=== PATIENT | female | born 1995 | race Caucasian/White ===

== ENCOUNTER → 2023-10-24 | Outpatient (CLI) | payer BC, SELFPAY ==
[2023-10-24 10:23] LABS: Prolactin 17.7 ng/mL
[2023-10-29 09:09] LABS: Anti-Cardiolipin Ab, IgA, Qn < 9 APL U/mL (0-11); Anti-Cardiolipin Ab, IgG, Qn < 9 GPL U/mL (0-14); Anti-Cardiolipin Ab, IgM, Qn < 9 MPL U/mL (0-12); Beta-2-Glycoprotein I IgA <9 (0-25); Beta-2-Glycoprotein I IgG <9 (0-20); Beta-2-Glycoprotein I IgM <9 (0-32); Dilute Prothrombin Time (dPT) 37.4 sec (0.0-47.6); Dilute Russell Viper Venom 35.1 sec (0.0-47.0); Interpretation Comment: (.); PTT-LA 41.2 sec (0.0-43.5); Testosterone Free 1.2 pg/mL (0.0-4.2); Thrombin Time 17.4 sec (0.0-23.0); dPT Confirm Ratio 0.97 Ratio (0.00-1.34)
== END | disposition home or self-care (01) ==
PROVIDERS: Referring Provider Obstetrics & Gynecology; Visit Provider Obstetrics & Gynecology
DX: Q51.9 Congenital malformation of uterus and cervix, unspecified (principal)
CPT/HCPCS: 36415; 82627; 84146; 84402; 86146; 86147; 82626

== ENCOUNTER → 2025-04-28 | Outpatient (CLI) | payer OTHER, SELFPAY ==
[2025-04-28 19:34] LABS: hCG Titer Quant., Serum 270 mIU/mL (<9 non-preg)
== END | disposition home or self-care (01) ==
PROVIDERS: Referring Provider Advanced Practice Midwife; Visit Provider Advanced Practice Midwife
DX: N91.2 Amenorrhea, unspecified (principal)
CPT/HCPCS: 36415; 84702

== ENCOUNTER → 2025-04-30 | Outpatient (CLI) | payer OTHER, SELFPAY ==
[2025-04-30 17:33] LABS: hCG Titer Quant., Serum 704 mIU/mL (<9 non-preg)
== END | disposition home or self-care (01) ==
LOC: LAB 16:35
PROVIDERS: Referring Provider Advanced Practice Midwife; Visit Provider Advanced Practice Midwife
DX: N91.2 Amenorrhea, unspecified (principal)
CPT/HCPCS: 36415; 84702

== ENCOUNTER → 2025-06-10 | Outpatient (CLI) | payer OTHER, SELFPAY ==
--- OUTSIDE RECORDS SUMMARY | 2025-06-10 10:07 | XMS RPT_ITS | CCD ---
Author Organization [facility] Care Team Providers Care Hose Seamer Name Role Phone Satinder Dos Santos Unavailable [phone] Maura Monsivais Unavailable Unavailable Satinder Dos Santos Unavailable Unavailable Unavailable Jerson, Josh Heart Unavailable Unavailable Primary Care Provider UnavailDavid Santa Attending Unavailabl e Kulpmont, Dilia Springer Referring Unavailabl e Jerson, Dilia Springer Primary Care Unavailabl David Navarro Attending Unavailabl e Jerson, Dilia Springer Primary Care Unavailabl e Satinder Dos Santos Primary Care Unavailable Jerson, Dilia Springer Attending Unavailabl e Jerson, Dilia Springer Referring Unavailabl e Jerson, Dilia Springer Primary Care Unavailabl e Kulpmont, Dilia Springer Attending Unavailabl e Kulpmont, Dilia Springer Referring Unavailabl e Jerson, Dilia Springer Primary Care Unavailabl e Jerson, Dilia Springer Attending Unavailabl e Jerson, Dilia Springer Referring Unavailabl e Dos SantosSatinder rangel Primary Care Unavailable Kulpmont, Dilia Springer Attending Unavailabl e Jerson, Dilia Springer Referring Unavailabl e Satinder Dos Santos MD Primary Care Provider Jerson Josh GRAFF Primary Care Provider Jerson Josh GRAFF Unavailable JOSH ARTHUR Attending Unavailable JERSON, JOSH Heart Primary Care Unavailable JERSON, JOSH Heart Primary Care Unavailable Dr. Umm Murphy Attending Provider JERSON, JOSH Primary Care Provider Unavailabl e JERSON, JOSH Referring Provider Unavailable Unavailable Primary Care Provider Unavailabl e SATINDER DOS SANTOS Primary Care Unavailable FALLS, LOPEZ SALEH Referring Unavailabl e JERSON, JOSH SPRINGER Admitting Unavailable FALLS, LOPEZ SALEH Attending Unavailabl e DOS SANTOS, SATINDER JACOBS Primary Care Unavailable JERSON, JOSH SPRINGER Referring Unavailable FALLS, LOPEZ SALEH Attending Unavailabl e DOS SANTOS, SATINDER JACOBS Primary Care Unavailable Umm Murphy MD Unavailable ISAAC, VINOD Referring Unavailable BAMBAKIDIS, VINOD Attending Unavailable BAMBAKIDIS, VINOD Attending Unavailable TOMAZICPILAR Referring Unavail able EATON, MARIA TERESA Dugan Attending Unavailable EATON, MARIA TERESA Dugan Referring Unavailable EATON, MARIA TERESA Dugan Attending Unavailable BAMBAKIDIS, VINOD Referring Unavailable BAMBAKIDIS, VINOD Referring Unavailable BAMBAKIDIS, VINOD Referring Unavailable BAMBAKIDIS, VINOD Referring Unavailable EATON, MARIA TERESA Dugan Referring Unavailable EATON, MARIA TERESA Dugan Referring Unavailable EATON, MARIA TERESA S Referring Unavailable Care Physician, No Primary Primary Care Physicia n Unavailable Tej JACOBO, Val Attending Physician [phone] Val Burnham CNM Referring Provider Care Physician, No Primary Primary Care Unava ilable Care Physician, No Primary Referring Unava ilable Val Burnham Attending Unavailable Care Physician, No Primary Primary Care Unava ilable Val Burnham Attending Unavailable Val Burnham Referring Unavailable Care Physician, No Primary Primary Care Unava ilable Val Burnham Attending Unavailable Val Burnham Referring Unavailable Medications Current Medications Medication Drug Class(es) Dates Sig (Normalized) Sig (Original) Biotin (8 sources) BIOTIN ORAL Take by mouth. Active CYANOCOBALAMIN, VITAMIN B-12, ORAL (8 sources) CYANOCOBALAMIN, VITAMIN B-12, ORAL Take by mouth. Active docosahexaenoic acid/epa (FISH OIL ORAL) (8 sources) docosahexaenoic acid/epa (FISH OIL ORAL) Take by mouth. Active DULoxetine 60 mg delayed release oral capsule (1 source) Serotonin and Norepinephrine Reuptake Inhibitor take 1 capsule by mouth once daily Cymbalta 60 mg oral delayed release capsule ; 1 cap(s) orally once a day Quantity: 0 Refills: 0 Ordered: 07-Oct-2019 Meenu Damian Generic Substitution Allowed ergocalciferol 1.25 mg oral capsule (20 sources) Provitamin D2 Compound Start: 05-27-2024 take 1 capsule by mouth every week ergocalciferol 50,000 unit capsule (VITAMIN D2, DRISDOL) Take 1 capsule by mouth one time a week. 12 capsule 05/27/2024 Active Start: 12-13-2022 End: 12-13-2023 take 1 capsule by mouth every week ergocalciferol (Vitamin D-2) 1.25 MG (88663 UT) capsule Indications: Vitamin D deficiency Take 1 capsule (1,250 mcg) by mouth 1 (one) time per week. 12 capsule 3 12/13/2022 12/13/2023 Active Start: 05-31-2022 take 1 capsule by mo uth every week Vitamin D (Ergocalciferol) 1.25 MG (37428 UT) Oral Capsule TAKE 1 CAPSULE ONE TIME A WEEK Quantity: 5 Refills: 3 Ordered: 31-May-2022 Josh Mcclelland Start : 31-May-2022 Active ibuprofen 200 mg oral tablet (9 sources) Nonsteroidal Anti-inflammatory Drug Start: 02-17-2024 End: 05-26-2024 take 3 tablets by mouth every six hours as needed ibuprofen (MOTRIN) 200 mg tablet Take 3 tablets by mouth every 6 hours as needed for pain. Take with food. 02/17/2024 05/26/2024 Discontinued iv contrast (will be provided with radiology test) (10 sources) Start: 09-15-2024 inject 1 dose intravenously once iv contrast (will be provided with radiology test) MRI Brain Inject, intravenously, once for 1 dose.No IV access, insert saline lock prior to beginning of sedation, infusion, injection of imaging exam.Discontinue saline lock post exam. If Pt. has a central line or IVAD, may access for administration according to line specific nursing protocol.Once exam is complete flush line and de-access according to line specific nursing protocol in the MR contrast administration guidelines link 1 Each 09/15/2024 Active Start: 04-02-2024 End: 04-03-2024 inject 1 dose intravenously once iv contrast (will be provided with radiology test) Indications: Numbness and tingling in left hand , Left hand weakness MRI Brain Inject, intravenously, once for 1 dose.No IV access, insert saline lock prior to beginning of sedation, infusion, injection of imaging exam.Discontinue saline lock post exam. If Pt. has a central line or IVAD, may access for administration according to line specific nursing protocol.Once exam is complete flush line and de-access according to line specific nursing protocol in the MR contrast administration guidelines link 1 Each 04/02/2024 04/03/2024 Start: 04-02-2024 End: 04-03-2024 iv contrast (will be provide d with radiology test) Indications: Numbness and tingling in left hand , Left hand weakness MRI CSP Inject, intravenously, once for 1 dose. No IV access, insert saline lock prior to the beginning of sedation, infusion, injection of imaging exam. Discontinue saline lock post exam. If Pt. has a central line or IVAD, may access for administration according to line specific nursing protocol. Once exam is complete flush line and de-access according to line specific nursing protocol in the MR contrast administration guidelines link. 1 Each 04/02/2024 04/03/2024 ocrelizumab (OCREVUS INTRAVENOUS) (8 sources) ocrelizumab (OCR EVUS INTRAVENOUS) Inject intravenously. Active sertraline 25 mg oral tablet (9 sources) Serotonin Reuptake Inhibitor Start: 5 End: 5 take 1 tablet by mouth once daily sertraline (ZOLOFT) 25 mg tablet Take 1 tablet by mouth once daily. 30 tablet 11 11/10/2024 Active vitamin b12 1 mg/ml injectable solution (12 sources) Vitamin B12 Start: 3 cyanocobalamin (Vitamin B-12) 1,000 mcg/mL injection Indications: Vitamin B12 deficiency INJECT 1 ML ONCE EVERY MONTH 1 mL 3 12/13/2022 Active Start: 07-02-2022 inject 1 mL by intra muscular injection every month Cyanocobalamin 1000 MCG/ML Injection Solution INJECT 1 ML INTRAMUSCULARLY ONCE A MONTH Quantity: 1 Refills: 2 Ordered: 05-Jul-2022 Josh Mcclelland Start : 05-Jul-2022 Active Start: 06-04-2022 inject 1 mL by intra muscular injection every month Cyanocobalamin 1000 MCG/ML Injection Solution INJECT 1 ML INTRAMUSCULARLY ONCE A MONTH Quantity: 0 Refills: 0 Ordered: 04-Jun-2022 Josh Mcclelland Start : 04-Jun-2022 Complete Vitamin Deficien cy System-B12 1000 MCG/ML Injection Kit Quantity: 0 Refills: 0 Ordered: 03-Jul-2022 DO Active Completed/Discontinued Medications Medication Drug Class(es) Dates Sig (Normalized) Sig (Original) acetaminophen 500 mg oral tablet (11 sources) Start: 07-13-2024 End: 07-13-2024 take 1 dose by mouth once, then take 4000 mg by mouth once daily 1,000 mg, ORAL, ONCE, 1 dose, On Sat07/13/24 at 1030, No more than 4000 mg of acetaminophen should be given per day (FROM ALL SOURCES) Start: 06-29-2024 End: 06-29-2024 take 1 dose by mouth once, then take 4000 mg by mouth once daily 1,000 mg, ORAL, ONCE, 1 dose, On Sat06/29/24 at 1000, No more than 4000 mg of acetaminophen should be given per day (FROM ALL SOURCES) Start: 02-17-2024 End: 05-26-2024 take 2 tablets by mouth every eight hours as needed acetaminophen (TYLENOL EXTRA STRENGTH) 500 mg tablet Take 2 tablets by mouth every 8 hours as needed for pain. 30 tablet 02/17/2024 05/26/2024 Discontinued diphenhydrAMINE hydrochloride 25 mg oral capsule (2 sources) Histamine-1 Receptor Antagonist Start: 07-13-2024 End: 07-13-2024 take 1 dose by mouth once 50 mg, ORAL, ONCE, 1 dose, On Sat07/13/24 at 1030 Start: 06-29-2024 End: 06-29-2024 take 1 dose by mouth once 50 mg, ORAL, ONCE, 1 dose, O n Sat06/29/24 at 1000 famotidine 20 mg oral tablet (11 sources) Histamine-2 Receptor Antagonist Start: 05-26-2024 End: 09-15-2024 take 1 tablet by mouth twice daily famotidine (PEPCID) 20 mg tablet Take 1 tablet by mouth two times a day. 30 tablet 05/26/2024 09/15/2024 Discontinued methylPREDNISolone 125 mg injection (2 sources) Corticosteroid Start: 07-13-2024 End: 07-13-2024 100 mg, INTRAVENOUS, ONCE, 1 dose, On Sat07/13/24 at 1030 Start: 06-29-2024 End: 06-29-2024 100 mg, INTRAVENOUS, ONCE, 1 dose, On Sat06/29/24 at 1000 10 ml ocrelizumab 30 mg/ml injection (2 sources) Start: 07-13-2024 End: 07-13-2024 300 mg, INTRAVENOUS, ONCE, 1 dose, On Sat07/13/24 at 1030, Initial infusion. Start infusion at 30 mL/hr, Increase by 30 mL/hr every 30 minutes. Maximum rate = 180 mL/hr APPROXIMATE TOTAL VOLUME: 285 mL For 300 mg doses, administer one 300 mg/250 mL bag. For 600 mg doses, administer two 300 mg/250 mL bags. Administer with 0.2 micron filter. Refrigerate. Start: 06-29-2024 End: 06-29-2024 300 mg, INTRAVENOUS, ONCE, 1 dose, On Sat06/29/24 at 1000, Initial infusion. Start infusion at 30 mL/hr, Increase by 30 mL/hr every 30 minutes. Maximum rate = 180 mL/hr APPROXIMATE TOTAL VOLUME: 285 mL For 300 mg doses, administer one 300 mg/250 mL bag. For 600 mg doses, administer two 300 mg/250 mL bags. Administer with 0.2 micron filter. Refrigerate. predniSONE 20 mg oral tablet (20 sources) Start: 05-26-2024 End: 09-15-2024 predniSONE (DELTASONE) 50 mg Indications: multiple sclerosis Take 13 tablets in the morning and 12 tablets in the mid afternoon daily for 3 days. Take with food. 75 tablet 05/26/2024 09/15/2024 Discontinued Start: 05-26-2024 End: 09-15-2024 predniSONE (DELTASONE) 20 mg tablet Take 3 tablets for 4 days, then take 2 tablets for 4 days, then take 1 tablet for 4 days, then stop. 25 tablet 05/26/2024 09/15/2024 Discontinued Problems Active Problems Problem Classification Problem Date Documented Date Episodic/Chronic Anxiety disorders (20 sources) Mixed anxiety and depressive disorder; Translations: [Anxiety disorder, unspecified] Onset: 01-30-2024 01-30-2024 Chronic Female infertility (4 sources) Secondary female infertility; Translations: [Female infertility, unspecified] 10-07-2023 Chronic Comment on above: labs and pelvis mri, SA ordered. 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 Immunizations and screening for infectious disease (5 sources) Anti-nuclear factor positive; Translations: [Other specified abnormal immunological findings in serum] Onset: 12-13-2023 12-13-2023 Episodic Menstrual disorders (1 source) Amenorrhea, unspecified; Translations: [Amenorrhea, unspecified] Onset: 05-07-2025 Chronic Multiple sclerosis (20 sources) Multiple sclerosis; Translations: [Multiple sclerosis] Onset: 05-26-2024 05-26-2024 Chronic Nutritional deficiencies (18 sources) Vitamin D deficiency; Translations: [Unspecified vitamin D deficiency] Onset: 12-13-2022 06-19-2023 Chronic Nutritional deficiencies (15 sources) Cobalamin deficiency; Translations: [Other B-complex deficiencies] Onset: 12-13-2022 06-19-2023 Episodic Other complications of (1 source) Supervision of high risk , unspecified, unspecified trimester; Translations: [Supervision of high risk , unspecified, unspecified trimester] Onset: 06-02-2025 Episodic Other connective tissue disease (4 sources) Weakness of left hand; Translations: [Other symptoms and signs involving the musculoskeletal system] 04-02-2024 Episodic Other female genital disorders (4 sources) History of recurrent miscarriage - not ; Translations: [Recurrent loss without current ] Episodic Other female genital disorders (3 sources) Recurrent miscarriage; 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 Other female genital disorders (1 source) Recurrent loss; Translations: [Full-term ] 10-07-2023 Episodic Other nervous system disorders (1 source) Polyneuropathy; Translations: [Polyneuropathy, unspecified] 04-02-2024 Chronic Other nervous system disorders (1 source) Demyelinating disease of central nervous system; Translations: [Demyelinating disease of central nervous system, unspecified] 05-01-2024 Chronic Other nervous system disorders (2 sources) Polyneuropathy, unspecified; Translations: [Peripheral polyneuropathy] Onset: 04-02-2024 Chronic Other nervous system disorders (1 source) Demyelinating disease of central nervous system, unspecified; Translations: [[employer] demyelination (HCC)] Onset: 05-07-2024 Chronic Other nervous system disorders (10 sources) Numbness and tingling sensation of skin; Translations: [Disturbance of skin sensation] Episodic Other nervous system disorders (7 sources) Numbness of upper limb; Translations: [Anesthesia of skin] Episodic Other nervous system disorders (2 sources) Numbness; Translations: [Anesthesia of skin] Episodic Other nervous system disorders (1 source) Paresthesia of upper limb; Translations: [Anesthesia of skin] 06-19-2023 Episodic Other nervous system disorders (3 sources) Paresthesia of hand ; Translations: [Anesthesia of skin] 04-01-2024 Episodic Other nervous system disorders (1 source) Involuntary movement; Translations: [Other abnormal involuntary movements] 04-01-2024 Episodic Other non-traumatic joint disorders (1 source) Joint stiffness; Translations: [Stiffness of unspecified joint, not elsewhere classified] 06-19-2023 Episodic Other non-traumatic joint disorders (4 sources) Stiffness of unspecified joint, not elsewhere classified; Translations: [Stiffness of unspecified joint, not elsewhere classified] Onset: 06-19-2023 Episodic Other non-traumatic joint disorders (1 source) Joint pain; Translations: [Pain in unspecified joint] 12-13-2023 Episodic Other non-traumatic joint disorders (2 sources) Pain in unspecified joint; Translations: [Pain in unspecified joint] Onset: 12-13-2023 Episodic Other screening for suspected conditions (not mental disorders or infectious disease) (14 sources) Patient encounter status; Translations: [Screening for malignant neoplasms of cervix] Onset: 07-03-2022 Episodic Other skin disorders (3 sources) Hirsutism; Translations: [Hirsutism] 10-07-2023 Episodic Comment on above: labs ordered Other skin disorders (1 source) Hirsutism; Translations: [Hirsutism] 10-07-2023 Episodic Residual codes; unclassified (4 sources) H/O: miscarriage; Translations: [Personal history of other genital system and obstetric disorders] Episodic Comment on above: 12/18/2020_14weeks_10weeks; Residual codes; unclassified (1 source) Trying to conceive; Translations: [Other specified health status] 06-19-2023 Episodic Residual codes; unclassified (4 sources) Other specified health status; Translations: [Other specified health status] Onset: 06-19-2023 Episodic Residual codes; unclassified (1 source) Pain; Translations: [Pain, unspecified] 04-01-2024 Episodic Spontaneous (8 sources) Miscarriage; Translations: [Spontaneous , without mention of complication, unspecified] 12-18-2020 Episodic Unclassified (2 sources) 18 WEEKS MISCARRIAGE THIS MORNING 12-18-2020 Comment on above: 18 WEEKS [place] SCARRIAGE THIS MORNING Unclassified (1 source) SAB (spontaneous ) 12-18-2020 Past or Other Problems Problem Classification Problem Date Documented Date Episodic/Chronic Other connective tissue disease (1 source) Other symptoms and signs involving the musculoskeletal system; Translations: [Left hand weakness] Onset: 05-14-2024 Episodic Other nervous system disorders (7 sources) Anesthesia of skin; Translations: [Anesthesia of skin] Onset: 06-19-2023 Episodic Other nervous system disorders (5 sources) Paresthesia of skin; Translations: [Paresthesia of skin] Onset: 06-19-2023 Episodic Unclassified (4 sources) Finding of menstrual bleeding; Translations: [Menstruation] Comment on above: Onset age 13 years; Results Test Name Value Interpretation Reference Range Facility Serum human chorionic gonado tropin detection for pregnancyOrdered By: Val Burnham on 04-30-2025 HCG ( test) Ql 704 mIU/mL High <9 [facility] Comment on above: Gestational Age0.2-1 Week: 5-50 mIU/mL1-2 Weeks: 50-500 mIU/mL2-3 Weeks: 100-5000 mIU/mL3-4 Weeks: 500-10,000 mIU/mL4-5 Weeks:1000-50,000 mIU/mL5-6 Weeks: 10,000-100,000 mIU/mL6-8 Weeks: 15,000-200,000 mIU/mL2-3 Months:10,000-100,000 mIU/mL hCG Titer Quant., Serumon HCG QUANT. 704 mIU/mL High <9 [facility] Comment on above: Result Comment: Gest ational Age 0.2-1 Week: 5-50 mIU/mL 1-2 Weeks: 50-500 mIU/mL 2-3 Weeks: 100-5000 mIU/mL 3-4 Weeks: 500-10,000 mIU/mL 4-5 Weeks:1000-50,000 mIU/mL 5-6 Weeks: 10,000-100,000 mIU/mL 6-8 Weeks: 15,000-200,000 mIU/mL 2-3 Months:10,000-100,000 mIU/mL Performed By: #### L 700.8000 #### [facility] [address] [place], [address] Serum human chorionic gonado tropin detection for pregnancyOrdered By: Val Burnham on 04-28-2025 HCG ( test) Ql 270 mIU/mL High <9 [facility] Comment on above: Gestational Age0.2-1 Week: 5-50 mIU/mL1-2 Weeks: 50-500 mIU/mL2-3 Weeks: 100-5000 mIU/mL3-4 Weeks: 500-10,000 mIU/mL4-5 Weeks:1000-50,000 mIU/mL5-6 Weeks: 10,000-100,000 mIU/mL6-8 Weeks: 15,000-200,000 mIU/mL2-3 Months:10,000-100,000 mIU/mL [facility]., [facility] mIU/mL High <9 non-preg [facility] Comment on above: Result Comment: Gest ational Age 0.2-1 Week: 5-50 mIU/mL 1-2 Weeks: 50-500 mIU/mL 2-3 Weeks: 100-5000 mIU/mL 3-4 Weeks: 500-10,000 mIU/mL 4-5 Weeks:1000-50,000 mIU/mL 5-6 Weeks: 10,000-100,000 mIU/mL 6-8 Weeks: 15,000-200,000 mIU/mL 2-3 Months:10,000-100,000 mIU/mL Performed By: #### L 700.8000 #### [facility] [address] [place], [address] [facility] Brain Enhancing Lesions None [facility] Brain Interval Improvement None [facility] Brain New T2 Lesions None Site [facility] Brain Other Significant MRI Findings None. [facility] Brain Parenchymal Volume Loss None [facility] Brain T2 [place] of Disease Mild [facility] MR Brain WO and W contrast I Von 12-21-2024 IMPRESSION: Multiple intracranial white matter lesions compatible with multiple sclerosis. No new T2 lesions and no new enhancing lesions. No significant parenchymal volume loss. Other Significant Intracranial Findings: None Balance Wheel Screw Hole Tapper: NANCY Transcribe Date/Time: Dec 21 2024 8:48A Dictated by : KIANA VALENCIA MD This examination was interpreted and the report reviewed and electronically signed by: KIANA VALENCIA MD on Dec 21 2024 8:53AM [facility] DIVISION OF RADIOLOGY * * *Final Report* * * DATE OF EXAM: Dec 21 2024 8:30AM [facility] 0[facility] - MRI BRAIN WO/W IVCON / PROCEDURE REASON: Multiple sclerosis (HCC) * * * * Physician Interpretation * * * * EXAMINATION: MRI BRAIN WO/W IVCON HISTORY: Multiple sclerosis. Routine follow-up TECHNIQUE: Brain MRI with demyelinating disease protocol with and without IV gadolinium. MQ: [id number] Contrast: 7.5 mL Elucirem IV COMPARISON: Brain MRI 08/06/2024. RESULT: MR BRAIN: Parenchymal Findings: There are multiple foci of hyperintensity on FLAIR and T2 within the white matter, compatible with the clinical diagnosis of multiple sclerosis. New T2 Lesions: None Site(s) of New/Larger T2 Lesion(s): Not applicable Interval Improvement: None. New Enhancing Lesions: None T2 [place] of Disease: Mild. Parenchymal Volume Loss: None. Other Significant Findings: None. *Note:? The definition of new T2 Lesions includes both new and enlarging plaques on T2-weighted FLAIR images (new lesions greater than or equal to 5mm3 or an increase in diameter of an existing lesion by greater than or equal to 2mm). DIVISION OF RADIOLOGY Provider, Denny Gutierrez [facility] - 12/21/2024 * * *Final Report* * * DATE OF EXAM: Dec 21 2024 8:30AM [facility] 0295 - MRI BRAIN WO/W IVCON / PROCEDURE REASON: Multiple sclerosis (HCC) * * * * Physician Interpretation * * * * EXAMINATION: MRI BRAIN WO/W IVCON HISTORY: Multiple sclerosis. Routine follow-up TECHNIQUE: Brain MRI with demyelinating disease protocol with and without IV gadolinium. MQ: [id number] Contrast: 7.5 mL Elucirem IV COMPARISON: Brain MRI 08/06/2024. RESULT: MR BRAIN: Parenchymal Findings: There are multiple foci of hyperintensity on FLAIR and T2 within the white matter, compatible with the clinical diagnosis of multiple sclerosis. New T2 Lesions: None Site(s) of New/Larger T2 Lesion(s): Not applicable Interval Improvement: None. New Enhancing Lesions: None T2 [place] of Disease: Mild. Parenchymal Volume Loss: None. Other Significant Findings: None. *Note:? The definition of new T2 Lesions includes both new and enlarging plaques on T2-weighted FLAIR images (new lesions greater than or equal to 5mm3 or an increase in diameter of an existing lesion by greater than or equal to 2mm). IMPRESSION IMPRESSION: Multiple intracranial white matter lesions compatible with multiple sclerosis. No new T2 lesions and no new enhancing lesions. No significant parenchymal volume loss. Other Significant Intracranial Findings: None Balance Wheel Screw Hole Tapper: NANCY Transcribe Date/Time: Dec 21 2024 8:48A Dictated by : KIANA VALENCIA MD This examination was interpreted and the report reviewed and electronically signed by: KIANA VALENCIA MD on Dec 21 2024 8:53AM [facility] MR Brain WO and W contrast I VOrdered By: [facility] Provider on 12-21-2024 [facility] MRI BRAIN WO/W IVCONon 12-21 MRI BRAIN WO/W IVCON * * *Final Report* * * DATE OF EXAM: Dec 21 2024 8:30AM [facility] 0295 - MRI BRAIN WO/W IVCON / PROCEDURE REASON: Multiple sclerosis (HCC) * * * * Physician Interpretation * * * * EXAMINATION: MRI BRAIN WO/W IVCON HISTORY: Multiple sclerosis. Routine follow-up TECHNIQUE: Brain MRI with demyelinating disease protocol with and without IV gadolinium. MQ: [id number] Contrast: 7.5 mL Elucirem IV COMPARISON: Brain MRI 08/06/2024. RESULT: MR BRAIN: Parenchymal Findings: There are multiple foci of hyperintensity on FLAIR and T2 within the white matter, compatible with the clinical diagnosis of multiple sclerosis. New T2 Lesions: None Site(s) of New/Larger T2 Lesion(s): Not applicable Interval Improvement: None. New Enhancing Lesions: None T2 [place] of Disease: Mild. Parenchymal Volume Loss: None. Other Significant Findings: None. *Note:? The definition of new T2 Lesions includes both new and enlarging plaques on T2-weighted FLAIR images (new lesions greater than or equal to 5mm3 or an increase in diameter of an existing lesion by greater than or equal to 2mm). IMPRESSION: Multiple intracranial white matter lesions compatible with multiple sclerosis. No new T2 lesions and no new enhancing lesions. No significant parenchymal volume loss. Other Significant Intracranial Findings: None Balance Wheel Screw Hole Tapper: NANCY Transcribe Date/Time: Dec 21 2024 8:48A Dictated by : KIANA VALENCIA MD This examination was interpreted and the report reviewed and electronically signed by: KIANA VALENCIA MD on Dec 21 2024 8:53AM EST [id number] Normal [facility] No Panel Informationon 12-21 Radiology Study observation (narrative) [facility] CNOVon 09-15-2024 CNOV Office Visit (NEMEFV ) -------- TYLER HO ([id number]) 1995 F Date Time Provider Department 09/15/24 2:00 PM MARIA TERESA EATON NEMEFV During your visit today, we recorded the following information about you: Pulse Blood pressure Weight Height 68/minute 119/77 77.4 kg 1.778 m Maria Teresa Eaton MD 09/15/2024 2:25 PM [facility] FOLLOWUP EVALUATION PRINCIPAL NEUROLOGIC DIAGNOSIS: Multiple sclerosis DISEASE HISTORY Onset: ~ 2020 Diagnosis of MS: MAY 2024 Disease course at onset: relapsing-remitting Current disease course: relapsing-remitting Prior disease therapy: none Current disease therapy: Ocrevus. Date started: 29 JUN 2024 Last MRI brain: 30 APR 2024 Last MRI cervical spine: 30 APR 2024 JCV Status: (+) on 26 MAY 2024 with an Ab Index of 2.33 CDS1: (-) on 26 MAY 2024 INTERVAL HISTORY: Tyler Ho is a 28 year old woman with multiple sclerosis returning for follow-up after our last visit on 26 May 2024. The infusion of Ocrevus went well. She was a little tired following it. She remains able to use her hands. They are a little numb, but nothing that gets in the way too much. Stress tends to make the symptoms worse. She is under stress with her mother who has schizoaffective disorder. From a mood perspective, she has struggled with depression and anxiety for awhile. Her mood is on the lower side and her anxiety is a bit on the higher side. She has been on anti-depressant therapy about 10 years ago. She did not notice a significant improvement with this for her depression. Ms. Ho has noticed brain fog. Short-term is especially affected, especially over the last six months. 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 From a sleep perspective, she usually goes to bed around midnight and she gets up at 5:30 am. On average, she is getting around 5.5 hours of sleep. Bowel and bladder function have been good. She remains stable from a mobility perspective. Sometimes it feels like her eyes are moving slow and do not catch up with her brain. PAST HISTORY REVIEWED: PAST MEDICAL HISTORY Diagnosis Date Multiple sclerosis (HCC) PAST SURGICAL HISTORY Procedure Laterality Date PAST SURGICAL HISTORY OF Intrauterine septum resection TONSILLECTOMY AND ADENOIDECTOMY Current Outpatient Medications Medication Sig ergocalciferol 50,000 unit capsule (VITAMIN D2, DRISDOL) Take 1 capsule by mouth one time a week. predniSONE (DELTASONE) 50 mg Take 13 tablets in the morning and 12 tablets in the mid afternoon daily for 3 days. Take with food. famotidine (PEPCID) 20 mg tablet Take 1 tablet by mouth two times a day. predniSONE (DELTASONE) 20 mg tablet Take 3 tablets for 4 days, then take 2 tablets for 4 days, then take 1 tablet for 4 days, then stop. No current facility-administered medications for this visit. SOCIAL HISTORY REVIEWED: Social History Tobacco Use Smoking status: Never Smokeless tobacco: Never Vaping Use Vaping status: Never Used Substance Use Topics Alcohol use: Yes Alcohol/week: 4.0 standard drinks of alcohol Types: 4 Standard drinks or equivalent per week Comment: every other day 1 drink Drug use: Never ROS: Comprehensive review of systems otherwise was negative, including constitutional, head and neck, cardiovascular, pulmonary, gastrointestinal, endocrine, urologic, reproductive, rheumatic, hematologic, immunologic, dermatologic, and psychiatric. Nutritional concerns: None Driving issues: None Concerns regarding living situation and safety at home: None Risk of falls: None Pain: None EXAM: 09/15/24 1343 BP: 119/77 Pulse: 68 Weight: 77.4 kg (170 lb 10.2 oz) Height: 177.8 cm (5' 10") Well-groomed. No acute distress. The patient was alert and oriented to person, place, and time with normal language, attention and concentration, recent and remote memory, praxis, and intellectual function. Affect was normal. The patient did not appear depressed. VA 20/20 OU. Full EOM without nystagmus or ataxia. Normal facial movements. Normal hearing. Normal palatal movements. Normal tongue movements. No dysarthria. Motor Examination: Right Upper Extremity: (of 5) Left Upper Extremity: (of 5) Deltoid 5 Deltoid 5 Biceps 5 Biceps 5 Triceps 5 Triceps 5 Finger extensors 5- Finger extensors 5- Finger flexors 5- Finger flexors 5 Dorsal interossei 5 Dorsal interossei 5 Abductor pollicis 5 Abductor pollicis 5 Tone (Juan Carlos scale) 0 Tone (Juan Carlos scale) 0 Right Lower Extremity: (of 5) Left Lower Extremity: (of 5) Hip flexors 5- Hip flexors 5 Hip extensors 5 Hip extensors 5 Knee flexors 5 Knee flexors 5 Knee extensors 5 Knee extensors 5 Dorsiflexors 5 Dorsiflexors 5 Plantarflexors 5 Plantarflexors 5 Tone (Juan Carlos scale) 0 Tone (Juan Carlos scale) 0 Modified Juan Carlos Sco (more content not included)... Normal [facility] 09-15-2024 [facility] Telephone (NEMSMN) -------- NUPURTYLER ([id number]) 1995 F Date Time Provider Department 09/15/24 [facility] your visit today, we recorded the following information about you: Ruthie Clemens 09/15/2024 2:26 PM Signed lvm for patient to call so we can get her scheduled for her neuropsychological test Allergies As of Date: 09/15/2024 (No Known Allergies) Date Reviewed: 09/15/2024 Reviewed by: Maria Teresa Eaton MD - Fully Assessed Reason for Visit: Appointment [186] Cmt: lvm for patient to call so we can get her scheduled for her neuropsychological test Prescriptions as of 09/15/2024 - docosahexaenoic acid/epa (FISH OIL ORAL) Take by mouth. - ocrelizumab (OCREVUS INTRAVENOUS) Inject intravenously. - BIOTIN ORAL Take by mouth. - CYANOCOBALAMIN, VITAMIN B-12, ORAL Take by mouth. - iv contrast (will be provided with radiology test) MRI Brain Inject, intravenously, once for 1 dose.No IV access, insert saline lock prior to beginning of sedation, infusion, injection of imaging exam.Discontinue saline lock post exam. If Pt. has a central line or IVAD, may access for administration according to line specific nursing protocol.Once exam is complete flush line and de-access according to line specific nursing protocol in the MR contrast administration guidelines link - sertraline (ZOLOFT) 25 mg tablet Take 1 tablet by mouth once daily. - ergocalciferol 50,000 unit capsule (VITAMIN D2, DRISDOL) Take 1 capsule by mouth one time a week. Problem List As Of Date 09/15/2024 Noted Resolved Anxiety and depression [F41.9, F32.A] 01/30/2024 Multiple sclerosis (HCC) [G35] 05/26/2024 Encounter Status:Closed by RUTHIE CLEMENS on 09/15/24 Normal [facility] IMMUNOGLOBULIN Alejandro 4 IgG [Mass/Vol] 1025 mg/dL 700 - 1600 mg/dL [facility] IMMUNOGLOBULIN Mon 4 IgM [Mass/Vol] 211 mg/dL 40 - 230 mg/dL [facility] IgG SerPl-mCncon 06-29-2024 IgG [Mass/Vol] 1025 mg/dL Normal 700-1600 [facility] Comment on above: Order Comment: Elisa wiggins Type: BLOOD SPECIMENOrdering Facility: [facility] Address: [address] [place] [address] Performed By: #### 2 472-9, 5425-3 ####[facility] LABCLIA [id number] [place] [address] [place] IgM SerPl-mCncon 06-29-2024 IgM [Mass/Vol] 211 mg/dL Normal 40-230 [facility] Comment on above: Order Comment: Elisa wiggins Type: BLOOD SPECIMENOrdering Facility: [facility] Address: [address] [place] [address] Performed By: #### 2 472-9, 5345-3 ####[facility] LABCLIA [id number] [place] [address] [place] No Panel Informationon 06-29 Interpretation and review of laboratory results Normal [facility] Laura 06-22-2024 [facility] Telephone (JOSE A) -------- TYLER HO ([id number]) 1995 F Date Time Provider Department 06/22/24 MARIA TERESA EATON During your visit today, we recorded the following information about you: Elmira Cardoza 06/22/2024 10:46 AM Signed Called to schedule Ocrevus start up dose. patient has been approved for free drug. LVM with phone number to call and schedule Allergies As of Date: 06/22/2024 (No Known Allergies) Date Reviewed: 05/26/2024 Reviewed by: Maria Teresa Eaton MD - Fully Assessed Reason for Visit: Appointment [186] Cmt: Called to schedule Ocrevus start up dose. patient has been approved for free drug. LVM with phone number to call and schedule Prescriptions as of 06/22/2024 - ergocalciferol 50,000 unit capsule (VITAMIN D2, DRISDOL) Take 1 capsule by mouth one time a week. - predniSONE (DELTASONE) 50 mg Take 13 tablets in the morning and 12 tablets in the mid afternoon daily for 3 days. Take with food. - famotidine (PEPCID) 20 mg tablet Take 1 tablet by mouth two times a day. - predniSONE (DELTASONE) 20 mg tablet Take 3 tablets for 4 days, then take 2 tablets for 4 days, then take 1 tablet for 4 days, then stop. Problem List As Of Date 06/22/2024 Noted Resolved Anxiety and depression [F41.9, F32.A] 01/30/2024 Multiple sclerosis (HCC) [G35] 05/26/2024 Encounter Status:Closed by ELMIRA CARDOZA on 06/22/24 [facility] TYLER HO ([id number]) 1995 F Date Time Provider Department 06/17/24 RUBY CEDENO RENE During your visit today, we recorded the following information about you: Ruthie Clemens 06/17/2024 9:00 AM Signed lvm informing patient that her infusion has been scheduled seeing as she should be scheduled for the start up dose and we have to wait for authorization to schedule Allergies As of Date: 06/17/2024 (No Known Allergies) Date Reviewed: 05/26/2024 Reviewed by: Maria Teresa Eaton MD - Fully Assessed Reason for Visit: Appointment [186] Cmt: lvm informing patient that her infusion has been scheduled seeing as she should be scheduled for the start up dose and we have to wait for authorization to schedule Prescriptions as of 06/17/2024 - ergocalciferol 50,000 unit capsule (VITAMIN D2, DRISDOL) Take 1 capsule by mouth one time a week. - predniSONE (DELTASONE) 50 mg Take 13 tablets in the morning and 12 tablets in the mid afternoon daily for 3 days. Take with food. - famotidine (PEPCID) 20 mg tablet Take 1 tablet by mouth two times a day. - predniSONE (DELTASONE) 20 mg tablet Take 3 tablets for 4 days, then take 2 tablets for 4 days, then take 1 tablet for 4 days, then stop. Problem List As Of Date 06/17/2024 Noted Resolved Anxiety and depression [F41.9, F32.A] 01/30/2024 Multiple sclerosis (HCC) [G35] 05/26/2024 Encounter Status:Closed by RUTHIE CLEMENS on 06/17/24 [facility] 06-09-2024 [facility] -------- TYLER HO ([id number]) 1995 F Date Time Provider Department 06/09/24 MARIA TERESA EATON During your visit today, we recorded the following information about you: Val Navarro MA 06/09/2024 10:19 AM Signed === PHARMACY TEAM ==== PEER TO PEER/APPEAL REQUESTED PROVIDER TO COMPLETE P2P or Appeal: Appeal Payer: [facility] DOS: TBS Drug Name(s) AND HCPCS/CPTCode(s): J2350 Ocrevus Dx code(s) submitted: G35 MS Provider: MARIA TERESA EATON Peer to Peer/Appeal reason: Timeframe to complete: 180 days Date sent to provider: 06/09/24 Courtesy page sent (PRN): No Allergies As of Date: 06/09/2024 (No Known Allergies) Date Reviewed: 05/26/2024 Reviewed by: Maria Teresa Eaton MD - Fully Assessed Reason for Visit: Medication Authorization [0589] Cmt: Prior Auth Denied; appeal requested Prescriptions as of 06/09/2024 - ergocalciferol 50,000 unit capsule (VITAMIN D2, DRISDOL) Take 1 capsule by mouth one time a week. - predniSONE (DELTASONE) 50 mg Take 13 tablets in the morning and 12 tablets in the mid afternoon daily for 3 days. Take with food. - famotidine (PEPCID) 20 mg tablet Take 1 tablet by mouth two times a day. - predniSONE (DELTASONE) 20 mg tablet Take 3 tablets for 4 days, then take 2 tablets for 4 days, then take 1 tablet for 4 days, then stop. Problem List As Of Date 06/09/2024 Noted Resolved Anxiety and depression [F41.9, F32.A] 01/30/2024 Multiple sclerosis (HCC) [G35] 05/26/2024 Encounter Status:Closed by VAL NAVARRO on 06/09/24 Normal [facility] 25(OH)D3 SerPl-mCncon 2023 25-hydroxyvitamin D3 [Mass/Vol] 22.9 ng/mL Low 31.0-80.0 [facility] Comment on above: Order Comment: Speci men Type: BLOOD SPECIMENOrdering Facility: [facility] Address: [address] [place] [address] [place] [address] Result Comment: Clas sification of 25 [place] Vitamin D status: Deficiency/Insufficiency: < or = 30 ng/ml. Sufficiency/Optimal Levels: 31-80 ng/mL Toxicity: > 100 ng/mL. Test performed by chemiluminescent immunoassay. Performed By: #### 1 989-3 ####[facility] LABCLIA [id number] [address] BLOOD TB SCREENon 05-26-2024 M. tuberculosis tuberculin stim IFN-g Ql (Bld) Negative Normal [facility] Comment on above: Order Comment: Speci men Type: BLOOD SPECIMEN [facility] Address: [address] [place] [address] Performed By: #### I NFTBP #### [facility] CLIA [id number] [address] [place] [address] [place] MITOGEN MINUS NIL 7.18 IU/mL Normal >=0.50 [facility] Comment on above: Order Comment: Speci men Type: BLOOD SPECIMEN [facility] Address: [address] [place] [address] Performed By: #### I NFTBP #### [facility] CLIA [id number] [address] [place] [address] TB GAMMA INTERPRETATION Infection with M. tuberculosis complex is unlikely. If latent tuberculosis infection is highly suspected, a negative result does not rule out the infection. Specimens from immunocompromised patients and those <5 years of age may show false negative results. In case of a contact investigation, please repeat 8-12 weeks after a known exposure. Normal [facility] Comment on above: Order Comment: Speci men Type: BLOOD SPECIMEN [facility] Address: [address] [place] [address] Performed By: #### I NFTBP #### [facility] CLIA [id number] [address] [place] [address] TB NIL <0.00 Normal <=8.00 [facility] Comment on above: Order Comment: Speci [facility] Type: BLOOD SPECIMEN [facility] Address: [address] [place] [address] Performed By: #### I NFTBP #### [facility] CLIA [id number] [address] [place] [address] [place] TB1 AG MINUS NIL 0.16 IU/mL Normal <0.35 [facility] Comment on above: Order Comment: Speci men Type: BLOOD SPECIMEN [facility] Address: [address] [place] [address] Performed By: #### I NFTBP #### [facility] CLIA [id number] [address] [place] [address] TB2 AG MINUS NIL 0.13 IU/mL Normal <0.35 [facility] Comment on above: Order Comment: Speci men Type: BLOOD SPECIMEN [facility] Address: [address] [place] [address] Performed By: #### I NFTBP #### [facility] CLIA [id number] [address] [place] [address] [place] CBC W Auto Differential pane l (Bld)on 05-26-2024 Basophils (Bld) [#/Vol] 0.04 10*3/uL [facility] Basophils/100 WBC (Bld) 0.5 % [facility] Differential cell count method Nom (Bld) Auto [facility] Eosinophils (Bld) [#/Vol] 0.11 10*3/uL [facility] Eosinophils/100 WBC (Bld) 1.5 % [facility] Erythrocyte distribution width (RBC) [Ratio] 13.1 % 11.5 - 15.0 % [facility] Hematocrit (Bld) [Volume fraction] 40.2 % 36.0 - 46.0 % [facility] Hemoglobin (Bld) [Mass/Vol] 13.2 g/dL 11.5 - 15.5 g/dL [facility] Immature granulocytes (Bld) [#/Vol] [facility] Immature granulocytes/100 WBC (Bld) 0.3 % [facility] Lymphocytes (Bld) [#/Vol] 2.16 10*3/uL [facility] Lymphocytes/100 WBC (Bld) 29.3 % [facility] MCH (RBC) [Entitic mass] 27.6 pg 26.0 - 34.0 pg [facility] MCHC (RBC) [Mass/Vol] 32.8 g/dL 30.5 - 36.0 g/dL [facility] MCV (RBC) [Entitic vol] 83.9 fL 80.0 - 100.0 fL [facility] Monocytes (Bld) [#/Vol] 0.68 10*3/uL NINF [facility] Monocytes/100 WBC (Bld) 9.2 % [facility] Neutrophils (Bld) [#/Vol] 4.36 10*3/uL [facility] Neutrophils/100 WBC (Bld) 59.2 % [facility] Nucleated RBC (Bld) [#/Vol] NINF [facility] Nucleated RBC/100 WBC (Bld) [Ratio] 0.0 % /100 WBC [facility] Platelet mean volume (Bld) [Entitic vol] 10.3 fL 9.0 - 12.7 fL [facility] Platelets (Bld) [#/Vol] 270 10*3/uL [facility] RBC (Bld) [#/Vol] 4.79 10*6/uL 3.90 - 5.2 0 m/uL [facility] WBC (Bld) [#/Vol] 7.37 10*3/uL [facility] Basophils (Bld) [#/Vol] 0.04 10*3/uL Normal <0.11 [facility] Comment on above: Order Comment: Speci men Type: BLOOD SPECIMENOrdering Facility: [facility] Address: [address] [place] [address] Performed By: #### 5 7021-8 ####[facility] [id number] [address] [place] Basophils/100 WBC (Bld) 0.5 % Normal [facility] Comment on above: Order Comment: Speci men Type: BLOOD SPECIMENOrdering Facility: [facility] Address: [address] [place] [address] Performed By: #### 5 7021-8 ####[facility]ORYCLIA [id number] [place] [address] [place] Differential cell count method Nom (Bld) Auto Normal [facility] Comment on above: Order Comment: Speci men Type: BLOOD SPECIMENOrdering Facility: [facility] Address: [address] [place] [address] Performed By: #### 5 7021-8 ####[facility]ORYCLIA [id number] [place] [address] [place] Eosinophils (Bld) [#/Vol] 0.11 10*3/uL Normal <0.46 [facility] Comment on above: Order Comment: Speci men Type: BLOOD SPECIMENOrdering Facility: [facility] Address: [address] [place] [address] Performed By: #### 5 7021-8 ####[facility]ORYCLIA [id number] [address] Eosinophils/100 WBC (Bld) 1.5 % Normal [facility] Comment on above: Order Comment: Speci men Type: BLOOD SPECIMENOrdering Facility: [facility] Address: [address] [place] [address] Performed By: #### 5 7021-8 ####[facility] LABORATORYCLIA [id number] [address] Erythrocyte distribution width (RBC) [Ratio] 13.1 % Normal 11.5-15.0 [facility] Comment on above: Order Comment: Speci men Type: BLOOD SPECIMENOrdering Facility: [facility] Address: [address] [place] [address] Performed By: #### 5 7021-8 ####[facility]ORYCLIA [id number] [address] [place] Hematocrit (Bld) [Volume fraction] 40.2 % Normal 36.0-46.0 [facility] Comment on above: Order Comment: Speci men Type: BLOOD SPECIMENOrdering Facility: [facility] Address: [address] [place] [address] Performed By: #### 5 7021-8 ####[facility]ATORYCLIA [id number] [place] [address] [place] Hemoglobin (Bld) [Mass/Vol] 13.2 g/dL Normal 11.5-15.5 [facility] Comment on above: Order Comment: Speci men Type: BLOOD SPECIMENOrdering Facility: [facility] Address: [address] [place] [address] Performed By: #### 5 7021-8 ####[facility]ORATORYCLIA [id number] [place] [id number] [place] Immature granulocytes (Bld) [#/Vol] 10*3/uL Normal <0.10 [facility] Comment on above: Order Comment: Speci men Type: BLOOD SPECIMENOrdering Facility: [facility] Address: [address] [place] [address] Performed By: #### 5 7021-8 ####[facility]ORATORYCLIA [id number] [place] [address] [place] Immature granulocytes/100 WBC (Bld) 0.3 % Normal [facility] Comment on above: Order Comment: Speci men Type: BLOOD SPECIMENOrdering Facility: [facility] Address: [address] [place] [address] Performed By: #### 5 7021-8 ####[facility]ORATORYCLIA [id number] [place] [address] [place] Lymphocytes (Bld) [#/Vol] 2.16 10*3/uL Normal 1.00-4.00 [facility] Comment on above: Order Comment: Speci men Type: BLOOD SPECIMENOrdering Facility: [facility] Address: [address] [place] [address] Performed By: #### 5 7021-8 ####[facility] LABORATORYCLIA [id number] [place] [id number] [place] Lymphocytes/100 WBC (Bld) 29.3 % Normal [facility] Comment on above: Order Comment: Speci men Type: BLOOD SPECIMENOrdering Facility: [facility] Address: [address] [place] [address] Performed By: #### 5 7021-8 ####[facility]ORATORYCLIA [id number] [place] [address] [place] MCH (RBC) [Entitic mass] 27.6 pg Normal 26.0-34.0 [facility] Comment on above: Order Comment: Speci men Type: BLOOD SPECIMENOrdering Facility: [facility] Address: [address] [place] [address] Performed By: #### 5 7021-8 ####[facility] LABORATORYCLIA [id number] [place] [address] [place] MCHC (RBC) [Mass/Vol] 32.8 g/dL Normal 30.5-36.0 [facility] Comment on above: Order Comment: Speci men Type: BLOOD SPECIMENOrdering Facility: [facility] Address: [address] [place] [address] Performed By: #### 5 7021-8 ####[facility] LABORATORYCLIA [id number] [place] [address] [place] MCV (RBC) [Entitic vol] 83.9 fL Normal 80.0-100.0 [facility] Comment on above: Order Comment: Speci men Type: BLOOD SPECIMENOrdering Facility: [facility] Address: [address] [place] [address] Performed By: #### 5 7021-8 ####[facility] LABORATORYCLIA [id number] [address] [place] Monocytes (Bld) [#/Vol] 0.68 10*3/uL Normal <0.87 [facility] Comment on above: Order Comment: Speci men Type: BLOOD SPECIMENOrdering Facility: [facility] Address: [address] [place] [address] Performed By: #### 5 7021-8 ####[facility]ATORYCLIA [id number] [address] [place] Monocytes/100 WBC (Bld) 9.2 % Normal [facility] Comment on above: Order Comment: Speci men Type: BLOOD SPECIMENOrdering Facility: [facility] Address: [address] [place] [address] Performed By: #### 5 7021-8 ####[facility] LABORATORYCLIA [id number] [place] [address] [place] Neutrophils (Bld) [#/Vol] 4.36 10*3/uL Normal 1.45-7.50 [facility] Comment on above: Order Comment: Speci men Type: BLOOD SPECIMENOrdering Facility: [facility] Address: [address] [place] [address] Performed By: #### 5 7021-8 ####[facility] LABORATORYCLIA [id number] [place] [address] [place] Neutrophils/100 WBC (Bld) 59.2 % Normal [facility] Comment on above: Order Comment: Speci men Type: BLOOD SPECIMENOrdering Facility: [facility] Address: [address] [place] [address] Performed By: #### 5 7021-8 ####[facility] LABORATORYCLIA [id number] [place] [address] [place] Nucleated RBC (Bld) [#/Vol] 10*3/uL Normal <0.01 [facility] Comment on above: Order Comment: Speci men Type: BLOOD SPECIMENOrdering Facility: [facility] Address: [address] [place] [address] Performed By: #### 5 7021-8 ####[facility] LABORATORYCLIA [id number] [place] [address] [place] Nucleated RBC/100 WBC (Bld) [Ratio] 0.0 /100 WBC Normal [facility] Comment on above: Order Comment: Speci men Type: BLOOD SPECIMENOrdering Facility: [facility] Address: [address] [place] [address] Performed By: #### 5 7021-8 ####[facility] LABORATORYCLIA [id number] [place] [address] [place] Platelet mean volume (Bld) [Entitic vol] 10.3 fL Normal 9.0-12.7 [facility] Comment on above: Order Comment: Speci men Type: BLOOD SPECIMENOrdering Facility: [facility] Address: [address] [place] [address] Performed By: #### 5 7021-8 ####[facility] LABORATORYCLIA [id number] [place] [id number] [facility] [place] Platelets (Bld) [#/Vol] 270 10*3/uL Normal 150-400 [facility] Comment on above: Order Comment: Speci men Type: BLOOD SPECIMENOrdering Facility: [facility] Address: [address] [place] [address] Performed By: #### 5 7021-8 ####[facility] LABORATORYCLIA [id number] [place] [id number] [place] RBC (Bld) [#/Vol] 4.79 10*6/uL Normal 3.90-5.20 [facility] Comment on above: Order Comment: Speci men Type: BLOOD SPECIMENOrdering Facility: [facility] Address: [address] [place] [address] Performed By: #### 5 7021-8 ####[facility] LABORATORYCLIA [id number] [place] [id number] [facility] [place] WBC (Bld) [#/Vol] 7.37 10*3/uL Normal 3.70-11.00 [facility] Comment on above: Order Comment: Speci men Type: BLOOD SPECIMENOrdering Facility: [facility] Address: [address] [place] [address] Performed By: #### 5 7021-8 ####[facility] LABORATORYCLIA [id number] [place] [id number] [facility] CNOVon 05-26-2024 CNOV Office Visit (NEMEFV ) -------- TYLER HO ([id number]) 1995 F Date Time Provider Department 05/26/24 8:00 AM MARIA TERESA EATON NEMEFV During your visit today, we recorded the following information about you: Pulse Blood pressure Weight Height 61/minute 126/81 85.7 kg 1.778 m Maria Teresa Eaton MD 05/26/2024 9:12 AM Signed [facility] NEW EVALUATION Referral source: Vinod Gray [id number] [facility] [address] PRINCIPAL NEUROLOGIC DIAGNOSIS: Multiple sclerosis DISEASE HISTORY Onset: ~ 2020 Diagnosis of MS: MAY 2024 Disease course at onset: relapsing-remitting Current disease course: relapsing-remitting Prior disease therapy: none Current disease therapy: none. Date started: NA Last MRI brain: 30 APR 2024 Last MRI cervical spine: 30 APR 2024 HISTORY OF ILLNESS: Consultation on/Evaluation of this 28 year old right-handed woman was requested regarding management of MS. The patient was unaccompanied. Previous records (physician notes, laboratory reports, and radiology reports) and imaging studies were reviewed and summarized. My findings and recommendations will be communicated back to the patient's physician(s) either via the shared medical record or mail. Follow-up is expected to be with me at the [facility]. Ms. Ho began to notice some numbness starting around 2020. This was primarily in her left leg/foot. Over the years, this has spread, but it has always been worse on her left. Now it is worse in the hands than in the feet (though it was previously worse on the left). At the beginning of 2023, Ms. Ho noticed that when she moved her eyes, they felt jittery. She also felt a bit nauseated. Ms. Ho notes that in March she noticed she couldn't use her left hand properly. She couldn't type and she couldn't manipulate her fingers well. She saw orthopedics and was referred to Dr. Gray. After a month, the fingers were still numb but she is now better able to control it. Dr. Gray obtained an MRI, which raised suspicion for multiple sclerosis. She has not been treated with steroids. The hand numbness is worse than her baseline. She doesn't think it has ever been this consistently bad before. At times, she has felt some weakness in her legs. Exercise tends to make things worse. She has not clearly noticed that there is worsening with heat exposure. Ms. Ho also admits to some cognitive difficulties. She has trouble remembering things at times. Prior to the above, she denies any history of episodic neurologic impairment that might be consistent with [employer] demyelination, such as unilateral visual loss, focal weakness/numbness, slurred speech or facial droop. PAST HISTORY: PAST MEDICAL HISTORY Diagnosis Date Multiple sclerosis (HCC) PAST SURGICAL HISTORY Procedure Laterality Date PAST SURGICAL HISTORY OF Intrauterine septum resection TONSILLECTOMY AND ADENOIDECTOMY Transfusions: None No current outpatient medications on file. No current facility-administered medications for this visit. Social History Tobacco Use Smoking status: Never Smokeless tobacco: Never Vaping Use Vaping status: Never Used Substance Use Topics Alcohol use: Yes Alcohol/week: 4.0 standard drinks of alcohol Types: 4 Standard drinks or equivalent per week Comment: every other day 1 drink Drug use: Never FAMILY HISTORY Problem Relation Age of Onset No Known Problems Mother No Known Problems Father Anesthesia Problems No Family History Multiple Sclerosis No Family History REVIEW OF SYSTEMS: Comprehensive review of systems otherwise was negative, including constitutional, head and neck, cardiovascular, pulmonary, gastrointestinal, endocrine, urologic, reproductive, rheumatic, hematologic, immunologic, dermatologic, and psychiatric. Nutritional concerns: None Driving issues: None Concerns regarding living situation and safety at home: None Risk of falls: None Pain: None PHYSICAL EXAM: 05/26/24 0753 BP: 126/81 Pulse: 61 SpO2: 100% Weight: 85.7 kg (188 lb 15 oz) Height: 177.8 cm (5' 10") Hair, skin, nails, and joints were normal. Neck was supple without Lhermitte's phenomenon. There was no percussion tenderness over the spine. Carotids were 2+ without bruits. Thyroid was normal. The patient was alert and oriented to person, place, and time with normal language, attention and concentration, recent and remote memory, praxis, and intellectual function. Affect was normal. The patient did not appear depressed. Visual acuity to near card was as follows: OD= 20/20 (with glasses) OS= 20/20 (with glasses). Visual hdz were full to confrontation. Pupils were 6 mm and briskly reactive OU without a relative afferent pupillary defect. Funduscopic examination was normal without disc edema, erythema, or atrophy. Ocular ductions (more content not included)... Normal [facility] [employer] DEMYELINATING DISEASE Nelson SEVILLA 05-26-2024 [employer] DEMYELINATING DISEASE INTERP, S SEE NOTE Normal [facility] Comment on above: Order Comment: Elisa wiggins Type: BLOOD SPECIMENOrdering Facility: [facility] Address: [address] [place] [address] Result Comment: No i nformative autoantibodies were detected in this evaluation. A negative result does not preclude a diagnosis of an inflammatory [employer] demyelinating disorder. Performed By: #### C DS1SE ####[facility] REFERENCE LABCLIA [id number] [place] [id number] MYELIN OLIGODENDROCYTE GLYCOPROTEIN (MOG-IGG1) FLUORESCENCE-ACTIVATE D CELL Negative Normal Negative [facility] Comment on above: Order Comment: Elisa wiggins Type: BLOOD SPECIMENOrdering Facility: [facility] Address: [address] [place] [address] Result Comment: ADDITIONAL INFORMATION This test was developed and its performance characteristics determined by [facility] in a manner consistent with CLIA requirements. This test has not been cleared or approved by the U.S. Food and Drug Administration. Test Performed by: [place] [id number] Plaster Mold Maker: Lorne Laura Ph.D.; CLIA# [id number] Performed By: #### C DS1SE ####[facility] REFERENCE LABCLIA [id number] [place] [address] NMO/AQPF FACS, S Negative Normal Negative [facility] Comment on above: Order Comment: Elisa wiggins Type: BLOOD SPECIMENOrdering Facility: [facility] Address: [address] [place] [address] Result Comment: ADDITIONAL INFORMATION This test was developed and its performance characteristics determined by [facility] in a manner consistent with CLIA requirements. This test has not been cleared or approved by the U.S. Food and Drug Administration. Performed By: #### C DS1SE ####[facility] REFERENCE LABCLIA [id number] [place] [address] Comprehensive metabolic 2000 panelon 05-26-2024 Albumin [Mass/Vol] 4.5 g/dL 3.9 - 4.9 g/dL [facility] ALP [Catalytic activity/Vol] 46 U/L 34 - 123 U/L [facility] ALT [Catalytic activity/Vol] 7 U/L 7 - 38 U/L [facility] Anion gap [Moles/Vol] 9 mmol/L 8 - 15 mmol/L [facility] AST [Catalytic activity/Vol] 12 U/L Low 13 - 35 U/L [facility] Bilirubin [Mass/Vol] 0.9 mg/dL 0.2 - 1 .3 mg/dL [facility] Calcium [Mass/Vol] 9.6 mg/dL 8.5 - 10. 2 mg/dL [facility] Chloride [Moles/Vol] 107 mmol/L 98 - 10 7 mmol/L [facility] CO2 [Moles/Vol] 25 mmol/L 22 - 30 mmol/L [facility] Creatinine [Mass/Vol] 0.74 mg/dL 0.58 - 0.96 mg/dL [facility] GFR/1.73 sq M.predicted among non-blacks MDRD (S/P/Bld) [Vol rate/Area] 112 mL/min/{1.73_m2} - PINF [facility] Comment on above: Estimated Glomerular Filtration Rate (eGFR) is calculated using the 2020 CKD-EPI creatinine equation. This equation utilizes serum creatinine, sex, and age as parameters. The creatinine assay has traceable calibration to isotope dilution-mass spectrometry. Refer to KDIGO guidelines for clinical interpretation. In patients with unstable renal function, e.g. those with acute kidney injury, the eGFR may not accurately reflect actual GFR. Glucose [Mass/Vol] 100 mg/dL High 74 - 99 mg/dL [facility] Comment on above: The [place] Diabete s Association (ADA) provides guidance for cutoff values for fasting glucose and random glucose. The ADA defines fasting as no caloric intake for at least 8 hours. Fasting plasma glucose results between 100 to 125 mg/dL indicate increased risk for diabetes (prediabetes). Fasting plasma glucose results greater than or equal to 126 mg/dL meet the criteria for diagnosis of diabetes. In the absence of unequivocal hyperglycemia, results should be confirmed by repeat testing. In a patient with classic symptoms of hyperglycemia or hyperglycemic crisis, random plasma glucose results greater than or equal to 200 mg/dL meet the criteria for diagnosis of diabetes. Reference: Standards of Medical Care in Diabetes 2016, [place] Diabetes Association. Diabetes Care. 2016.39(Suppl 1). Interpretation and review of laboratory results Abnormal [facility] Potassium [Moles/Vol] 4.3 mmol/L 3.7 - 5.1 mmol/L [facility] Protein [Mass/Vol] 7.4 g/dL 6.3 - 8.0 g/dL [facility] Sodium [Moles/Vol] 141 mmol/L 136 - 144 mmol/L [facility] Urea nitrogen [Mass/Vol] 11 mg/dL 7 - 21 mg/dL [facility] Albumin [Mass/Vol] 4.5 g/dL Normal 3.9-4.9 [facility] Comment on above: Order Comment: Elisa wiggins Type: BLOOD SPECIMENOrdering Facility: [facility] Address: [address] [place] [address] Performed By: #### 2 4323-8 ####[facility] LABORATORYCLIA [id number] [place] [address] [place] ALP [Catalytic activity/Vol] 46 U/L Normal 34-123 [facility] Comment on above: Order Comment: Elisa wiggins Type: BLOOD SPECIMENOrdering Facility: [facility] Address: [address] [place] [address] Performed By: #### 2 4323-8 ####[facility] LABORATORYCLIA [id number] [place] [id number] [place] ALT [Catalytic activity/Vol] 7 U/L Normal 7-38 [facility] Comment on above: Order Comment: Elisa wiggins Type: BLOOD SPECIMENOrdering Facility: [facility] Address: [address] [place] [address] Performed By: #### 2 4323-8 ####[facility] LABORATORYCLIA [id number] [place] [id number] [place] Anion gap [Moles/Vol] 9 mmol/L Normal 8-15 [facility] Comment on above: Order Comment: Speci men Type: BLOOD SPECIMENOrdering Facility: [facility] Address: [address] [place] [address] Performed By: #### 2 4323-8 ####[facility] LABORATORYCLIA [id number] [place] [id number] [place] AST [Catalytic activity/Vol] 12 U/L Low 13-35 [facility] Comment on above: Order Comment: Speci men Type: BLOOD SPECIMENOrdering Facility: [facility] Address: [address] [place] [address] Performed By: #### 2 4323-8 ####[facility] LABORATORYCLIA [id number] [place] [address] [place] Bilirubin [Mass/Vol] 0.9 mg/dL Normal 0.2-1.3 [facility] Comment on above: Order Comment: Speci men Type: BLOOD SPECIMENOrdering Facility: [facility] Address: [address] [place] [address] Performed By: #### 2 4323-8 ####[facility] LABORATORYCLIA [id number] [place] [address] [place] Calcium [Mass/Vol] 9.6 mg/dL Normal 8.5-10.2 [facility] Comment on above: Order Comment: Speci men Type: BLOOD SPECIMENOrdering Facility: [facility] Address: [address] [place] [address] Performed By: #### 2 4323-8 ####[facility] LABORATORYCLIA [id number] [place] [address] [place] Chloride [Moles/Vol] 107 mmol/L Normal 98-107 [facility] Comment on above: Order Comment: Speci men Type: BLOOD SPECIMENOrdering Facility: [facility] Address: [address] [place] [address] Performed By: #### 2 4323-8 ####[facility] LABORATORYCLIA [id number] [place] [id number] [place] CO2 [Moles/Vol] 25 mmol/L Normal 22-30 [facility] Comment on above: Order Comment: Elisa wiggins Type: BLOOD SPECIMENOrdering Facility: [facility] Address: [address] [place] [address] Performed By: #### 2 4323-8 ####[facility] LABORATORYCLIA [id number] [place] [id number] [place] Creatinine [Mass/Vol] 0.74 mg/dL Normal 0.58-0.96 [facility] Comment on above: Order Comment: Theongozi men Type: BLOOD SPECIMENOrdering Facility: [facility] Address: [address] [place] [address] Performed By: #### 2 4323-8 ####[facility] LABORATORYCLIA [id number] [address] Creatinine and Glomerular filtration rate.predicted panel (S/P/Bld) 112 mL/min/1.73m??? Normal >=60 [facility] Comment on above: Order Comment: Theongozi wiggins Type: BLOOD SPECIMENOrdering Facility: [facility] Address: [address] [place] [address] Result Comment: Umberto mated Glomerular Filtration Rate (eGFR) is calculated using the 2020 CKD-EPI creatinine equation. This equation utilizes serum creatinine, sex, and age as parameters. The creatinine assay has traceable calibration to isotope dilution-mass spectrometry. Refer to KDIGO guidelines for clinical interpretation. In patients with unstable renal function, e.g. those with acute kidney injury, the eGFR may not accurately reflect actual GFR. Performed By: #### 2 4323-8 ####[facility] LABORATORYCLIA [id number] [place] [id number] [place] Glucose [Mass/Vol] 100 mg/dL High 74-99 [facility] Comment on above: Order Comment: Elisa wiggnis Type: BLOOD SPECIMENOrdering Facility: [facility] Address: [address] [place] [address] Result Comment: The [place] Diabetes Association (ADA) provides guidance for cutoff values for fasting glucose and random glucose. The ADA defines fasting as no caloric intake for at least 8 hours. Fasting plasma glucose results between 100 to 125 mg/dL indicate increased risk for diabetes (prediabetes). Fasting plasma glucose results greater than or equal to 126 mg/dL meet the criteria for diagnosis of diabetes. In the absence of unequivocal hyperglycemia, results should be confirmed by repeat testing. In a patient with classic symptoms of hyperglycemia or hyperglycemic crisis, random plasma glucose results greater than or equal to 200 mg/dL meet the criteria for diagnosis of diabetes. Reference: Standards of Medical Care in Diabetes 2016, [place] Diabetes Association. Diabetes Care. 2016.39(Suppl 1). Performed By: #### 2 4323-8 ####[facility] LABORATORYCLIA [id number] [place] [id number] [place] Potassium [Moles/Vol] 4.3 mmol/L Normal 3.7-5.1 [facility] Comment on above: Order Comment: Elisa wiggins Type: BLOOD SPECIMENOrdering Facility: [facility] Address: [address] [place] [address] Performed By: #### 2 4323-8 ####[facility] LABORATORYCLIA [id number] [place] [id number] [place] Protein [Mass/Vol] 7.4 g/dL Normal 6.3-8.0 [facility] Comment on above: Order Comment: Theoi men Type: BLOOD SPECIMENOrdering Facility: [facility] Address: [address] [place] [address] Performed By: #### 2 4323-8 ####[facility] LABORATORYCLIA [id number] [place] [id number] [place] Sodium [Moles/Vol] 141 mmol/L Normal 136-144 [facility] Comment on above: Order Comment: Speci men Type: BLOOD SPECIMENOrdering Facility: [facility] Address: [address] [place] [address] Performed By: #### 2 4323-8 ####[facility] LABORATORYCLIA [id number] [place] [id number] [place] Urea nitrogen [Mass/Vol] 11 mg/dL Normal 7-21 [facility] Comment on above: Order Comment: Speci men Type: BLOOD SPECIMENOrdering Facility: [facility] Address: [address] [place] [address] Performed By: #### 2 4323-8 ####[facility] LABORATORYCLIA [id number] [place] [address] [place] HBV core Ab Ser Qlon 024 HBV core Ab Ql (S) Negative Normal Negative [facility] Comment on above: Order Comment: Speci men Type: BLOOD SPECIMENOrdering Facility: [facility] Address: [address] [place] [address] Result Comment: No e vidence of current or past infection with Hepatitis B virus. Should recent infection be suspected, repeat testing may be considered 3-4 weeks after this draw. Performed By: #### 1 6933-4, 75596-6 ####[facility] LABCLIA [id number] [address] [place] HBV surface Ab Ql (S)on HBV surface Ab Qn (S) 190.36 mIU/mL Normal [facility] Comment on above: Order Comment: Speci men Type: BLOOD SPECIMENOrdering Facility: [facility] Address: [address] [place] [address] Result Comment: <8 m IU/mL: No serological evidence of immunity to Hepatitis B Virus. >/= 8 to <12 mIU/mL: No serological evidence of immunity to Hepatitis B Virus. >/= 12 mIU/mL: Consistent with serological evidence of immunity to Hepatitis B Virus. Performed By: #### 1 6933-4, 51243-2 ####[facility] LABCLIA [id number] [place] [address] [place] HBV surface Ab Ser Qlon HBV surface Ab Ql (S) Positive Normal [facility] Comment on above: Order Comment: Speci men Type: BLOOD SPECIMENOrdering Facility: [facility] Address: [address] [place] [address] Result Comment: Cons istent with serological evidence of immunity to Hepatitis B Virus. Performed By: #### 1 6933-4, 93463-2 ####[facility] LABCLIA [id number] [place] [address] [place] HBV surface Ag Ser Qlon HBV surface Ag Ql (S) Negative Normal Negative [facility] Comment on above: Order Comment: Speci men Type: BLOOD SPECIMENOrdering Facility: [facility] Address: [address] [place] [address] Performed By: #### 5 195-3 ####[facility] LABORATORYCLIA [id number] [place] [address] [place] HCV Ab Ser Qlon 05-26-2024 HCV Ab Ql (S) Negative Normal Negative [facility] Comment on above: Order Comment: Speci men Type: BLOOD SPECIMENOrdering Facility: [facility] Address: [address] [place] [address] Result Comment: The result suggests no evidence of active infection with Hepatitis C virus. Should recent infection be suspected, repeat testing may be considered 4-6 weeks after this draw. Performed By: #### 1 6128-1 ####[facility] LABCLIA [id number] [place] [address] [place] IgG SerPl-mCncon 05-26-2024 IgG [Mass/Vol] 1225 mg/dL Normal 700-1600 [facility] Comment on above: Order Comment: Speci men Type: BLOOD SPECIMENOrdering Facility: [facility] Address: [address] [place] [address] Performed By: #### 2 472-9, 2465-3 ####[facility] LABCLIA [id number] [place] [address] [place] IgM SerPl-mCncon 05-26-2024 IgM [Mass/Vol] 199 mg/dL Normal 40-230 [facility] Comment on above: Order Comment: Speci men Type: BLOOD SPECIMENOrdering Facility: [facility] Address: [address] [place] [address] Performed By: #### 2 472-9, 2465-3 ####[facility] LABCLIA [id number] [id number] [id number] [place] JCV ANTIBODY AND INDEX WITH REFLEXon 05-26-2024 JCV ANTIBODY Positive Abnormal [facility] Comment on above: Order Comment: Elisa wiggins Type: BLOOD SPECIMENOrdering Facility: [facility] Address: [address] [place] [address] Result Comment: Index interpretive criteria: <0.20 negative 0.20-0.40 indeterminate >0.40 positive INTERPRETATION Negative: Antibodies to JCV not detected. Indeterminate: Low level reactivity detected, see Inhibition Assay result below for the final antibody result. Positive: Antibodies to HEATH virus (JCV) detected indicating the patient has been exposed to JCV at an undetermined time. The STRATIFY JCV Antibody Test is an enzyme-linked immunosorbent assay (CHANTEL) designed to detect JCV antibodies to help identify individuals who have been exposed to the virus. Samples with low level reactivity in the detection assay are retested in a confirmation (inhibition) assay to confirm presence or absence of JCV-specific antibodies. Retrospective analyses of post marketing data from various sources, including observational studies and spontaneous reports obtained worldwide, suggest that the risk of developing PML may be associated with relative levels of serum anti-JCV antibody as measured by anti-JCV antibody index.1 1TYSABRI(natalizumab)US Prescribing Information TEST PERFORMED AT: [id number] [facility] [address] [place] [address] Humanities Teacher: Ngozi Pryor MD, PhD Performed By: #### J CVIDX ####[facility] [id number] [place] [id number] JCV INDEX VALUE 2.33 High [facility] Comment on above: Order Comment: Elisa wiggins Type: BLOOD SPECIMENOrdering Facility: [facility] Address: [address] [place] [address] Performed By: #### J CVIDX ####[facility] [id number] [place] [id number] [facility] 05-21-2024 CNPN Telephone ([facility]) -------- TYLER HO ([id number]) 1995 F Date Time Provider Department 05/21/24 MARIA TERESA EATON RENE During your visit today, we recorded the following information about you: Sherrill Rosales LPN 05/21/2024 2:14 PM Signed [facility] NEW PATIENT REFERRAL TRIAGE Referral source:internal referral referring provider defined for this encounter.Isaac Mullins MD Referral Reason: for a second opinion on neurological symptoms Care Everywhere Completed Connection: [x]Yes or []No Date Requested: 05/21/24 Method of Request: Called in Request [x] or Faxed Request [] [employer] Account?: [x]Yes or []No Sherrill Rosales LPN Allergies As of Date: 05/21/2024 (No Known Allergies) Date Reviewed: 05/14/2024 Reviewed by: Vinod Gray MD - Fully Assessed Reason for Visit: 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 - ibuprofen (MOTRIN) 200 mg tablet Take 3 tablets by mouth every 6 hours as needed for pain. Take with food. Problem List As Of Date 05/21/2024 Noted Resolved Anxiety and depression [F41.9, F32.A] 01/30/2024 Encounter Status:Closed by SHERRILL ROSALES on 05/22/24 [place] [facility] 05-14-2024 CNOV Office Visit ([facility] ) -------- TYLER HO ([id number]) 1995 F Date Time Provider Department 05/14/24 3:20 PM VINOD GRAYFV During your visit today, we recorded the following information about you: Temperature Pulse Blood pressure Weight 97.8 degrees 71/minute 130/79 84.6 kg Height 1.803 m Vinod Gray MD 05/14/2024 5:55 PM Signed She is seen in follow-up today because of somatosensory symptoms as well as weakness/clumsiness of the left hand/fingers. There has been significant improvement in the left hand symptomatology. The results of the magnetic resonance imaging of the brain and cervical spine demonstrated numerous T2 hyperintense lesions throughout the bilateral supratentorial and left infratentorial brain as well as multifocally throughout the cervical spinal cord. Many of these lesions demonstrated abnormal postcontrast enhancement. The initial laboratory studies that we had requested together with subsequent further studies were unremarkable save for a low but still normal vitamin B12 level. Today on examination she is awake, alert, pleasant, cooperative and coherent. Her stance is minimally wide-based and the gait is similarly ataxic. There is at least borderline rombergism. The rapid alternating movements of the fingers are well-preserved save for a minimal to mild decrement on the left. Opmuxw-ei-vilo testing is today performed well bilaterally. Cranial Nerves: II-visual hdz full III IV -extraocular movements normal VII-muscles of facial expression normal in power bilaterally Motor System: Strength in the deltoids, biceps, triceps, wrist extensors, finger extensors, interossei, iliopsoas, quadriceps, hamstrings, anterior tibialis and toe extensors is well-preserved. There is no significant tendon reflex asymmetry and no definite Babinski response. In summary, there has been significant improvement. 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 After further consideration we will refer her to one of our colleagues who specializes in these entities. Follow-up will be on an as-needed basis. Allergies As of Date: 05/14/2024 (No Known Allergies) Date Reviewed: 05/14/2024 Reviewed by: Vinod Gray MD - Fully Assessed Reason for Visit: Established Patient [175] Limb Weakness [230] Primary Visit Diagnosis:Left hand weakness [R29.898] Other Visit Diagnosis:Low vitamin B12 level [R79.89] Order(s):METHYLMALONIC ACID [SQMMA] Order #: [id number] FUTURE CONSULT TO NEUROLOGY [4786] Order #: [id number]: 1 FUTURE Prescriptions as of 05/14/2024 - acetaminophen (TYLENOL EXTRA STRENGTH) 500 mg tablet Take 2 tablets by mouth every 8 hours as needed for pain. - ibuprofen (MOTRIN) 200 mg tablet Take 3 tablets by mouth every 6 hours as needed for pain. Take with food. Problem List As Of Date 05/14/2024 Noted Resolved Anxiety and depression [F41.9, F32.A] 01/30/2024 Disposition: Return if symptoms worsen or fail to improve. Follow-up and Disposition History for Encounter Date Provider Department Center 05/14/2024 [id number], PETER [facility] Encounter Status:Closed by VINOD GRAY on 05/14/24 Normal [facility] Methylmalonate SerPl-sCncon 05-14-2024 Methylmalonate [Moles/Vol] 0.10 umol/L Normal <=0.40 [facility] Comment on above: Order Comment: Elisa wiggins Type: BLOOD SPECIMENOrdering Facility: [facility] Address: [address] [place] [address] Result Comment: This test was developed, and its performance characteristics determined by the [facility] Department of Pathology and Laboratory Medicine. It has not been cleared or approved by the FDA. The [facility] Department of Pathology and Laboratory Medicine is regulated under CLIA as qualified to perform high-complexity testing. This test is used for clinical purposes. It should not be regarded as investigational or for research. Performed By: #### 1 3964-2 ####[facility] [id number] [place] [address] [place] PINKY SerPl-cCncon 05-07-2024 Angiotensin converting enzyme [Catalytic activity/Vol] 37 U/L Normal <=52 [facility] Comment on above: Order Comment: Elisa wiggins Type: BLOOD SPECIMENOrdering Facility: [facility] Address: [address] [place] [address] Result Comment: Rachel ficially low PINKY levels may be found for patients taking PINKY inhibitors or after the administration of gadolinium. This test was developed, and its performance characteristics determined by the [facility] Department of Pathology and Laboratory Medicine. It has not been cleared or approved by the FDA. The [facility] Department of Pathology and Laboratory Medicine is regulated under CLIA as qualified to perform high-complexity testing. This test is used for clinical purposes. It should not be regarded as investigational or for research. Performed By: #### 2 742-5 ####[facility] [id number] [place] [address] [place] B. burgdorferi IgG and IgM p arely (S)on 05-07-2024 B. burgdorferi IgG+IgM Qn (S) Negative Normal Negative [facility] Comment on above: Order Comment: Elisa wiggins Type: BLOOD SPECIMEN [facility] Address: [address] [place] [address] Result Comment: Rece nt infection with B. burgdorferi sensu lato cannot be excluded if the specimen collected within four weeks after the onset of signs and symptoms or within six weeks after a known tick exposure. Clinical and epidemiological correlation is required. Performed By: #### 3 4942-3 #### [facility] CLIA [id number] [address] [place] [address] [place] CRP SerPl-mCncon 05-07-2024 CRP [Mass/Vol] mg/L Normal <0.9 [facility] Comment on above: Order Comment: Elisa wiggins Type: BLOOD SPECIMENOrdering Facility: [facility] Address: [address] [place] [address] Performed By: #### 1 988-5, 49461-5 ####[facility] [id number] [place] [address] [place] ESR Westergren method (Bld) [Velocity]on 05-07-2024 ESR (Bld) [Velocity] 8 mm/h Normal 0-20 [facility] Comment on above: Order Comment: Speci men Type: BLOOD SPECIMENOrdering Facility: [facility] Address: [address] [place] [address] Performed By: #### 4 537-7 ####[facility] [id number] [place] [address] [place] Nuclear Ab IA Ql (S)on 05-07 KENISHA SCR QUAL Negative Normal Negative [facility] Comment on above: Order Comment: Speci men Type: BLOOD SPECIMENOrdering Facility: [facility] Address: [address] [place] [address] Result Comment: The qualitative antinuclear antibody screen test performed using the following antigens: dsDNA, Chromatin, Ribosomal P, SS-A 60, SS-A 52, SS-B, Sm, SmRNP, SLAT BASKET TOP MAKER A, SLAT BASKET TOP MAKER 68, Scl-70, Yue-1, and Centromere B. Methodology: Multiplex flow immunoassay. Performed By: #### 4 7383-5 ####[facility] [id number] [place] [address] [place] Rheumatoid fact SerPl-aCncon 05-07-2024 Rheumatoid factor Qn 12 [IU]/mL Normal <16 [facility] Comment on above: Order Comment: Speci rosalie Type: BLOOD SPECIMENOrdering Facility: [facility] Address: [address] [place] [address] Performed By: #### 1 988-5, 34835-5 ####[facility] [id number] [place] [address] [place] CNPMary Beth 05-01-2024 CNPN Telephone ([facility]) -------- TYLER HO ([id number]) 1995 F Date Time Provider Department 05/01/24 VINOD GRAY During your visit today, we recorded the following information about you: Bettye Owens 05/01/2024 11:13 AM Signed Patient called with concerns about her recent brain MRI results. Per patient, the report on MyChart indicated numerous lesions. She is concerned. Please contact patient at [phone]. Gemma Asif RN 05/01/2024 1:27 PM Signed MRI CERVICAL SPINE WO/W IVCON (Order #[id number]) on 04/30/2024 - Order Result History Report MRI BRAIN WO/W IVCON (Order #[id number]) on 04/30/2024 - Order Result History Report See below message and advise. Vinod Gray MD 05/01/2024 7:38 PM Signed Returned telephone call to patient to discuss results of MRI brain and cervical spine including differential diagnosis. Have ordered additional laboratory studies. 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] Order(s):SEDIMENTATION RATE, WESTERGREN [SQWSR] Order #: [id number] FUTURE C-REACTIVE PROTEIN [SQCRP] Order #: [id number] FUTURE RHEUMATOID FACTOR [SQRF] Order #: [id number] FUTURE KENISHA PANEL BLOOD SCRN [SQANA1] Order #: [id number] FUTURE SJOGREN ABS SSA/SSB [SQXSSAB] Order #: [id number] FUTURE DNA AB DS + CONF BLD [SQDNA] Order #: [id number] FUTURE PINKY/ANGIOTENSIN BLD [SQACE] Order #: [id number] FUTURE LYME AB LATE >30 DAYS SYMPTOMS [SQLMLATE] Order #: [id number] FUTURE Prescriptions as of 05/04/2024 - acetaminophen (TYLENOL EXTRA STRENGTH) 500 mg tablet Take 2 tablets by mouth every 8 hours as needed for pain. - ibuprofen (MOTRIN) 200 mg tablet Take 3 tablets by mouth every 6 hours as needed for pain. Take with food. Problem List As Of Date 05/01/2024 Noted Resolved Anxiety and depression [F41.9, F32.A] 01/30/2024 Encounter Status:Closed by GEMMA ASIF on 05/04/24 Normal [facility] COPPER BLOODon 04-30-2024 Copper [Mass/Vol] 90 ug/dL Normal 80-155 [facility] Comment on above: Order Comment: Speci rosalie Type: BLOOD SPECIMENOrdering Facility: [facility] Address: [address] [place] [address] Result Comment: This test was developed, and its performance characteristics determined by the [facility] Department of Pathology and Laboratory Medicine. It has not been cleared or approved by the FDA. The [facility] Department of Pathology and Laboratory Medicine is regulated under CLIA as qualified to perform high-complexity testing. This test is used for clinical purposes. It should not be regarded as investigational or for research. Performed By: #### C OPPER ####[facility] [id number] [place] [id number] [place] Folate SerPl-mCncon 04-30-20 24 Folate [Mass/Vol] 15.4 ng/mL Normal >4.7 [facility] Comment on above: Order Comment: Elisa wiggins Type: BLOOD SPECIMENOrdering Facility: [facility] Address: [address] [place] [address] Performed By: #### 3 016-3, 2132-9, 2885-2, 2284-8 ####[facility]IA [id number] [place] [id number] [place] MR Brain WO and W contrast I Von 04-30-2024 * * *Final Report* * * DATE OF EXAM: Apr 30 2024 3:38PM [facility] 0295 - MRI BRAIN WO/W IVCON / PROCEDURE REASON: multiple diagnoses * * * * Physician Interpretation * * * * EXAMINATION: MRI BRAIN WO/W IVCON, MRI CERVICAL SPINE WO/W IVCON CLINICAL HISTORY: Numbness and tingling TECHNIQUE: Routine brain and cervical spine MRI protocol without and with contrast including intracranial diffusion weighted sequence. Contrast: 16 mL Dotarem IV COMPARISON: None. RESULT: Brain: Acute Change: No evidence of acute infarct. Hemorrhage: No evidence of space-occupying intracranial hemorrhage. Mass Lesion/ Mass Effect: No mass effect identified. White matter and enhancement: Numerous irregular T2 FLAIR hyperintense lesions are present multifocally throughout the bilateral cerebral hemispheric white matter including periventricular, subcortical, and juxtacortical locations, as well as the left lateral jony and adjacent left middle cerebellar peduncle. Several lesions demonstrate associated postcontrast enhancement, with the most avidly enhancing lesion located in the juxtacortical white matter of the left superior frontal gyrus demonstrating an incomplete rim of enhancement. Parenchyma: No significant volume loss for age. Ventricles: Normal caliber and morphology. Skull Base: Hypothalamic and pituitary region are grossly normal. Craniocervical junction is normal. No significant marrow replacement process. Vasculature: Major intracranial arterial structures, and dural venous sinuses show typical flow void, suggesting patency by spin echo criteria. Other: The visualized paranasal sinuses and mastoid air cells are clear. The orbits and extracranial soft tissues are unremarkable. Cervical spine: Counting reference: Craniocervical junction. Anatomic Variants: None. Localizer images: No additional findings. Alignment: Alignment is anatomic. Craniocervical junction: Craniocervical junction is normal. Spinal Cord: Multiple abnormal T2 STIR hyperintense lesions are present throughout the cervical spinal cord, with the largest lesions present at the level of C1 within the left dorsolateral cord, within the left hemicord at the level of C3, the posterior central cord at the level of C4, the right lateral cord at the level of the C4-C5 disc space, and the right dorsolateral cord at the level of C6-C7. Many of these lesions demonstrate abnormal postcontrast enhancement, with the most avidly enhancing intramedullary lesion in the left lateral aspect of the spinal cord at the level of C3. Bone marrow signal/fracture: No evidence of pathologic marrow infiltration. No evidence of prior fracture. Cervical soft tissues: The paraspinal soft tissues are within normal limits. Canal and foramina: Mild multilevel degenerative changes without substantial canal or foraminal stenosis. DIVISION OF RADIOLOGY Provider, [facility] - 04/30/2024 * * *Final Report* * * DATE OF EXAM: Apr 30 2024 3:38PM [facility] 0295 - MRI BRAIN WO/W IVCON / PROCEDURE REASON: multiple diagnoses * * * * Physician Interpretation * * * * EXAMINATION: MRI BRAIN WO/W IVCON, MRI CERVICAL SPINE WO/W IVCON CLINICAL HISTORY: Numbness and tingling TECHNIQUE: Routine brain and cervical spine MRI protocol without and with contrast including intracranial diffusion weighted sequence. Contrast: 16 mL Dotarem IV COMPARISON: None. RESULT: Brain: Acute Change: No evidence of acute infarct. Hemorrhage: No evidence of space-occupying intracranial hemorrhage. Mass Lesion/ Mass Effect: No mass effect identified. White matter and enhancement: Numerous irregular T2 FLAIR hyperintense lesions are present multifocally throughout the bilateral cerebral hemispheric white matter including periventricular, subcortical, and juxtacortical locations, as well as the left lateral jony and adjacent left middle cerebellar peduncle. Several lesions demonstrate associated postcontrast enhancement, with the most avidly enhancing lesion located in the juxtacortical white matter of the left superior frontal gyrus demonstrating an incomplete rim of enhancement. Parenchyma: No significant volume loss for age. Ventricles: Normal caliber and morphology. Skull Base: Hypothalamic and pituitary region are grossly normal. Craniocervical junction is normal. No significant marrow replacement process. Vasculature: Major intracranial arterial structures, and dural venous sinuses show typical flow void, suggesting patency by spin echo criteria. Other: The visualized paranasal sinuses and mastoid air cells are clear. The orbits and extracranial soft tissues are unremarkable. Cervical spine: Counting reference: Craniocervical junction. Anatomic Variants: None. Localizer images: No additional findings. Alignment: Alignment is anatomic. Craniocervical junction: Craniocervical junction is normal. Spinal Cord: Multiple abnormal T2 STIR hyperintense lesions are present throughout the cervical spinal cord, with the largest lesions present at the level of C1 within the left dorsolateral cord, within the left hemicord at the level of C3, the posterior central cord at the level of C4, the right lateral cord at the level of the C4-C5 disc space, and the right dorsolateral cord at the level of C6-C7. Many of these lesions demonstrate abnormal postcontrast enhancement, with the most avidly enhancing intramedullary lesion in the left lateral aspect of the spinal cord at the level of C3. Bone marrow signal/fracture: No evidence of pathologic marrow infiltration. No evidence of prior fracture. Cervical soft tissues: The paraspinal soft tissues are within normal limits. Canal and foramina: Mild multilevel degenerative changes without substantial canal or foraminal stenosis. IMPRESSION IMPRESSION: Numerous T2 hyperintense lesions are present throughout the bilateral supratentorial and left infratentorial brain, as well as multifocally throughout the cervical spinal cord, several of which demonstrate abnormal postcontrast enhancement. These findings are highly concerning for sequelae of extensive demyelinating disease including several areas of active demyelination. URGENT RESULTS Acuity: Urgent Communication: Communicated with VINOD GRAY on 04/30/2024 4:02 PM via verbal communication. --END OF FINDING-- Balance Wheel Screw Hole Tapper: NANCY Transcribe Date/Time: Apr 30 2024 3:41P Dictated by : OLGA MCCOY MD This examination was interpreted and the report reviewed and electronically signed by: OLGA MCCOY MD on Apr 30 2024 4:09PM [facility] MR Cervical spine WO and W c ontrast Alex 04-30-2024 * * *Final Report* * * DATE OF EXAM: Apr 30 2024 3:38PM [facility] 0298 - MRI CERVICAL SPINE WO/W IVCON / PROCEDURE REASON: multiple diagnoses * * * * Physician Interpretation * * * * EXAMINATION: MRI BRAIN WO/W IVCON, MRI CERVICAL SPINE WO/W IVCON CLINICAL HISTORY: Numbness and tingling TECHNIQUE: Routine brain and cervical spine MRI protocol without and with contrast including intracranial diffusion weighted sequence. Contrast: 16 mL Dotarem IV COMPARISON: None. RESULT: Brain: Acute Change: No evidence of acute infarct. Hemorrhage: No evidence of space-occupying intracranial hemorrhage. Mass Lesion/ Mass Effect: No mass effect identified. White matter and enhancement: Numerous irregular T2 FLAIR hyperintense lesions are present multifocally throughout the bilateral cerebral hemispheric white matter including periventricular, subcortical, and juxtacortical locations, as well as the left lateral jony and adjacent left middle cerebellar peduncle. Several lesions demonstrate associated postcontrast enhancement, with the most avidly enhancing lesion located in the juxtacortical white matter of the left superior frontal gyrus demonstrating an incomplete rim of enhancement. Parenchyma: No significant volume loss for age. Ventricles: Normal caliber and morphology. Skull Base: Hypothalamic and pituitary region are grossly normal. Craniocervical junction is normal. No significant marrow replacement process. Vasculature: Major intracranial arterial structures, and dural venous sinuses show typical flow void, suggesting patency by spin echo criteria. Other: The visualized paranasal sinuses and mastoid air cells are clear. The orbits and extracranial soft tissues are unremarkable. Cervical spine: Counting reference: Craniocervical junction. Anatomic Variants: None. Localizer images: No additional findings. Alignment: Alignment is anatomic. Craniocervical junction: Craniocervical junction is normal. Spinal Cord: Multiple abnormal T2 STIR hyperintense lesions are present throughout the cervical spinal cord, with the largest lesions present at the level of C1 within the left dorsolateral cord, within the left hemicord at the level of C3, the posterior central cord at the level of C4, the right lateral cord at the level of the C4-C5 disc space, and the right dorsolateral cord at the level of C6-C7. Many of these lesions demonstrate abnormal postcontrast enhancement, with the most avidly enhancing intramedullary lesion in the left lateral aspect of the spinal cord at the level of C3. Bone marrow signal/fracture: No evidence of pathologic marrow infiltration. No evidence of prior fracture. Cervical soft tissues: The paraspinal soft tissues are within normal limits. Canal and foramina: Mild multilevel degenerative changes without substantial canal or foraminal stenosis. DIVISION OF RADIOLOGY Provider, [facility] - 04/30/2024 * * *Final Report* * * DATE OF EXAM: Apr 30 2024 3:38PM [facility] 0298 - MRI CERVICAL SPINE WO/W IVCON / PROCEDURE REASON: multiple diagnoses * * * * Physician Interpretation * * * * EXAMINATION: MRI BRAIN WO/W IVCON, MRI CERVICAL SPINE WO/W IVCON CLINICAL HISTORY: Numbness and tingling TECHNIQUE: Routine brain and cervical spine MRI protocol without and with contrast including intracranial diffusion weighted sequence. Contrast: 16 mL Dotarem IV COMPARISON: None. RESULT: Brain: Acute Change: No evidence of acute infarct. Hemorrhage: No evidence of space-occupying intracranial hemorrhage. Mass Lesion/ Mass Effect: No mass effect identified. White matter and enhancement: Numerous irregular T2 FLAIR hyperintense lesions are present multifocally throughout the bilateral cerebral hemispheric white matter including periventricular, subcortical, and juxtacortical locations, as well as the left lateral jony and adjacent left middle cerebellar peduncle. Several lesions demonstrate associated postcontrast enhancement, with the most avidly enhancing lesion located in the juxtacortical white matter of the left superior frontal gyrus demonstrating an incomplete rim of enhancement. Parenchyma: No significant volume loss for age. Ventricles: Normal caliber and morphology. Skull Base: Hypothalamic and pituitary region are grossly normal. Craniocervical junction is normal. No significant marrow replacement process. Vasculature: Major intracranial arterial structures, and dural venous sinuses show typical flow void, suggesting patency by spin echo criteria. Other: The visualized paranasal sinuses and mastoid air cells are clear. The orbits and extracranial soft tissues are unremarkable. Cervical spine: Counting reference: Craniocervical junction. Anatomic Variants: None. Localizer images: No additional findings. Alignment: Alignment is anatomic. Craniocervical junction: Craniocervical junction is normal. Spinal Cord: Multiple abnormal T2 STIR hyperintense lesions are present throughout the cervical spinal cord, with the largest lesions present at the level of C1 within the left dorsolateral cord, within the left hemicord at the level of C3, the posterior central cord at the level of C4, the right lateral cord at the level of the C4-C5 disc space, and the right dorsolateral cord at the level of C6-C7. Many of these lesions demonstrate abnormal postcontrast enhancement, with the most avidly enhancing intramedullary lesion in the left lateral aspect of the spinal cord at the level of C3. Bone marrow signal/fracture: No evidence of pathologic marrow infiltration. No evidence of prior fracture. Cervical soft tissues: The paraspinal soft tissues are within normal limits. Canal and foramina: Mild multilevel degenerative changes without substantial canal or foraminal stenosis. IMPRESSION IMPRESSION: Numerous T2 hyperintense lesions are present throughout the bilateral supratentorial and left infratentorial brain, as well as multifocally throughout the cervical spinal cord, several of which demonstrate abnormal postcontrast enhancement. These findings are highly concerning for sequelae of extensive demyelinating disease including several areas of active demyelination. URGENT RESULTS Acuity: Urgent Communication: Communicated with VINOD GRAY on 04/30/2024 4:02 PM via verbal communication. --END OF FINDING-- Balance Wheel Screw Hole Tapper: NANCY Transcribe Date/Time: Apr 30 2024 3:41P Dictated by : OLGA MCCOY MD This examination was interpreted and the report reviewed and electronically signed by: OLGA MCCOY MD on Apr 30 2024 4:09PM EST [facility] MRI BRAIN WO/W IVCONon 04-30 MRI BRAIN WO/W IVCON * * *Final Report* * * DATE OF EXAM: Apr 30 2024 3:38PM MANNY Sutherland5 - MRI BRAIN WO/W IVCON / PROCEDURE REASON: multiple diagnoses * * * * Physician Interpretation * * * * EXAMINATION: MRI BRAIN WO/W IVCON, MRI CERVICAL SPINE WO/W IVCON CLINICAL HISTORY: Numbness and tingling TECHNIQUE: Routine brain and cervical spine MRI protocol without and with contrast including intracranial diffusion weighted sequence. Contrast: 16 mL Dotarem IV COMPARISON: None. RESULT: Brain: Acute Change: No evidence of acute infarct. Hemorrhage: No evidence of space-occupying intracranial hemorrhage. Mass Lesion/ Mass Effect: No mass effect identified. White matter and enhancement: Numerous irregular T2 FLAIR hyperintense lesions are present multifocally throughout the bilateral cerebral hemispheric white matter including periventricular, subcortical, and juxtacortical locations, as well as the left lateral jony and adjacent left middle cerebellar peduncle. Several lesions demonstrate associated postcontrast enhancement, with the most avidly enhancing lesion located in the juxtacortical white matter of the left superior frontal gyrus demonstrating an incomplete rim of enhancement. Parenchyma: No significant volume loss for age. Ventricles: Normal caliber and morphology. Skull Base: Hypothalamic and pituitary region are grossly normal. Craniocervical junction is normal. No significant marrow replacement process. Vasculature: Major intracranial arterial structures, and dural venous sinuses show typical flow void, suggesting patency by spin echo criteria. Other: The visualized paranasal sinuses and mastoid air cells are clear. The orbits and extracranial soft tissues are unremarkable. Cervical spine: Counting reference: Craniocervical junction. Anatomic Variants: None. Localizer images: No additional findings. Alignment: Alignment is anatomic. Craniocervical junction: Craniocervical junction is normal. Spinal Cord: Multiple abnormal T2 STIR hyperintense lesions are present throughout the cervical spinal cord, with the largest lesions present at the level of C1 within the left dorsolateral cord, within the left hemicord at the level of C3, the posterior central cord at the level of C4, the right lateral cord at the level of the C4-C5 disc space, and the right dorsolateral cord at the level of C6-C7. Many of these lesions demonstrate abnormal postcontrast enhancement, with the most avidly enhancing intramedullary lesion in the left lateral aspect of the spinal cord at the level of C3. Bone marrow signal/fracture: No evidence of pathologic marrow infiltration. No evidence of prior fracture. Cervical soft tissues: The paraspinal soft tissues are within normal limits. Canal and foramina: Mild multilevel degenerative changes without substantial canal or foraminal stenosis. IMPRESSION: Numerous T2 hyperintense lesions are present throughout the bilateral supratentorial and left infratentorial brain, as well as multifocally throughout the cervical spinal cord, several of which demonstrate abnormal postcontrast enhancement. These findings are highly concerning for sequelae of extensive demyelinating disease including several areas of active demyelination. URGENT RESULTS Acuity: Urgent Communication: Communicated with VINOD GRAY on 04/30/2024 4:02 PM via verbal communication. --END OF FINDING-- Balance Wheel Screw Hole Tapper: NANCY Transcribe Date/Time: Apr 30 2024 3:41P Dictated by : OLGA MCCOY MD This examination was interpreted and the report reviewed and electronically signed by: OLGA MCCOY MD on Apr 30 2024 4:09PM EST [id number] Normal [facility] MRI CERVICAL SPINE WO/W IVCO Non 04-30-2024 MRI CERVICAL SPINE WO/W IVCON * * *Final Report* * * DATE OF EXAM: Apr 30 2024 3:38PM [facility] [id number] - MRI CERVICAL SPINE WO/W IVCON / PROCEDURE REASON: multiple diagnoses * * * * Physician Interpretation * * * * EXAMINATION: MRI BRAIN WO/W IVCON, MRI CERVICAL SPINE WO/W IVCON CLINICAL HISTORY: Numbness and tingling TECHNIQUE: Routine brain and cervical spine MRI protocol without and with contrast including intracranial diffusion weighted sequence. Contrast: 16 mL Dotarem IV COMPARISON: None. RESULT: Brain: Acute Change: No evidence of acute infarct. Hemorrhage: No evidence of space-occupying intracranial hemorrhage. Mass Lesion/ Mass Effect: No mass effect identified. White matter and enhancement: Numerous irregular T2 FLAIR hyperintense lesions are present multifocally throughout the bilateral cerebral hemispheric white matter including periventricular, subcortical, and juxtacortical locations, as well as the left lateral jony and adjacent left middle cerebellar peduncle. Several lesions demonstrate associated postcontrast enhancement, with the most avidly enhancing lesion located in the juxtacortical white matter of the left superior frontal gyrus demonstrating an incomplete rim of enhancement. Parenchyma: No significant volume loss for age. Ventricles: Normal caliber and morphology. Skull Base: Hypothalamic and pituitary region are grossly normal. Craniocervical junction is normal. No significant marrow replacement process. Vasculature: Major intracranial arterial structures, and dural venous sinuses show typical flow void, suggesting patency by spin echo criteria. Other: The visualized paranasal sinuses and mastoid air cells are clear. The orbits and extracranial soft tissues are unremarkable. Cervical spine: Counting reference: Craniocervical junction. Anatomic Variants: None. Localizer images: No additional findings. Alignment: Alignment is anatomic. Craniocervical junction: Craniocervical junction is normal. Spinal Cord: Multiple abnormal T2 STIR hyperintense lesions are present throughout the cervical spinal cord, with the largest lesions present at the level of C1 within the left dorsolateral cord, within the left hemicord at the level of C3, the posterior central cord at the level of C4, the right lateral cord at the level of the C4-C5 disc space, and the right dorsolateral cord at the level of C6-C7. Many of these lesions demonstrate abnormal postcontrast enhancement, with the most avidly enhancing intramedullary lesion in the left lateral aspect of the spinal cord at the level of C3. Bone marrow signal/fracture: No evidence of pathologic marrow infiltration. No evidence of prior fracture. Cervical soft tissues: The paraspinal soft tissues are within normal limits. Canal and foramina: Mild multilevel degenerative changes without substantial canal or foraminal stenosis. IMPRESSION: Numerous T2 hyperintense lesions are present throughout the bilateral supratentorial and left infratentorial brain, as well as multifocally throughout the cervical spinal cord, several of which demonstrate abnormal postcontrast enhancement. These findings are highly concerning for sequelae of extensive demyelinating disease including several areas of active demyelination. URGENT RESULTS Acuity: Urgent Communication: Communicated with VINOD GRAY on 04/30/2024 4:02 PM via verbal communication. --END OF FINDING-- Balance Wheel Screw Hole Tapper: NANCY Transcribe Date/Time: Apr 30 2024 3:41P Dictated by : OLGA MCCOY MD This examination was interpreted and the report reviewed and electronically signed by: OLGA MCCOY MD on Apr 30 2024 4:09PM EST [id number] Normal [facility] No Panel Informationon 04-30 IMPRESSION: Numerous T2 hyperintense lesions are present throughout the bilateral supratentorial and left infratentorial brain, as well as multifocally throughout the cervical spinal cord, several of which demonstrate abnormal postcontrast enhancement. These findings are highly concerning for sequelae of extensive demyelinating disease including several areas of active demyelination. URGENT RESULTS Acuity: Urgent Communication: Communicated with VINOD GRAY on 04/30/2024 4:02 PM via verbal communication. --END OF FINDING-- Balance Wheel Screw Hole Tapper: NANCY Transcribe Date/Time: Apr 30 2024 3:41P Dictated by : OLGA MCCOY MD This examination was interpreted and the report reviewed and electronically signed by: OLGA MCCOY MD on Apr 30 2024 4:09PM [facility] DIVISION OF RADIOLOGY Radiology Study observation (narrative) [facility] No Panel InformationOrdered By: Ccf Provider on 04-30-2024 [facility] PROTEIN ELECTROPHORESIS SERU M WITH EMILY (P)on 04-30-2024 Albumin [Mass/Vol] 4.15 g/dL Normal 3.43-5.41 [facility] Comment on above: Order Comment: Speci men Type: BLOOD SPECIMENOrdering Facility: [facility] Address: [address] [place] [address] Performed By: #### L [id number] ####[facility] LABIA [id number] [place] [address] [place] Alpha 1 globulin Elph [Mass/Vol] 0.24 g/dL Normal 0.18-0.43 [facility] Comment on above: Order Comment: Speci men Type: BLOOD SPECIMENOrdering Facility: [facility] Address: [address] [place] [address] Performed By: #### L [id number] ####[facility] LABIA [id number] [place] [address] [place] Alpha 2 globulin Elph [Mass/Vol] 0.55 g/dL Normal 0.42-0.98 [facility] Comment on above: Order Comment: Speci men Type: BLOOD SPECIMENOrdering Facility: [facility] Address: [address] [place] [address] Performed By: #### L [id number] ####[facility] LABCLIA [id number] [address] [place] Beta globulin Elph [Mass/Vol] 0.66 g/dL Normal 0.61-1.17 [facility] Comment on above: Order Comment: Speci men Type: BLOOD SPECIMENOrdering Facility: [facility] Address: [address] [place] [address] Performed By: #### L [id number] ####[facility] LABIA [id number] [place] [address] [place] COMMENT (SERUM PROT ELECTRO) Monoclonal Protein analysis (immunofixation) is not indicated. Normal [facility] Comment on above: Order Comment: Speci men Type: BLOOD SPECIMENOrdering Facility: [facility] Address: [address] [place] [address] Performed By: #### L [id number] ####[facility] LABCLIA [id number] [address] [place] Gamma globulin Elph [Mass/Vol] 1.11 g/dL Normal 0.53-1.51 [facility] Comment on above: Order Comment: Speci men Type: BLOOD SPECIMENOrdering Facility: [facility] Address: [address] [place] [address] Performed By: #### L [id number] ####[facility] LABCLIA [id number] [address] [place] M-PROTEIN LOCATION Normal [facility] Comment on above: Order Comment: Speci men Type: BLOOD SPECIMENOrdering Facility: [facility] Address: [address] [place] [address] Result Comment: Not Applicable. Performed By: #### L [id number] ####[facility] LABCLIA [id number] [place] [address] [place] Protein Fractions [Interp] No definitive M protein is identified on protein electrophoresis. Normal No definitive M protein is identified on protein electrophore sis. [facility] Comment on above: Order Comment: Speci men Type: BLOOD SPECIMENOrdering Facility: [facility] Address: [address] [place] [address] Performed By: #### L [id number] ####[facility] LABIA [id number] [place] [address] [place] Protein.monoclonal Elph [Mass/Vol] 0.00 g/dL Normal <=0.00 [facility] Comment on above: Order Comment: Speci men Type: BLOOD SPECIMENOrdering Facility: [facility] Address: [address] [place] [address] Performed By: #### L [id number] ####[facility] LABIA [id number] [place] [address] [place] SPE STAFF REVIEW Reviewed by Dr. Barbara Reddy MD [place] Comment on above: Order Comment: Speci men Type: BLOOD SPECIMENOrdering Facility: [facility] Address: [address] [place] [address] Performed By: #### L [id number] ####[facility] LABIA [id number] [place] [address] [place] Prot SerPl-mCncon 04-30-2024 Protein [Mass/Vol] 6.7 g/dL Normal 6.3-8.0 [facility] Comment on above: Order Comment: Speci men Type: BLOOD SPECIMENOrdering Facility: [facility] Address: [address] [place] [address] Performed By: #### 3 016-3, 2132-9, 2885-2, 2284-8 ####[facility] LABIA [id number] [place] [address] [place] TSH SerPl-aCncon 04-30-2024 TSH Qn 2.320 m[IU]/L Normal 0.270-4.200 [facility] Comment on above: Order Comment: Elisa wiggins Type: BLOOD SPECIMENOrdering Facility: [facility] Address: [address] [place] [address] [place] [address] Result Comment: If t he patient is , TSH reference range varies by gestational period: First Trimester (weeks 9-12): 0.180-2.990 mIU/L Second Trimester: 0.110-3.980 mIU/L Third Trimester: 0.480-4.710 mIU/L Yoni Heart et al. A Practical Approach for the Verifications and Determination of Site- and Trimester-Specific Reference Intervals for Thyroid Function tests in . Thyroid, 2019:29:3:412-420. Chauncey Thacker et al. 2017 Guidelines of the [place] Thyroid Association for the Diagnosis and Management of Thyroid Disease during and the . Thyroid, 2017:27:3:315-389. Performed By: #### 3 016-3, 2132-9, 2885-2, 2284-8 ####[facility] LABCLIA [id number] [address] [place] VITAMIN B1 (THIAMINE), WHOLE BLOODon 04-30-2024 Thiamine (Bld) [Moles/Vol] 130.5 nmol/L Normal 84.3-213.3 [facility] Comment on above: Order Comment: Elisa wiggins Type: BLOOD SPECIMENOrdering Facility: [facility] Address: [address] [place] [address] Result Comment: This assay measures the concentration of thiamine diphosphate (TDP), the primary active form of vitamin B1. Approximately 90 percent of vitamin B1 present in whole blood is TDP. Thiamine and thiamine monophosphate, which comprise the remaining 10 percent, are not measured. This test was developed, and its performance characteristics determined by the [facility] Department of Pathology and Laboratory Medicine. It has not been cleared or approved by the FDA. The [facility] Department of Pathology and Laboratory Medicine is regulated under CLIA as qualified to perform high-complexity testing. This test is used for clinical purposes. It should not be regarded as investigational or for research. Performed By: #### B 1WB ####[facility] LABIA [id number] [place] [address] [place] VITAMIN B6/PYRIDOXINon 04-30 VITAMIN B6 62.4 nmol/L Normal 20.0-125.0 [facility] Comment on above: Order Comment: Speci men Type: BLOOD SPECIMENOrdering Facility: [facility] Address: [address] [place] [address] Result Comment: INTE RPRETIVE INFORMATION: Vitamin B6 (Pyridoxal 5-Phosphate) Pyridoxal 5'-phosphate measured in a specimen collected following an 8-hour or overnight fast accurately indicates vitamin B6 nutritional status. Non-fasting specimen concentration reflects recent vitamin intake. This test was developed and its performance characteristics determined by [employer]. It has not been cleared or approved by the [place] Food and Drug Administration. This test was performed in a CLIA certified laboratory and is intended for clinical purposes. Performed By: [facility] [address] [address] [employer] Associate: Reza Sales MD, PhD CLIA Number: [id number] Performed By: #### V ITB6 ####[facility] [id number] [place] [address] Vit B12 SerPl-ncon 024 Cobalamin (Vitamin B12) [Mass/Vol] 319 pg/mL Normal 232-1245 [facility] Comment on above: Order Comment: Speci men Type: BLOOD SPECIMENOrdering Facility: [facility] Address: [address] [place] [address] Performed By: #### 3 016-3, 2132-9, 2885-2, 2284-8 ####[facility] LABIA [id number] [address] [place] Laura 04-21-2024 EFRAIN Telephone (NEAD[facility]) -------- NUPURTYLER ([id number]) 1995 F Date Time Provider Department 04/21/24 VERONA HUANG During your visit today, we recorded the following information about you: Gemma Asif, RN 04/21/2024 1:54 PM Signed Received corespondence from [facility] stating peer to peer needed for MRI Brain w/wo contrast 63384. Denial reason was that there has been a previously approved MRI Brain and that it needs to be confirmed that the prior approved study has not been completed. Spoke with textile designs sales representative Cynthia at [facility] and informed that per note with patient on 04/02: She has not had magnetic resonance imaging of the the brain or spinal axis. Cynthia said Authorization for MRI Brain is [id number] and C-spine MRI authorization is [id number]. Message sent to pre access with the above information. Ally Rashidrey 06/15/2024 12:54 PM Signed lvm for patient to call so we can ge her scheduled for her start up dose of her infusion and a 3 month follow up Allergies As of Date: 04/21/2024 (No Known Allergies) Date Reviewed: 04/02/2024 Reviewed by: Vinod Gray MD - Fully Assessed Reason for Visit: Appointment [186] Cmt: lvm for patient to call so we can ge her scheduled for her start up dose of her infusion and a 3 month follow up Prescriptions as of 06/15/2024 - ergocalciferol 50,000 unit capsule (VITAMIN D2, DRISDOL) Take 1 capsule by mouth one time a week. - predniSONE (DELTASONE) 50 mg Take 13 tablets in the morning and 12 tablets in the mid afternoon daily for 3 days. Take with food. - famotidine (PEPCID) 20 mg tablet Take 1 tablet by mouth two times a day. - predniSONE (DELTASONE) 20 mg tablet Take 3 tablets for 4 days, then take 2 tablets for 4 days, then take 1 tablet for 4 days, then stop. Problem List As Of Date 04/21/2024 Noted Resolved Anxiety and depression [F41.9, F32.A] 01/30/2024 Encounter Status:Closed by [facility]ENS [facility] ) -------- TYLER HO ([id number]) 1995 F Date Time Provider Department 04/02/24 9:00 AM VINOD GRAY During your visit today, we recorded the following information about you: Temperature Pulse Blood pressure Weight 99.2 degrees 89/minute 138/88 85 kg Height 1.803 m Vinod Gray MD 04/05/2024 3:11 PM Signed Ms. Tyler Anderson is referred by Dr. Pilar Ortiz for an initial outpatient consultation because of somatosensory symptoms. She is a 28-year-old right-handed white female with a past medical history that is otherwise insignificant. She is here primarily because of a sense of numbness in the left hand as though she was "wearing a glove" together with impaired fine motor skills in this hand chiefly noted with typing and other similar activities. This is part of a wider issue involving somatosensory symptoms that began gradually in her legs perhaps more so on the left approximately three years ago this involved the top of the thigh as well as the knee but not the foot. My overall sense is that since then this has been a persistent albeit fluctuating phenomenon which gradually migrated to involve the left side of the neck, cheek and even inside the mouth. Although fluctuating it has become more prominent particularly in the last few weeks. Involvement of the left hand began shortly after the lower extremities as previously delineated. Other areas of involvement perhaps more sporadically have included the abdomen and the saddle region. There are no clear-cut aggravating factors save for her noticing that the symptoms tend to be most prominent in the morning and later in the day she believes perhaps because during the day itself she is focused on other things. She reports that physical activity as well as alcoholic beverages tend to aggravate the symptoms. There are no clear-cut relieving factors aside from avoiding those that aggravate the symptoms. She does relate that she has a fair bit of stiffness and aching in the cervical and shoulder regions. There is no history suggestive of Uhthoff's phenomenon but there is at least an equivocal history consistent with Lhermitte's. She denies any dragging of a leg, history suggestive of Optic Neuritis, unexplained vertigo or other somatosensory symptoms. There is at least an equivocal history of a constricted sensation around her waist or pelvis. An EMG performed in 2022 was unremarkable and she advises that because of an elevated antinuclear antibody she underwent a rheumatologic evaluation that did not demonstrate definite findings consistent with an underlying rheumatologic disease. She has not had magnetic resonance imaging of the the brain or spinal axis. Past Medical History: Her past medical history is as previously delineated. Family History: There is no history in her family of inherited problems with coordination, Multiple Sclerosis, muscular dystrophy, peripheral nerve disease, parkinsonism, recurrent troublesome headaches or seizure disorder. Her maternal great grandmother had dementia. Psychosocial History: She has been six years and has no children. She does not smoke. She has 2-3 drinks monthly. 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 Review of Systems. As of late she has been having headaches which are not particularly troublesome. These involve the eyes and the posterior head region. They may occur up to every other day or so. She believes she may have fainted on a few occasions when she has forgotten to eat. She denies any history of seizures. Likewise she denies any weakness, wasting, unusual cramping or twitching of her muscles, numbness or tingling aside from what we have already mentioned. She has noticed occasional twitching and cramping in her hands. There are no visual difficulties aside from wearing corrective lenses and she denies any aberration of her sense of hearing, taste or smell. Speech, swallowing, bladder and bowel function are unimpaired. She has lost consciousness for 30 to 60 seconds on 3 occasions secondary to head trauma. There is no history of fracture of the spinal column, meningitis or encephalitis. Neurologic examination on April 02, 2024 revealed an awake, alert, pleasant, cooperative and coherent woman. Her stance is mildly wide-based and I suspect the gait was similarly ataxic. There was a most borderline Rhomberg exam. We did not have her walk tandem today. The rapid alternating movements of the tongue fingers and toes were performed well save for a moderate decrement in the left fingers. Finger-nose testing was performed well on the right but there was at least a mild to moderate appendicular ataxia as she approached the target on the left. Cranial Nerves: II-visual hdz full, fundi benign although I query the possibility of (more content not included)... Normal [facility] HISTORY PHYSICALon HISTORY PHYSICAL HNO ID: [id number] Author: VINOD GRAY MD Service: ? Author Type: Physician Type: H&P Filed: 04/05/2024 15:11 Note Text: Ms. Tyler Anderson is referred by Dr. Pilar Ortiz for an initial outpatient consultation because of somatosensory symptoms. She is a 28-year-old right-handed white female with a past medical history that is otherwise insignificant. She is here primarily because of a sense of numbness in the left hand as though she was wearing a glove together with impaired fine motor skills in this hand chiefly noted with typing and other similar activities. This is part of a wider issue involving somatosensory symptoms that began gradually in her legs perhaps more so on the left approximately three years ago this involved the top of the thigh as well as the knee but not the foot. My overall sense is that since then this has been a persistent albeit fluctuating phenomenon which gradually migrated to involve the left side of the neck, cheek and even inside the mouth. Although fluctuating it has become more prominent particularly in the last few weeks. Involvement of the left hand began shortly after the lower extremities as previously delineated. Other areas of involvement perhaps more sporadically have included the abdomen and the saddle region. There are no clear-cut aggravating factors save for her noticing that the symptoms tend to be most prominent in the morning and later in the day she believes perhaps because during the day itself she is focused on other things. She reports that physical activity as well as alcoholic beverages tend to aggravate the symptoms. There are no clear-cut relieving factors aside from avoiding those that aggravate the symptoms. She does relate that she has a fair bit of stiffness and aching in the cervical and "shoulder" regions. There is no history suggestive of Uhthoff's phenomenon but there is at least an equivocal history consistent with Lhermitte's. She denies any dragging of a leg, history suggestive of Optic Neuritis, unexplained vertigo or other somatosensory symptoms. There is at least an equivocal history of a constricted sensation around her waist or pelvis. An EMG performed in 2022 was unremarkable and she advises that because of an elevated antinuclear antibody she underwent a rheumatologic evaluation that did not demonstrate definite findings consistent with an underlying rheumatologic disease. She has not had magnetic resonance imaging of the the brain or spinal axis. Past Medical History: Her past medical history is as previously delineated. Family History: There is no history in her family of inherited problems with coordination, Multiple Sclerosis, muscular dystrophy, peripheral nerve disease, parkinsonism, recurrent troublesome headaches or seizure disorder. Her maternal great grandmother had dementia. Psychosocial History: She has been six years and has no children. She does not smoke. She has 2-3 drinks monthly. She is employed in [employer] and communications. [employer]. As of late she has been having headaches which are not particularly troublesome. These involve the eyes and the posterior head region. They may occur up to every other day or so. She believes she may have fainted on a few occasions when she has forgotten to eat. She denies any history of seizures. Likewise she denies any weakness, wasting, unusual cramping or twitching of her muscles, numbness or tingling aside from what we have already mentioned. She has noticed occasional twitching and cramping in her hands. There are no visual difficulties aside from wearing corrective lenses and she denies any aberration of her sense of hearing, taste or smell. Speech, swallowing, bladder and bowel function are unimpaired. She has lost consciousness for 30 to 60 seconds on 3 occasions secondary to head trauma. There is no history of fracture of the spinal column, meningitis or encephalitis. Neurologic examination on April 02, 2024 revealed an awake, alert, pleasant, cooperative and coherent woman. Her stance is mildly wide-based and I suspect the gait was similarly ataxic. There was a most borderline Rhomberg exam. We did not have her walk tandem today. The rapid alternating movements of the tongue fingers and toes were performed well save for a moderate decrement in the left fingers. Finger-nose testing was performed well on the right but there was at least a mild to moderate appendicular ataxia as she approached the target on the left. Cranial Nerves: II-visual hdz full, fundi benign although I query the possibility of left optic atrophy III IV -extraocular movements normal VII-muscles of facial expression normal in power bilaterally XII-tongue midline Motor System: Strength in the deltoids, biceps, triceps, wrist extensors, finger extensors, interossei, iliopsoas, quadriceps, hamstrings, anterior tibialis and (more content not included)... Normal [facility] XR Hand - left PA and Latera l and Obliqueon 04-01-2024 IMPRESSION: No acute osseous abnormality. Balance Wheel Screw Hole Tapper: NANCY Transcribe Date/Time: Apr 01 2024 3:26P Dictated by : DAQUAN GILMORE MD This examination was interpreted and the report reviewed and electronically signed by: DAQUAN GILMORE MD on Apr 01 2024 3:26PM [facility] DIVISION OF RADIOLOGY * * *Final Report* * * DATE OF EXAM: Apr 01 2024 8:28AM CHX 5345 - XR HAND 3V PA/LAT/OBL LT / PROCEDURE REASON: Pain * * * * Physician Interpretation * * * * EXAM: XR HAND 3V PA/LAT/OBL LT HISTORY: Pain . left hand pain no injury TECHNIQUE: XR HAND 3V PA/LAT/OBL LT Laterality: LEFT Number of different views (projections): 3 COMPARISON: None. RESULT: Bones: No fracture or dislocation is present. Joints: The joint spaces are normal. Soft tissue: Normal. DIVISION OF RADIOLOGY Provider, [facility] - 04/01/2024 * * *Final Report* * * DATE OF EXAM: Apr 01 2024 8:28AM CHX 5345 - XR HAND 3V PA/LAT/OBL LT / PROCEDURE REASON: Pain * * * * Physician Interpretation * * * * EXAM: XR HAND 3V PA/LAT/OBL LT HISTORY: Pain . left hand pain no injury TECHNIQUE: XR HAND 3V PA/LAT/OBL LT Laterality: LEFT Number of different views (projections): 3 COMPARISON: None. RESULT: Bones: No fracture or dislocation is present. Joints: The joint spaces are normal. Soft tissue: Normal. IMPRESSION IMPRESSION: No acute osseous abnormality. Balance Wheel Screw Hole Tapper: NANCY Transcribe Date/Time: Apr 01 2024 3:26P Dictated by : DAQUAN GILMORE MD This examination was interpreted and the report reviewed and electronically signed by: DAQUAN GILMORE MD on Apr 01 2024 3:26PM EST [facility] Radiology Study observation (narrative) [facility] XR Hand - left PA and Latera l and ObliqueOrdered By: Ccf Provider on 04-01-2024 [facility] CCP ANTIBODYon 12-13-2023 CCP AB < Normal <20.0 [facility] Comment on above: Result Comment: The following results were obtained with the [employer] QUANTA Flash CCP3 chemiluminescent immunoassay. Values obtained with different manufacturers' assay methods may not be used interchangeably. Performed By: #### 4 7374 #### [facility] [address] [place] [address] Chase Fountain M.D. [id number] CHROMATIN ANTIBODIESon 12-12 [place] - CHROMATIN (NUCLEOSOMAL) AB <1.0 NEG Normal <1.0 NEGATIVE [facility] Comment on above: Result Comment: Test Performed by: [facility] [place] [address] [place] [id number] Performed By: #### 4 7375 #### [facility] [address] CRP, Inflammationon 12-13-19 CRP [Mass/Vol] mg/L 0.0 - 10.0 mg/L [facility] Creatinine [Mass/Vol]on 11-18 GFR/1.73 sq M.predicted CKD-EPI (S/P/Bld) [Vol rate/Area] 121 - PINF [facility] Comment on above: Estimated GFR was ca lculated using the 2020 CKD-EPI creatinine equation. [facility] Laborator y Services has implemented the eGFR calculation approach that does not have a coefficient for race that conforms to the NKF-ASN Task Force Recommendations. [facility] Creatinine, serumon 12-13-19 Creatinine [Mass/Vol] 0.69 mg/dL 0.40 - 1.10 mg/dL [facility] DNA DOUBLE-STRANDED ANTIBODY on 12-13-2023 ANTI DNA DOUBLE STRANDED TITER < Normal <1:10 [facility] Comment on above: Order Comment: Test performed using [employer] QUANTA-Lyser 3000 by IFA Performed By: #### 4 5079 #### [facility] [address] [place] [address] Chase Fountain M.D. [id number] NIKO SCREEN (RO52,RO60,SSB,SM ,SLAT BASKET TOP MAKER,SCL-70,JO1)on 12-13-2023 NIKO SCREEN INTERPRETATION Negative Normal Negative [facility] Comment on above: Order Comment: The f ollowing results were obtained using [employer] Flash chemiluminescent immunoassay. Values obtained with different manufacturers' assay methods may not be used interchangeably. Result Comment: The NIKO Screen tests for Ro52, Ro60, SSB, SM, SLAT BASKET TOP MAKER, SCL-70, and JO1. Performed By: #### 4 5536 #### [facility] [address] [place] [address] Chase Fountain M.D. [id number] ESR Westergren method (Bld) [Velocity]on 12-13-2023 ESR (Bld) [Velocity] 8 mm/h [facility] Interpretation and review of laboratory results Normal [facility] Hepatic function 2000 panelo n 12-13-2023 Albumin [Mass/Vol] 4.5 g/dL 3.2 - 5.2 g/dL [facility] ALP [Catalytic activity/Vol] 39 U/L Low 40 - 140 U/L [facility] ALT [Catalytic activity/Vol] 12 U/L 0-35 U/L [facility] AST [Catalytic activity/Vol] 14 U/L 0-35 U/L [facility] Bilirubin [Mass/Vol] 1.2 mg/dL 0.0 - 1 .3 mg/dL [facility] Bilirubin.conjugated [Mass/Vol] 0.3 mg/dL 0.0 - 0.4 mg/dL [facility] Interpretation and review of laboratory results Abnormal [facility] Protein [Mass/Vol] 7.7 g/dL 6.0 - 8.0 g/dL [facility] No Panel Informationon 12-12 Interpretation and review of laboratory results Normal [facility] Protein / Creatinine Ratio, Urineon 12-13-2023 Protein/Creatinine (U) [Ratio] 0.1 [facility] Protein/Creatinine (U) [Rati o]on 12-13-2023 Creatinine (U) [Mass/Vol] 112.0 mg/dL [facility] Protein (U) [Mass/Vol] 9.0 mg/dL [facility] No Panel InformationOrdered By: Umm Jimylea on 10-24-2023 Prolactin 17.7 ng/mL [facility] Comment on above: NORMAL REFERENCE RAN GES FEMALE NON- 2.2 - 30.3 ng/mL 8.1 - 347.6 ng/mL POST-MENOPAUSAL 0.7 - 31.5 ng/mL MALE 2.5 - 17.4 ng/mL CBC panel Auto (Bld)on 06-19 Erythrocyte distribution width (RBC) [Ratio] 12.2 % Normal 11.5-14.5 [facility] Comment on above: Performed By: #### 5 8410-2 #### SHELLY PATTON ([id number]) [facility] ([facility]) [address] [place] [address] Hematocrit (Bld) [Volume fraction] 44.4 % Normal 36.0-46.0 [facility] Comment on above: Performed By: #### 5 8410-2 #### SHELLY PATTON ([id number]) [facility] ([facility]) [address] [place] [address] Hemoglobin (Bld) [Mass/Vol] 14.1 g/dL Normal 12.0-16.0 [facility] Comment on above: Performed By: #### 5 8410-2 #### SHELLY PATTON ([id number]) [facility] ([facility]) [address] [place] [address] 63889 MCH (RBC) [Entitic mass] 27.5 pg Normal 26.0-34.0 [facility] Comment on above: Performed By: #### 5 8410-2 #### SHELLY PATTON ([id number]) [facility] ([facility]) [address] [place] [address] 23488 MCHC (RBC) [Mass/Vol] 31.8 g/dL Low 32.0-36.0 [facility] Comment on above: Performed By: #### 5 8410-2 #### SHELLY PATTON ([id number]) [facility] ([facility]) [address] [place] [address] 70476 MCV (RBC) [Entitic vol] 87 fL Normal 80-100 [facility] Comment on above: Performed By: #### 5 8410-2 #### SHELLY PATTON ([id number]) [facility] ([facility]) [address] [place] [address] 73171 Nucleated RBC/100 WBC (Bld) [Ratio] 0.0 /100 WBCs Normal 0.0-0.0 [facility] Comment on above: Performed By: #### 5 8410-2 #### SHELLY PATTON ([id number]) [facility] ([facility]) [address] [place] [address] 36440 Platelet mean volume (Bld) [Entitic vol] 10.1 fL Normal 7.5-11.5 [facility] Comment on above: Performed By: #### 5 8410-2 #### SHELLY PATTON ([id number]) [facility] ([facility]) [address] [place] [address] 84215 Platelets (Bld) [#/Vol] 327 x10*3/uL Normal 150-450 [facility] Comment on above: Performed By: #### 5 8410-2 #### SHELLY PATTON ([id number]) [facility] ([facility]) [address] [place] [address] 57016 RBC (Bld) [#/Vol] 5.12 x10*6/uL Normal 4.00-5.20 [facility] Comment on above: Performed By: #### 5 8410-2 #### SHELLY PATTON ([id number]) [facility] ([facility]) [address] [place] [address] 77406 WBC (Bld) [#/Vol] 7.7 x10*3/uL Normal 4.4-11.3 [facility] Comment on above: Performed By: #### 5 8410-2 #### SHELLY PATTON ([id number]) [facility] ([facility]) [address] [place] [address] Calcidiolon 06-19-2023 25-hydroxyvitamin D3 [Mass/Vol] 39 ng/mL Normal 30-100 [facility] Comment on above: Order Comment: Defic iency: < 20 ng/ml Insufficiency: 20-29 ng/ml Sufficiency: 30-100 ng/ml This assay accurately quantifies the sum of Vitamin D3, 25-Hydroxy and Vitamin D2,25-Hydroxy. Performed By: #### 1 989-3 #### SHELLY PATTON ([id number]) [facility] ([facility]) [address] [place] [address] Cobalaminson 06-19-2023 Cobalamin (Vitamin B12) [Mass/Vol] 286 pg/mL Normal 211-911 [facility] Comment on above: Performed By: #### 2 132-9 #### SHELLY PATTON ([id number]) [facility] ([facility]) [address] [place] [address] Comprehensive metabolic 2000 panelon 06-19-2023 Albumin BCP dye [Mass/Vol] 4.6 g/dL Normal 3.4-5.0 [facility] Comment on above: Performed By: #### 2 4323-8 #### SHELLY PATTON ([id number]) [facility] ([facility]) [address] [place] [address] ALP [Catalytic activity/Vol] 40 U/L Normal 33-110 [facility] Comment on above: Performed By: #### 2 4323-8 #### SHELLY PATTON ([id number]) [facility] ([facility]) [address] [place], [place] [id number] ALT With P-5'-P [Catalytic activity/Vol] 12 U/L Normal 7-45 [facility] Comment on above: Result Comment: Christina ents treated with Sulfasalazine may generate falsely decreased results for ALT. Performed By: #### 2 4323-8 #### SHELLY PATTON ([id number]) [facility] ([facility]) [address] [place] [address]969 Anion gap [Moles/Vol] 11 mmol/L Normal 10-20 [facility] Comment on above: Performed By: #### 2 4323-8 #### SHELLY PATTON ([id number]) [facility] ([facility]) [address] [place] [address] AST With P-5'-P [Catalytic activity/Vol] 13 U/L Normal 9-39 [facility] Comment on above: Performed By: #### 2 432-8 #### SHELLY PATTON ([id number]) [facility] ([facility]) [address] [place] [address] Bilirubin [Mass/Vol] 1.3 mg/dL High 0.0-1.2 [facility] Comment on above: Performed By: #### 2 4322-8 #### SHELLY PATTON ([id number]) [facility] ([facility]) [address] [place] [address] Calcium [Mass/Vol] 9.7 mg/dL Normal 8.6-10.3 [facility] Comment on above: Performed By: #### 2 4322-8 #### SHELLY PATTON ([id number]) [facility] ([facility]) [address] [place] [address] Chloride [Moles/Vol] 106 mmol/L Normal 98-107 [facility] Comment on above: Performed By: #### 2 432-8 #### SHELLY PATTON ([id number]) [facility] ([facility]) [address] [place] [address] CO2 [Moles/Vol] 25 mmol/L Normal 21-32 [facility] Comment on above: Performed By: #### 2 4323-8 #### SHELLY PATTON ([id number]) [facility] ([facility]) [address] [place] [address] Creatinine [Mass/Vol] 0.68 mg/dL Normal 0.50-1.05 [facility] Comment on above: Performed By: #### 2 4323-8 #### SHELLY PATTON ([id number]) [facility] ([facility]) [address] [place] [address] GFR/1.73 sq M.predicted MDRD (S/P/Bld) [Vol rate/Area] mL/min/{1.73_m2} Normal >60 [facility] Comment on above: Result Comment: Calc ulations of estimated GFR are performed using the 2020 CKD-EPI Study Refit equation without the race variable for the IDMS-Traceable creatinine methods. https://jasn.asnjournals.org/content//ASN.785416 2705 Performed By: #### 2 4323-8 #### SHELLY PATTON ([id number]) [facility] ([facility]) [address] [place] [address] 84670 Glucose [Mass/Vol] 91 mg/dL Normal 74-99 [facility] Comment on above: Performed By: #### 2 4323-8 #### SHELLY PATTON ([id number]) [facility] ([facility]) [address] [place] [address] 38314 Potassium [Moles/Vol] 4.6 mmol/L Normal 3.5-5.3 [facility] Comment on above: Performed By: #### 2 4323-8 #### SHELLY PATTON ([id number]) [facility] ([facility]) [address] [place] [address] 93252 Protein [Mass/Vol] 7.4 g/dL Normal 6.4-8.2 [facility] Comment on above: Performed By: #### 2 4323-8 #### SHELLY PATTON ([id number]) [facility] ([facility]) [address] [place] [address] 30092 Sodium [Moles/Vol] 137 mmol/L Normal 136-145 [facility] Comment on above: Performed By: #### 2 4323-8 #### SHELLY PATTON ([id number]) [facility] ([facility]) [address] [place] [address] 07718 Urea nitrogen [Mass/Vol] 13 mg/dL Normal 6-23 [facility] Comment on above: Performed By: #### 2 4323-8 #### SHELLY PATTON ([id number]) [facility] ([facility]) [address] [place] [address] Creatine kinaseon 06-19-2023 CK [Catalytic activity/Vol] 38 U/L Normal 0-215 [facility] Comment on above: Performed By: #### 2 157-6 #### SHELLY PATTON ([id number]) [facility] ([facility]) [facility] [place] [address] ESR Westergren method (Bld) [Velocity]on 06-19-2023 ESR (Bld) [Velocity] 12 mm/h Normal 0-20 [facility] Comment on above: Performed By: #### 4 537-7 #### SHELLY PATTON ([id number]) [facility] ([facility]) [address] [place] [address] Folateon 06-19-2023 Folate [Mass/Vol] 16.1 ng/mL Normal >5.0 [facility] Comment on above: Order Comment: Low < 3.4 Borderline 3.4-5.0 Normal >5.0 Patients receiving more than 5 mg/day of biotin may have interference in test results. A sample should be taken no sooner than eight hours after previous dose. Contact the testing laboratory for additional information. Performed By: #### 2 284-8 #### SHELLY PATTON ([id number]) [facility] ([facility]) [address] [place] [address] Lipid 1996 panelon 3 Cholesterol [Mass/Vol] 215 mg/dL High 0-199 [facility] Comment on above: Result Comment: Age Desirable Borderline High High 0-19 Y 0 - 169 170 - 199 >/= 200 20-24 Y 0 - 189 190 - 224 >/= 225 >24 Y 0 - 199 200 - 239 >/= 240 All ranges are based on fasting samples. Specific therapeutic targets will vary based on patient-specific cardiac risk. Pediatric guidelines reference:Pediatrics 2011, 128(S5).Adult guidelines reference: NCEP ATPIII Guidelines,GENET 2001, 258:2486-97 Venipuncture immediately after or during the administration of Metamizole may lead to falsely low results. Testing should be performed immediately prior to Metamizole dosing. Performed By: #### 2 4331-1 #### SHELLY PATTON ([id number]) [facility] ([facility]) [facility] [place] [address] Cholesterol in HDL [Mass/Vol] 75.0 mg/dL Normal [facility] Comment on above: Result Comment: Age Very Low Low Normal High 0-19 Y < 35 < 40 40-45 ---- 20-24 Y ---- < 40 >45 ---- >24 Y ---- < 40 40-60 >60 Performed By: #### 2 4331-1 #### SHELLY PATTON ([id number]) [facility] ([facility]) [address] [place] [address] 79589 Cholesterol in LDL [Mass/Vol] 131 mg/dL High <=99 [facility] Comment on above: Result Comment: Near Borderline AGE Desirable Optimal High High Very High 0-19 Y 0 - 109 --- 110-129 >/= 130 ---- 20-24 Y 0 - 119 --- 120-159 >/= 160 ---- >24 Y 0 - 99 100-129 130-159 160-189 >/=190 Performed By: #### 2 4331-1 #### SHELLY PATTON ([id number]) [facility] ([facility]) [address] [place] [address] 80290 Cholesterol in VLDL [Mass/Vol] 9 mg/dL Normal 0-40 [facility] Comment on above: Performed By: #### 2 4331-1 #### SHELLY PATTON ([id number]) [facility] ([facility]) [address] [place] [address] 34830 CHOLESTEROL/HDL RATIO 2.9 Normal [facility] Comment on above: Result Comment: Ref Values Desirable < 3.4 High Risk > 5.0 Performed By: #### 2 4331-1 #### SHELLY PATTON ([id number]) [facility] ([facility]) [address] [place] [address] 014[address] NON HDL CHOLESTEROL 140 mg/dL Normal 0-149 [facility] Comment on above: Result Comment: Age Desirable Borderline High High Very High 0-19 Y 0 - 119 120 - 144 >/= 145 >/= 160 20-24 Y 0 - 149 150 - 189 >/= 190 ---- >24 Y 30 mg/dL above LDL Cholesterol goal Performed By: #### 2 4331-1 #### SHELLY PATTON ([id number]) [facility] ([facility]) [facility] [place] [address] Triglyceride [Mass/Vol] 45 mg/dL Normal 0-149 [facility] Comment on above: Result Comment: Age Desirable Borderline High High Very High 0 D-90 D 19 - 174 ---- ---- ---- 91 D- 9 Y 0 - 74 75 - 99 >/= 100 ---- 10-19 Y 0 - 89 90 - 129 >/= 130 ---- 20-24 Y 0 - 114 115 - 149 >/= 150 ---- >24 Y 0 - 149 150 - 199 200- 499 >/= 500 Venipuncture immediately after or during the administration of Metamizole may lead to falsely low results. Testing should be performed immediately prior to Metamizole dosing. Performed By: #### 2 4331-1 #### SHELLY PATTON ([id number]) [facility] ([facility]) [address] [place] [address] Nuclear Abon 06-19-2023 Nuclear Ab Hep2 substrate Ql (S) Positive Abnormal Negative [facility] Comment on above: Result Comment: The Antinuclear Antibody (KENISHA) test was performed using indirect immunofluorescence assay with HEp-2 cells slide. Performed By: #### 5 9069-5 #### SUNSHINE Heart ([id number]) [facility] ([facility]) [address] [place] [address] Nuclear Ab Hep2 substrate Ql (S)on 06-19-2023 KENISHA PATTERN Homogeneous Normal [facility] Comment on above: Performed By: #### 5 9069-5 #### SUNSHINE Heart ([id number]) [facility] ([facility]) [address] [place] [address]52 Nuclear Ab IF (S) [Titer] 1:320 [facility] Comment on above: Performed By: #### 5 9069-5 #### SUNSHINE Heart ([id number]) [facility] ([facility]) [address] [place] [address] TSH WITH REFLEX TO FREE T4 I F ABNORMALon 06-19-2023 TSH Qn 1.96 m[IU]/L Normal 0.44-3.98 [facility] Comment on above: Order Comment: TSH t esting is performed using different testing methodology at [facility] than at other [facility]. Direct result comparisons should only be made within the same method. Performed By: #### T HYDS #### BRAVO POOJA ([id number]) [facility] ([facility]) [address] [place] [address] Laboratory - Cytologyon 06-19 Cytology report Cyto stain.thin prep Doc (Cvx/Vag) [facility] [address] [facility] [employer] Work Phone: DRAFTER - Office Visiton 06-19 DRAFTER - Office Visit Diagnoses/Problems Assessed History of Tonsillectomy 1999 Vitamin B12 deficiency (266.2) (E53.8) Encounter for Papanicolaou smear of cervix (V76.2) (Z12.4) Women's annual routine gynecological examination (V72.31) (Z01.419) Multiple loss, not currently (629.81) (N96) Orders PAP UTILIZATION ENGINEER, Cytology; Status:In Progress - Specimen/Data Collected,Retrospective Authorization; Done: [id number] Last Menstrual Period (LMP): : 06/09/2022 PAP - Site : CERVICAL Cytology Order : ThinPrep PAP, Screening, HPV Reflex - Include Genotyping Reproductive Endocrinology Referral Evaluation and Treatment Evaluate AND Treat Status: Hold For - Scheduling Requested for: [id number] Provider Impressions 1. Annual 2. Recurrent loss 3. Bicornuate uterus Recommend referral to gas turbine mechanic regarding recurrent loss and history of bicornate uterus. Follow-up in 1 year or as needed. Chief Complaint New Patient is here for her yearly exam and pap test. LMP: 06/09/2022. Patient does not do regular self breast exams and has some questions regarding recent M/C, patient had one at 14 weeks and one at 10 weeks. History of Present IllnessPresents for annual exam. She voices no complaints and is doing well. Denies any bowel or bladder problems. Denies any breast problems. Using nothing for contraception. 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 Review of Systems Review of Systems: Constitutional: No fever or chills Respiratory: No shortness of breath, or cough Cardiovascular: No chest pain or syncope Breasts: No breast pain, no masses, no nipple discharge Gastrointestinal: No nausea, vomiting, or diarrhea, no abdominal pain Genitourinary: No dysuria or frequency Gynecology: Negative except as noted in history of present illness All other: All other systems reviewed and negative for complaint Active Problems Problems Encounter for Papanicolaou smear of cervix (V76.2) (Z12.4) LUE numbness (782.0) (R20.0) Numbness and tingling (782.0) (R20.0,R20.2) Vitamin B12 deficiency (266.2) (E53.8) Vitamin D deficiency (268.9) (E55.9) Women's annual routine gynecological examination (V72.31) (Z01.419) Past Medical History Problems Encounter for preventive health examination (V70.0) (Z00.00) Resolved Date: History of miscarriage (V13.29) (Z87.59) 12/18/2020_14weeks 03/31/2022_10weeks History of Menstruation Onset age 13 years Surgical History Problems History of Tonsillectomy 1999 Family History Mother Family history of Enlarged aorta Family history of anemia (V18.2) (Z83.2) Family history of hypotension (V17.49) (Z82.49) Family history of Psychological disorder Father No pertinent family history Social History Problems Consumes alcohol weekly (V49.89) (Z78.9) Does not have living will Never smoker No illicit drug use Allergies Medication No Known Drug Allergies Recorded By: Diana Sue; 05/31/2022 8:51:25 AM Current Meds Medication NameInstruction Vitamin D (Ergocalciferol) 1.25 MG (38270 UT) Oral CapsuleTAKE 1 CAPSULE ONE TIME A WEEK Vitamin Deficiency System-B12 1000 MCG/ML Injection Kit Vitals Vital Signs Recorded: [id number] 08:36AM Yeollyin847 Plhbpbvgi82 Height5 ft 11 in Gtaanl40.1 kg BMI Llzajpsxes61.55 kg/m2 BSA Calculated2.03 Tobacco Useb) No PHQ-2 #1. Over the last 2 weeks have you felt down, depressed or hopeless? (If yes, answer PHQ-9 below)No PHQ-2 #2. Over the last 2 weeks have you felt little interest or pleasure in doing things? (If yes, answer PHQ-9 below)No Falls Screening (Age 18+)a) No falls within the last year [id number] Physical Exam PHYSICAL EXAMINATION: Well-developed, well nourished, in no acute distress, alert and oriented x three, is pleasant and cooperative. HEENT: Clear. Pupils equal, round and reactive to light and accommodation. Extraocular muscles are intact. Oral mucosa pink without exudate. NECK: No lymphadenopathy, no thyromegaly. BREASTS: Symmetric, no palpable masses. No nipple discharge or retraction. LUNGS: Clear bilaterally. HEART: Regular rate and rhythm without murmurs. ABDOMEN: Normoactive bowel sounds, soft and nontender, no guarding or rebound tenderness, no CVA tenderness. EXTREMITIES: No clubbing, cyanosis or edema. NEUROLOGIC: Cranial nerves II-XII grossly intact. : Normal external female genitalia, normal vulva, normal vagina. Normal urethral meatus, urethra and bladder. Normal appearing cervix. Normal-sized uterus, no adnexal masses or tenderness. Pap smear performed today. Signatures Electronically signed by : David Bui MD; Jul 03 2022 9:04AM EST (Author) Normal [facility] Tobacco Screening.on Adult depression screening assessment No [facility] Work Phone: [phone] Fall risk assessment a) No falls within the last year [facility] Work Phone: Last menstrual period start date 09Jun2022 [facility] Work Phone: [phone] Tobacco use status [facility] b) No [facility] Work Phone: [phone] Office Visit ([facility] e)on 06-27-2022 Follow-up visit Diagnoses/Problems LUE numbness (782.0) (R20.0) Numbness and tingling (782.0) (R20.0,R20.2) Vitamin B12 deficiency (266.2) (E53.8) Orders LUE numbness, Numbness and tingling EMG and Nerve Conduction; Status:Hold For - Scheduling; Requested for:27Jun2022; Electrodiagnostic Physician to determine whether Neuromuscular Ultrasound to be performed for optimal study : Yes Electrodiagnostic Physician to determine optimal study : Yes Patient is unable to stand or is >300lbs? : No Additional Clinical Information: : patient has complaints of left arm/hand numbness, left rib, left upper thigh. History of numbness to right side as well, onset 2-3 months ago Laterality : Left EMG Indication : Peripheral Polyneuropathy LUE numbness, Numbness and tingling, Vitamin B12 deficiency Follow-up visit in 1 month Outpatient Follow-up Status: Complete Done: 27Jun2022 Provider Impressions Vitamin B-12 deficiency: continue on vitamin B-12 injection monthly for 3 months. Vitamin d deficiency: Continue on vitamin D3 55717 units weekly Numbness/tingling: will obtain EMG left upper ext and left lower ext if warranted. If EMG studies negative consider MRI brain. Follow up in 1 month Chief Complaint Numbness left side/left hand. History of Present Illness Tyler is a 26 yo female, here today with continued concerns of numbness and tingling. Previous work up does show vitamin B12 and vitamin D deficiency, she reports she did get her B12 injection and is taking her Vitamin D weekly as prescribed. She feels as though the numbness/tingling is worsening and is now having concern for weakness and "brain fog" complains of continued numbness and tingling to left side, specifically the hand occasionally numbness to left rib area and thigh area, but hand is constant reports last week she was having difficulty walking due to "leg was heavy", Patient has spent time researching and she is concerned with neurological disorders my hand feels " asleep" I feel like i cant move my fingers" only on the left side this week 2 weeks ago it was both sides 1 year ago it was only legs lasted about 1 month and no medical care was sought out now its worse lasting 2.5-3 months difficulty finding words at times, complains of achiness haven't felt well my whole my life" denies SHETH, dizziness, SOB, or CP Review of Systems Constitutional: feeling poorly, but as noted in HPI, no chills, no fever and no night sweats. Eyes: no blurred vision and no eyesight problems. ENT: no hearing loss, no nasal congestion, no nasal discharge, no hoarseness and no sore throat. Cardiovascular: no chest pain, no intermittent leg claudication, no lower extremity edema, no palpitations and no syncope. Respiratory: no cough, no shortness of breath during exertion, no shortness of breath at rest and no wheezing. Gastrointestinal: no abdominal pain, no blood in stools, no constipation, no diarrhea, no melena, no nausea, no rectal pain and no vomiting. Genitourinary: no dysuria, no change in urinary frequency, no urinary hesitancy, no feelings of urinary urgency and no vaginal discharge. Musculoskeletal: no arthralgias, no back pain and no myalgias. Neurological: difficulty walking, memory changes, numbness and tingling, but no confusion, no convulsions, no dizziness, no headache, no speech difficulties and no syncope. Psychiatric: no anxiety, no depression, no anhedonia and no substance use disorders. Active Problems Numbness and tingling (782.0) (R20.0,R20.2) Vitamin B12 deficiency (266.2) (E53.8) Vitamin D deficiency (268.9) (E55.9) Past Medical History Encounter for preventive health examination (V70.0) (Z00.00) Resolved Date: History of Miscarriage at 8 to 28 weeks gestation (634.90) (O03.9) Surgical History History of Tonsillectomy Family History Family history of Enlarged aorta Family history of anemia (V18.2) (Z83.2) Family history of hypotension (V17.49) (Z82.49) No pertinent family history Social History Does not have living will Never smoker No illicit drug use Allergies No Known Drug Allergies Recorded By: Diana Sue; 05/31/2022 8:51:25 AM Current Meds Medication NameInstructionReason Vitamin D (Ergocalciferol) 1.25 MG (45460 UT) Oral CapsuleTAKE 1 CAPSULE ONE TIME A WEEKVitamin D deficiency Vitals Vital Signs Recorded: 27Jun2022 08:10AM Heart Rate65 Bcxijrho143 Cubwqjaqa87 Height5 ft 11 in Zibfro953 lb 4 oz BMI Trhgjbsruq97.56 kg/m2 BSA Calculated2.03 Tobacco Useb) No Physical Exam Constitutional: Alert and in no acute distress. Well developed, well nourished. Head and Face: Head and face: Normal. Eyes: Normal external exam. Pupils were equal in size, round, reactive to light (PERRL) with normal accommodation and extraocular movements intact (EOMI). Pupils: no nystagmus and equal, round, and reactive to light bilaterally.Cornea, Lens, and Sclera: Bilateral eyes: jayson (more content not included)... Normal [facility] Tobacco Screening.on 022 Tobacco use status [facility] b) No -[facility] Work Phone: CBC AND DIFFERENTIALon 05-31 Basophils (Bld) [#/Vol] 0.00 10*3/uL Normal 0.00 - 0.10 [facility] Comment on above: Performed By: #### C BCDF #### [address] [address] Basophils/100 WBC (Bld) 0.4 % Normal 0.0 - 2.0 [facility] Comment on above: Performed By: #### C BCDF #### [address] [address] Eosinophils (Bld) [#/Vol] 0.10 10*3/uL Normal 0.00 - 0.70 [facility] Comment on above: Performed By: #### C BCDF #### [address] [address] Eosinophils/100 WBC (Bld) 1.2 % Normal 0.0 - 6.0 [facility] Comment on above: Performed By: #### C BCDF #### [address] [address] Erythrocyte distribution width (RBC) [Ratio] 12.5 % Normal 11.5 - 14.5 [facility] Comment on above: Performed By: #### C BCDF #### [address] [address] Hematocrit (Bld) [Volume fraction] 40.2 % Normal 36.0 - 46.0 [facility] Comment on above: Performed By: #### C BCDF #### [address] [address] Hemoglobin (Bld) [Mass/Vol] 13.1 g/dL Normal 12.0 - 16.0 [facility] Comment on above: Performed By: #### C BCDF #### [address] [address] Lymphocytes (Bld) [#/Vol] 1.80 10*3/uL Normal 1.20 - 4.80 [facility] Comment on above: Performed By: #### C BCDF #### [address] [address] Lymphocytes/100 WBC (Bld) 31.9 % Normal 13.0 - 44.0 [facility] Comment on above: Performed By: #### C BCDF #### [address] [address] MCHC (RBC) [Mass/Vol] 32.6 g/dL Normal 32.0 - 36.0 [facility] Comment on above: Performed By: #### C BCDF #### [address] [address] MCV (RBC) [Entitic vol] 85 fL Normal 80 - 100 [facility] Comment on above: Performed By: #### C BCDF #### [address] [address] Monocytes (Bld) [#/Vol] 0.60 10*3/uL Normal 0.10 - 1.00 [facility] Comment on above: Performed By: #### C BCDF #### [address] [address] Monocytes/100 WBC (Bld) 10.3 % Normal 2.0 - 10.0 [facility] Comment on above: Performed By: #### C BCDF #### [address] [address] Neutrophils (Bld) [#/Vol] 3.20 10*3/uL Normal 1.20 - 7.70 [facility] Comment on above: Result Comment: Perc ent differential counts (%) should be interpreted in the context of the absolute cell counts (cells/L). Performed By: #### C BCDF #### [address] [address] Neutrophils/100 WBC (Bld) 56.2 % Normal 40.0 - 80.0 [facility] Comment on above: Performed By: #### C BCDF #### [address] [address] NUCLEATED RBC 0.1 /100 WBC Normal [facility] Comment on above: Performed By: #### C BCDF #### [address] [address] Platelets (Bld) [#/Vol] 282 10*3/uL Normal 150 - 450 [facility] Comment on above: Performed By: #### C BCDF #### [address] [address] RBC 4.71 x10E12/L Normal 4.00 - 5.20 [facility] Comment on above: Performed By: #### C BCDF #### [address] [address] WBC (Bld) [#/Vol] 5.8 10*3/uL Normal 4.4 - 11.3 [facility] Comment on above: Performed By: #### C BCDF #### [address] [address] COMPREHENSIVE PANELon 2021 Albumin [Mass/Vol] 4.2 g/dL Normal 3.4 - 5.0 [facility] Comment on above: Performed By: #### C MP #### [address] [address] ALP [Catalytic activity/Vol] 40 U/L Normal 33 - 110 [facility] Comment on above: Performed By: #### C MP #### [address] [address] ALT [Catalytic activity/Vol] 10 U/L Normal 7 - 45 [facility] Comment on above: Result Comment: Christina ents treated with Sulfasalazine may generate falsely decreased results for ALT. Performed By: #### C MP #### [address] [address] Anion gap [Moles/Vol] 9 mmol/L Low 10 - 20 [facility] Comment on above: Performed By: #### C MP #### [address] [address] AST [Catalytic activity/Vol] 11 U/L Normal 9 - 39 [facility] Comment on above: Performed By: #### C MP #### [address] [address] Bilirubin [Mass/Vol] 1.2 mg/dL Normal 0.0 - 1.2 [facility] Comment on above: Performed By: #### C MP #### [address] [address] Calcium [Mass/Vol] 9.3 mg/dL Normal 8.6 - 10.3 [facility] Comment on above: Performed By: #### C MP #### [address] [address] Chloride [Moles/Vol] 108 mmol/L High 98 - 107 [facility] Comment on above: Performed By: #### C MP #### [address] [address] Creatinine [Mass/Vol] 0.67 mg/dL Normal 0.50 - 1.05 [facility] Comment on above: Performed By: #### C MP #### [address] [address] eGFR FEMALE >90 Normal >90 [facility] Comment on above: Result Comment: CALC ULATIONS OF ESTIMATED GFR ARE PERFORMED USING THE 2020 CKD-EPI STUDY REFIT EQUATION WITHOUT THE RACE VARIABLE FOR THE IDMS-TRACEABLE CREATININE METHODS. https://jasn.asnjournals.org/content/early/ASN.240554 0042 Performed By: #### C MP #### [address] [address] Glucose [Mass/Vol] 92 mg/dL Normal 74 - 99 [facility] Comment on above: Performed By: #### C MP #### [address] [address] HCO3 (Bld) [Moles/Vol] 25 mmol/L Normal 21 - 32 [facility] Comment on above: Performed By: #### C MP #### [address] [address] Potassium [Moles/Vol] 4.3 mmol/L Normal 3.5 - 5.3 [facility] Comment on above: Performed By: #### C MP #### [address] [address] Protein [Mass/Vol] 6.6 g/dL Normal 6.4 - 8.2 [facility] Comment on above: Performed By: #### C MP #### [address] [address] Sodium [Moles/Vol] 138 mmol/L Normal 136 - 145 [facility] Comment on above: Performed By: #### C MP #### [address] [address] Urea nitrogen [Mass/Vol] 14 mg/dL Normal 6 - 23 [facility] Comment on above: Performed By: #### C MP #### [address] [address] Complete Blood Count + Diffamie larson 05-31-2022 Basophils/100 WBC (Bld) 0.4 % 0.0 - 2.0 [facility] Work Phone: [phone] Erythrocyte distribution width (RBC) [Ratio] 12.5 % See Below [facility] Work Phone: [phone] Comment on above: Reference Range: 11. 5 - 14.5 Hematocrit (Bld) [Volume fraction] 40.2 % See Below [facility] Work Phone: [phone] Comment on above: Reference Range: 36. 0 - 46.0 Hemoglobin (Bld) [Mass/Vol] 13.1 g/dL See Below [facility] Work Phone: [phone] Comment on above: Reference Range: 12. 0 - 16.0 Lymphocytes/100 WBC (Bld) 31.9 % See Below [facility] Work Phone: [phone] Comment on above: Reference Range: 13. 0 - 44.0 MCHC (RBC) [Mass/Vol] 32.6 g/dL See Below [facility] Work Phone: [phone] Comment on above: Reference Range: 32. 0 - 36.0 MCV (RBC) [Entitic vol] 85 fL 80 - 100 [facility] Work Phone: [phone] Monocytes/100 WBC (Bld) 10.3 % 2.0 - 10.0 [facility] Work Phone: [phone] Neutrophils/100 WBC (Bld) 56.2 % See Below [facility] Work Phone: [phone] Comment on above: Reference Range: 40. 0 - 80.0 Platelets (Bld) [#/Vol] 282 10*3/uL 150 - 450 [facility] Work Phone: [phone] RBC (Bld) [#/Vol] 4.71 {x10E12/L} See Below [facility] Work Phone: [phone] Comment on above: Reference Range: 4.0 0 - 5.20 WBC (Bld) [#/Vol] 5.8 10*3/uL 4.4 - 11.3 [facility] Work Phone: [phone] Complete Blood Count + Differential 0.00 {x10E9/L} See Below [facility] Work Phone: [phone] Comment on above: Reference Range: 0.0 0 - 0.10 Complete Blood Count + Differential 0.10 {x10E9/L} See Below [facility] Work Phone: [phone] Comment on above: Reference Range: 0.0 0 - 0.70 Complete Blood Count + Differential 0.60 {x10E9/L} See Below [facility] Work Phone: Comment on above: Reference Range: 0.1 0 - 1.00 Complete Blood Count + Differential 1.80 {x10E9/L} See Below [facility] Work Phone: [phone] Comment on above: Reference Range: 1.2 0 - 4.80 Complete Blood Count + Differential 3.20 {x10E9/L} See Below [facility] Work Phone: [phone] Comment on above: Reference Range: 1.2 0 - 7.70 Percent differential counts (%) should be interpreted in the context of the absolute cell counts (cells/L). Complete Blood Count + Differential 1.2 % 0.0 - 6.0 [facility] Work Phone: [phone] Complete Blood Count + Differential 0.1 {/100_WBC} [facility] Work Phone: [phone] FOLATE, SERUMon 05-31-2022 Folate [Mass/Vol] 13.3 ng/mL Normal >5.0 [facility] Comment on above: Result Comment: Low <3.4 Borderline 3.4-5.0 Normal >5.0 . Patients receiving more than 5 mg/day of biotin may have interference in test results. A sample should be taken no sooner than eight hours after previous dose. Contact the testing laboratory for additional information. Performed By: #### F OLA2 #### [place] [address] Folate, Serumon 05-31-2022 Folate [Mass/Vol] 13.3 ng/mL >5.0 [facility] Work Phone: Comment on above: Low <3.4Borderline 3 .4-5.0Normal >5.0. Patients receiving more than 5 mg/day of biotin may have interference in test results. A sample should be taken no sooner than eight hours after previous dose. Contact the testing laboratory for additional information. Laboratory - Chemistry and C hemistry - challengeon 05-31-2022 Albumin BCP dye [Mass/Vol] 4.2 g/dL 3.4 - 5.0 [facility] Work Phone: ALP [Catalytic activity/Vol] 40 U/L 33 - 110 [facility] Work Phone: ALT With P-5'-P [Catalytic activity/Vol] 10 U/L 7 - 45 [facility] Work Phone: Comment on above: Patients treated wit h Sulfasalazine may generate falsely decreased results for ALT. Anion gap [Moles/Vol] 9 mmol/L below low threshold 10 - 20 [facility] Work Phone: AST With P-5'-P [Catalytic activity/Vol] 11 U/L 9 - 39 [facility] Work Phone: Bilirubin [Mass/Vol] 1.2 mg/dL 0.0 - 1.2 [facility] Work Phone: Calcium [Mass/Vol] 9.3 mg/dL 8.6 - 10.3 [facility] Work Phone: Chloride [Moles/Vol] 108 mmol/L above high threshold 98 - 107 [facility] Work Phone: CO2 [Moles/Vol] 25 mmol/L 21 - 32 [facility] Work Phone: Creatinine [Mass/Vol] 0.67 mg/dL See Below [facility] Work Phone: Comment on above: Reference Range: 0.5 0 - 1.05 Glucose [Mass/Vol] 92 mg/dL 74 - 99 [facility] Work Phone: Potassium [Moles/Vol] 4.3 mmol/L 3.5 - 5.3 [facility] Work Phone: Protein [Mass/Vol] 6.6 g/dL 6.4 - 8.2 [facility] Work Phone: [phone] Sodium [Moles/Vol] 138 mmol/L 136 - 145 [facility] Work Phone: TSH Qn 1.57 m[IU]/L See Below [facility] Work Phone: Comment on above: Reference Range: 0.4 4 - 3.98 TSH testing is performed using different testing methodology at [facility] than at other [facility]. Direct result comparisons should only be made within the same method. Urea nitrogen [Mass/Vol] 14 mg/dL 6 - 23 [facility] Work Phone: No Panel Informationon 05-31 >90 >90 [facility] Work Phone: Comment on above: CALCULATIONS OF UMBERTO MATED GFR ARE PERFORMED USING THE 2020 CKD-EPI STUDY REFIT EQUATION WITHOUT THE RACE VARIABLE FOR THE IDMS-TRACEABLE CREATININE METHODS.https://jasn.asnjournals.org/content/early// N.0600091350 [facility] Follow-up visit Diagnoses/Problems Numbness and tingling (782.0) (R20.0,R20.2) History of Miscarriage at 8 to 28 weeks gestation (634.90) (O03.9) Encounter for preventive health examination (V70.0) (Z00.00) Vitamin B12 deficiency (266.2) (E53.8) Vitamin D deficiency (268.9) (E55.9) Orders Numbness and tingling Folate, Serum; Status:Complete; Done: 31May2022 09:36AM TSH WITH REFLEX TO FREE T4 IF ABNORMAL; Status:Complete; Done: 31May2022 09:36AM Vitamin B12, Serum; Status:Complete; Done: 31May2022 09:36AM Vitamin D 25-Hydroxy; Status:Complete; Done: 31May2022 09:36AM Numbness and tingling, Vitamin B12 deficiency, Vitamin D deficiency Follow-up visit in 3 months Outpatient Follow-up Status: Hold For - Scheduling Requested for: 01Jun2022 PMH: Encounter for preventive health examination Gynecology Referral Evaluation and Treatment Evaluate AND Treat Status: Complete Done: 31May[address] BUI. OFFICE ADDRESS: [address] [facility] PHONE #: [phone] APPT IS 07/03 @ 8:30AM Records in chart. Patient notified via phone, mail or at appt in office. AMA Intake Activity Log Entry by CMS ACCOUNT (INTRANET) on 2022-05-31 09:29 Status Change : Confirmed - SMN Module AMA Intake updated by [facility] ACCOUNT (INTRANET) on 2022-05-31 09:29 New Recipient: David Bui Appointment Date: 2022-07-03 08:30 Complete Blood Count + Differential; Status:Complete; Done: 31May2022 09:36AM Comprehensive Metabolic Panel; Status:Complete; Done: 31May2022 09:36AM Urinalysis; Status:Complete; Done: 31May2022 09:36AM SocHx: Never smoker Tobacco Use Screening; Status:Complete; Done: 31May2022 Vitamin D deficiency Start: Vitamin D (Ergocalciferol) 1.25 MG (00306 UT) Oral Capsule; TAKE 1 CAPSULE ONE TIME A WEEK Provider Impressions Numbness and tingling: Will obtain lab fro CBC, CMP, TSH, Folate, B12, and vitamin D, Concerned for vitamin deficiency. Instructed to continue taking vitamin daily. History of miscarriage times 2: recommend she see OBGYN, referral made. Instructed to avoid until she see UTILIZATION ENGINEER. 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 History of Present Illness Tyler is a 26 yo female here today to establish care. has had 2 miscarriages, 1 at 13 weeks in 01/06, and 1 at 10 weeks in 03/2022 has not seen a UTILIZATION ENGINEER in past other than at ER Has seen Dr Davila in past at [facility], likely more than 2 years ago. No previous PCP Did have labs done at [facility] on 03/20/2022 which were unremarkable, she went in for 1st ultrasound, no heart tones were found, she then spontaneously miscarried on 04/07/22. Normal period on 04/11/2022 complains of numbness and tingling to feet and hands, tongue and lips Tingling started in feet about 1 months ago after miscarriage, then hands and lips/tongue Did have this in the same issue about 1 year ago for [address] miscarriage. 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 She does reports feeling stressed related to her job and is not eating as often as she should. She is , just purchased a new home with her and is currently not using any contraception. Review of Systems Constitutional: no chills, no fever and no night sweats. Eyes: no blurred vision and no eyesight problems . glasses. ENT: as noted in HPI, no hearing loss, no nasal congestion, no nasal discharge, no hoarseness and no sore throat . tingling to lip/tongue. Neck: no mass(es) and no swelling. Cardiovascular: no chest pain, no intermittent leg claudication, no lower extremity edema, no palpitations and no syncope. Respiratory: no cough, no shortness of breath during exertion, no shortness of breath at rest and no wheezing. Gastrointestinal: nausea, but no abdominal pain, no blood in stools, no constipation, no diarrhea, no melena, no rectal pain and no vomiting. Genitourinary: no dysuria, no change in urinary frequency, no urinary hesitancy, no feelings of urinary urgency and no vaginal discharge . odor to urine. Musculoskeletal: no arthralgias, no back pain and no myalgias. Integumentary: no new skin lesions and no rashes. Neurological: numbness and tingling, but no difficulty walking, no headache and no limb weakness. Psychiatric: no anxiety, no depression, no anhedonia and no substance use disorders. Endocrine: no changes in appetite, no recent weight gain and no recent weight loss. Hematologic/Lymphatic: no tendency for easy bleeding and no tendency for easy bruising. Past Medical History History of Miscarriage at 8 to 28 weeks gestation (634.90) (O03.9) Surgical History History of Tonsillectomy Family History Family history of Enlarged aorta Family history of anemia (V18.2) (Z83.2) Family history of hypotension (V17.49) (Z82.49) No pertinent family history Social History Does not (more content not included)... Normal [employer] TSH WITH REFLEX TO FREE T4 I F ABNORMALon 05-31-2022 TSH Qn 1.57 m[IU]/L Normal 0.44 - 3.98 [facility] Comment on above: Result Comment: TSH testing is performed using different testing methodology at [facility] than at other [facility]. Direct result comparisons should only be made within the same method. Performed By: #### T HYDS #### [address] [address] Tobacco Screening.on 022 Tobacco use status CPHS b) No [facility] Work Phone: URINALYSISon 05-31-2022 Appearance (U) CLEAR Normal CLEAR [facility] Comment on above: Performed By: #### U A #### [address] [address] Bilirubin Ql (U) Negative Normal NEGATIVE [facility] Comment on above: Performed By: #### U A #### [address] [address] Color (U) Yellow Normal STRAW,YELLOW [facility] Comment on above: Performed By: #### U A #### [address] [address] Glucose Ql (U) Negative Normal NEGATIVE [facility] Comment on above: Performed By: #### U A #### [address] [address] Hemoglobin Ql (U) Negative Normal NEGATIVE [facility] Comment on above: Performed By: #### U A #### [address] [address] Ketones Ql (U) Negative Normal NEGATIVE [facility] Comment on above: Performed By: #### U A #### [address] [address] Leukocyte esterase Test strip Ql (U) Negative Normal NEGATIVE [facility] Comment on above: Performed By: #### U A #### [address] [address] Nitrite Ql (U) Negative Normal NEGATIVE [facility] Comment on above: Performed By: #### U A #### [address] [address] pH (U) 8.0 [pH] Normal 5.0 - 8.0 [facility] Comment on above: Performed By: #### U A #### [address] [address] Protein Ql (U) Negative Normal NEGATIVE [facility] Comment on above: Performed By: #### U A #### [address] [address] Specific gravity (U) [Rel density] 1.017 Normal 1.005 - 1.035 [facility] Comment on above: Performed By: #### U A #### [address] [address] Urobilinogen (U) [Mass/Vol] mg/dL Normal 0.0 - 1.9 [facility] Comment on above: Performed By: #### U A #### [address] [address] Urinalysison 05-31-2022 Color (U) Yellow See Below [facility] Work Phone: [phone] Comment on above: Reference Range: STR AW,YELLOW Glucose Ql (U) Negative NEGATIVE [facility] Work Phone: [phone] Ketones Ql (U) Negative NEGATIVE [facility] Work Phone: [phone] Leukocyte esterase Test strip Ql (U) Negative NEGATIVE [facility] Work Phone: [phone] pH (U) 8.0 [pH] 5.0 - 8.0 [facility] Work Phone: [phone] Protein (U) [Mass/Vol] Negative NEGATIVE [facility] Work Phone: [phone] RBC (U) [#/Vol] Negative NEGATIVE [facility] Work Phone: [phone] Specific gravity (U) [Rel density] 1.017 1 See Below [facility] Work Phone: [phone] Comment on above: Reference Range: 1.0 05 - 1.035 Urinalysis Negative NEGATIVE [facility] Work Phone: [phone] Urinalysis <2.0 0.0 - 1.9 [facility] Work Phone: Urinalysis CLEAR CLEAR [facility] Work Phone: [phone] VITAMIN B12on 05-31-2022 Cobalamin (Vitamin B12) [Mass/Vol] 183 pg/mL Low 211 - 911 [facility] Comment on above: Performed By: #### V TB12 #### [address] [address] VITAMIN D, 25-HYDROXYon 05-19 VITAMIN D, 25-HYDROXY 17 ng/mL Abnormal [facility] Comment on above: Result Comment: . DEFICIENCY: < 20 NG/ML INSUFFICIENCY: 20-29 NG/ML SUFFICIENCY: 30-100 NG/ML THIS ASSAY ACCURATELY QUANTIFIES THE SUM OF VITAMIN D3, 25-HYDROXY AND VIT D2,25-HYDROXY. Performed By: #### V TDOH #### [address] [address] Vitamin B12, Serumon 022 Cobalamin (Vitamin B12) [Mass/Vol] 183 pg/mL below low threshold 211 - 911 [facility] Work Phone: [phone] Vitamin D 25-Hydroxyon 05-31 25-hydroxyvitamin D3 [Mass/Vol] 17 ng/mL Abnormal [facility] Work Phone: [phone] Comment on above: .DEFICIENCY: < 20 NG /MLINSUFFICIENCY: 20-29 NG/MLSUFFICIENCY: 30-100 NG/MLTHIS ASSAY ACCURATELY QUANTIFIES THE SUM OFVITAMIN D3, 25-HYDROXY AND VIT D2,25-HYDROXY. ABO/RH GROUP TESTon 12-19-19 21 ABO TYPE B Normal [facility] Comment on above: Performed By: #### A ELVIN #### [address] [address] RH TYPE Positive Normal [facility] Comment on above: Performed By: #### A ELVIN #### [address] [address] CBC AND DIFFERENTIALon 12-18 Basophils (Bld) [#/Vol] 0.10 10*3/uL Normal 0.00 - 0.10 [facility] Comment on above: Performed By: #### C BCDF #### [address] [address] Basophils/100 WBC (Bld) 0.7 % Normal 0.0 - 2.0 [facility] Comment on above: Performed By: #### C BCDF #### [address] [address] Eosinophils (Bld) [#/Vol] 0.00 10*3/uL Normal 0.00 - 0.70 [facility] Comment on above: Performed By: #### C BCDF #### [address] [address] Eosinophils/100 WBC (Bld) 0.3 % Normal 0.0 - 6.0 [facility] Comment on above: Performed By: #### C BCDF #### [address] [address] Erythrocyte distribution width (RBC) [Ratio] 12.9 % Normal 11.5 - 14.5 [facility] Comment on above: Performed By: #### C BCDF #### [address] [address] Hematocrit (Bld) [Volume fraction] 37.2 % Normal 36.0 - 46.0 [facility] Comment on above: Performed By: #### C BCDF #### [address] [address] Hemoglobin (Bld) [Mass/Vol] 12.2 g/dL Normal 12.0 - 16.0 [facility] Comment on above: Performed By: #### C BCDF #### [address] [address] Lymphocytes (Bld) [#/Vol] 2.20 10*3/uL Normal 1.20 - 4.80 [facility] Comment on above: Performed By: #### C BCDF #### [address] [address] Lymphocytes/100 WBC (Bld) 15.7 % Normal 13.0 - 44.0 [facility] Comment on above: Performed By: #### C BCDF #### [address] [address] MCHC (RBC) [Mass/Vol] 32.8 g/dL Normal 32.0 - 36.0 [facility] Comment on above: Performed By: #### C BCDF #### [address] [address] MCV (RBC) [Entitic vol] 86 fL Normal 80 - 100 [facility] Comment on above: Performed By: #### C BCDF #### [address] [address] Monocytes (Bld) [#/Vol] 1.10 10*3/uL High 0.10 - 1.00 [facility] Comment on above: Performed By: #### C BCDF #### [address] [address] Monocytes/100 WBC (Bld) 7.9 % Normal 2.0 - 10.0 [facility] Comment on above: Performed By: #### C BCDF #### [address] [address] Neutrophils (Bld) [#/Vol] 10.70 10*3/uL High 1.20 - 7.70 [facility] Comment on above: Result Comment: Perc ent differential counts (%) should be interpreted in the context of the absolute cell counts (cells/L). Performed By: #### C BCDF #### [address] [address] Neutrophils/100 WBC (Bld) 75.4 % Normal 40.0 - 80.0 [facility] Comment on above: Performed By: #### C BCDF #### [address] [address] Platelets (Bld) [#/Vol] 270 10*3/uL Normal 150 - 450 [facility] Comment on above: Performed By: #### C BCDF #### [address] [address] RBC 4.34 x10E12/L Normal 4.00 - 5.20 [facility] Comment on above: Performed By: #### C BCDF #### [address] [address] WBC (Bld) [#/Vol] 14.2 10*3/uL High 4.4 - 11.3 [facility] Comment on above: Performed By: #### C BCDF #### [place] [address] COMPREHENSIVE PANELon 2020 Albumin [Mass/Vol] 3.9 g/dL Normal 3.4 - 5.0 [facility] Comment on above: Performed By: #### C MP #### [address] [address] ALP [Catalytic activity/Vol] 49 U/L Normal 33 - 110 [facility] Comment on above: Performed By: #### C MP #### [address] [address] ALT [Catalytic activity/Vol] 7 U/L Normal 7 - 45 [facility] Comment on above: Result Comment: Christina ents treated with Sulfasalazine may generate falsely decreased results for ALT. Performed By: #### C MP #### [address] [address] Anion gap [Moles/Vol] 12 mmol/L Normal 10 - 20 [facility] Comment on above: Performed By: #### C MP #### [address] [address] AST [Catalytic activity/Vol] 11 U/L Normal 9 - 39 [facility] Comment on above: Performed By: #### C MP #### [address] [address] Bilirubin [Mass/Vol] 0.8 mg/dL Normal 0.0 - 1.2 [facility] Comment on above: Performed By: #### C MP #### [address] [address] Calcium [Mass/Vol] 9.1 mg/dL Normal 8.6 - 10.3 [facility] Comment on above: Performed By: #### C MP #### [place] [address] Chloride [Moles/Vol] 105 mmol/L Normal 98 - 107 [facility] Comment on above: Performed By: #### C MP #### [address] [address] Creatinine [Mass/Vol] 0.54 mg/dL Normal 0.50 - 1.05 [facility] Comment on above: Performed By: #### C MP #### [place] [id number] GFR- AM. >60 Normal >60 [facility] Comment on above: Result Comment: CALC ULATIONS OF ESTIMATED GFR ARE PERFORMED USING THE MDRD STUDY EQUATION FOR THE IDMS-TRACEABLE CREATININE METHODS. CLIN CHEM 2007;53:766-72 Performed By: #### C MP #### [address] [address] GFR-NON AM. >60 Normal >60 [facility] Comment on above: Performed By: #### C MP #### [address] [address] Glucose [Mass/Vol] 105 mg/dL High 74 - 99 [facility] Comment on above: Performed By: #### C MP #### [address] [address] HCO3 (Bld) [Moles/Vol] 21 mmol/L Normal 21 - 32 [facility] Comment on above: Performed By: #### C MP #### [address] [address] Potassium [Moles/Vol] 3.8 mmol/L Normal 3.5 - 5.3 [facility] Comment on above: Performed By: #### C MP #### [address] [address] Protein [Mass/Vol] 6.5 g/dL Normal 6.4 - 8.2 [facility] Comment on above: Performed By: #### C MP #### [address] [address] Sodium [Moles/Vol] 134 mmol/L Low 136 - 145 [facility] Comment on above: Performed By: #### C MP #### [place] [address] [place] [address] Urea nitrogen [Mass/Vol] 9 mg/dL Normal 6 - 23 [facility] Comment on above: Performed By: #### C MP #### [address] [address] Consult-Gynecology/Obstetric son 12-18-2020 Consult-Gynecology/Ob [facility] Service: Service: Gynecology/Obstetrics Consult: Consult requested by (Attending Name): Dr. Monsivais Reason: incomplete AB History of Present Illness: HPI: TYLER CORDERO is a 25 year old Female at approximately 18 weeks by unsure LMP presented to the ED for worsening bleeding. Patient notes yesterday morning she woke up with bleeding which progress all the day into large clots was brought her into the ED last night. Denies any lightheaded or dizziness. Patient on return so she did not seek care. No problems prior to last couple days. In ED patient passed and approximately 16 weeks gestation 18 fetus with majority of the placenta per the ED provider. He was unsure that he completely got the placenta as there was still some purplish tissue at the cervical os 1 to me come in for evaluation PMH:anxiety/depression PSH:denies All:NKDA Meds:cymbalta and OTC Fe. PNV Social:Denies FMH:Denies breast ca OB Hx SAB x1 Constitutional: No fevers, chills Eye:no vision changes Respiratory: no SOB Cardiovascular: no chest pain Gastrointestinal: No nausea, vomiting, diarrhea, constipation. + abdominal pain Genitourinary:no dysuria Gynecology: See HPI Musculoskeletal: No decreased ROM Skin:No rash Neurologic: No numbness tingling Psychiatric: anxiety All other: all other systems reviewed and negative for complaint Allergies: No Known Allergies: Objective: Objective Information: T PRBPSpO2 [id number]/7396% Date/Time52 0:305/2 3:165/2 3:165/2 3:165/2 3:16 Range(36.4C - 36.4C ) (60 - 74 ) (16 - 18 ) (118 - 131 )/ (73 - 93 ) (96% - 99% ) Physical Exam by System: Constitutional: Well developed, awake/alert/oriented x3, no distress, alert and cooperative Eyes: PERRL, EOMI, clear sclera Respiratory/Thorax: Nonlabored Cardiovascular: Regular rate Gastrointestinal: Soft nondistended uterus firm 3 below umbilicus Extremities: Negative calf pain Skin: Warm and dry, no lesions, no rashes Recent Lab Results: Results: I have reviewed these laboratory results: Complete Blood Count + Differential 18-Dec-2020 00:46:00 ResultValue White Blood Cell Count 14.2 H Red Blood Cell Count 4.34 HGB 12.2 HCT 37.2 MCV 86 MCHC 32.8 PLT 270 RDW-CV 12.9 Neutrophil % 75.4 Lymphocyte % 15.7 Monocyte % 7.9 Eosinophil % 0.3 Basophil % 0.7 Neutrophil Count 10.70 H Lymphocyte Count 2.20 Monocyte Count 1.10 H Eosinophil Count 0.00 Basophil Count 0.10 Comprehensive Metabolic Panel 18-Dec-2020 00:46:00 ResultValue Glucose, Serum 105 H NA 134 L K 3.8 CL 105 Bicarbonate, Serum 21 Anion Gap, Serum 12 BUN 9 CREAT 0.54 GFR-Non >60 GFR- >60 Calcium, Serum 9.1 ALB 3.9 ALKP 49 T Pro 6.5 T Bili 0.8 Alanine Aminotransferase, Serum 7 Aspartate Transaminase, Serum 11 Radiology Results: Results: Impression: Limited transabdominal ultrasound. Bicornuate or septate uterus. No evidence of retained products of conception. A short-term follow-up ultrasound with transvaginal scanning may be considered if there is persistent concern for retained products. Ultrasound Pelvis, Uterus and Ovaries [Dec 18 2020 2:39AM] Assessment: 1)HOLLEY-I was called to evaluate patient possible retained products. First examined the fetus and placenta pathology in the lab as the specimen was located there. I looked and there was one potential cotyledon missing on placenta, ~16 week fetus. I reviewed the imaging in PACS which were suboptimal pictures did not really evaluate the uterine cavity of the lower well, but did not show vascularity. I repeated a bedside ultrasound which showed a little bit of tissue in the lower segment but no vascularity was noted. Of note there was a potential arcuate uterus versus small bicornuate. Patient was aware of this, discussed this potential role increase in delivery. Regardless the ED provider was concerned for some tissue at the cervical os that he was unable to get out. I reviewed performed a pelvic exam in the ED which noted mild amount of tissue in the vaginal vault as well as the lower uterine segment which was removed with ring forceps. Patient tolerated the procedure well and scant bleeding was noted after. Given the amount of tissue removed this is likely missing cotyledon, though cannot completely exclude as it came out in small pieces. Discussed late teen second trimester loss. Reviewed potential causes. Discussed outpatient follow-up and potential need for APLS work-up. Had discussion about the benefits and cost of genetic testing. Patient and declined. Recommend follow-up and potentially hCG in a week or 2 to confirm everything passed. Bleeding precautions reviewed as overall I felt clinically I had gotten all the pieces of the placenta out but counseled about potentially missing someth (more content not included)... Normal [facility] Provider Note - ED v2on 05-0 Provider Note - ED v2 Provider Note - ED v2: Chart Review: ED NOTES ED NOTES: 25-year-old female 2 para 1 presents with vaginal bleeding and severe suprapubic cramping and pain. Patient states vaginal bleeding started this morning. Pain intensified around 4:00 and she is in moderate pain upon presentation. Patient states she has had no care. While here in the emergency department patient did expel products of conception. Patient states her last period was sometime in June. Patient had an IV established and will be given 25 mcg of fentanyl for pain. The patient did report a fetus while here in the department after being here for short period of time. Patient symptoms have significantly improved post . Patient has some residual discomfort but very minimal bleeding. The products and fetus were sent to the lab per protocol. Dr. Belcher was kind enough to come in and see the patient. He was able to remove the retained products here in the ED. Patient will be discharged in improved and stable condition and follow-up with him in the office. HISTORY OF PRESENTING ILLNESS TYLER is a 25 year old Female and was seen by me at 18-Dec-2020 00:25 for a chief complaint of pelvic pain (Patient states suspected miscarriage today at 0800, began having pelvic pain at 1630, has been mildly bleeding all day with clots. 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 The historian is the patient. Triage Information: Most recent Vital Sign Value Date Temp (F): 97.5 12-18-2020 00:30 Temp (C): 36.4 12-18-2020 00:30 Heart Rate (beats/min): 74 12-18-2020 00:30 Respirations (breaths/min): 18 12-18-2020 00:30 SpO2 (%): 99 12-18-2020 00:30 BP Systolic (mm Hg): 118 12-18-2020 00:30 BP Diastolic (mm Hg): 90 12-18-2020 00:30 PAST MEDICAL HISTORY ATTESTATION: I have reviewed and confirmed nurse's/medic's notes for patient's medications, allergies, and medical, surgical, family and social history ALLERGIES/INTOLERANCES: No Known Allergies HEALTH HISTORY: No documented data. OUTPATIENT MEDICATIONS: Home Medications Review Status for Reconciliation: N/A Med Status: Patient Currently Takes Medications Drug Name: Cymbalta 60 mg oral delayed release capsule Instructions: 1 cap(s) orally once a day SIGNIFICANT EVENTS: Past Surgical History Description:NONE DRAFTER: Is : yes(1) Is : no(1) REVIEW OF SYSTEMS GASTROINTESTINAL: POSITIVE for: abdominal pain and nausea; GENITOURINARY: POSITIVE for: vaginal bleeding; All other systems reviewed and are negative RESULTS/VITAL SIGNS RESULTS: Recent Lab Results: I have reviewed these laboratory results: Complete Blood Count + Differential 18-Dec-2020 00:46:00 ResultValue White Blood Cell Count 14.2 H Red Blood Cell Count 4.34 HGB 12.2 HCT 37.2 MCV 86 MCHC 32.8 PLT 270 RDW-CV 12.9 Neutrophil % 75.4 Lymphocyte % 15.7 Monocyte % 7.9 Eosinophil % 0.3 Basophil % 0.7 Neutrophil Count 10.70 H Lymphocyte Count 2.20 Monocyte Count 1.10 H Eosinophil Count 0.00 Basophil Count 0.10 Comprehensive Metabolic Panel 18-Dec-2020 00:46:00 ResultValue Glucose, Serum 105 H NA 134 L K 3.8 CL 105 Bicarbonate, Serum 21 Anion Gap, Serum 12 BUN 9 CREAT 0.54 GFR-Non >60 GFR- >60 Calcium, Serum 9.1 ALB 3.9 ALKP 49 T Pro 6.5 T Bili 0.8 Alanine Aminotransferase, Serum 7 Aspartate Transaminase, Serum 11 Radiology Results: Impression: Limited transabdominal ultrasound. Bicornuate or septate uterus. No evidence of retained products of conception. A short-term follow-up ultrasound with transvaginal scanning may be considered if there is persistent concern for retained products. Ultrasound Pelvis, Uterus and Ovaries [Dec 18 2020 2:39AM] VITAL SIGNS: T PRBP SpO2O2(LPM) %FiO2 Method 18-Dec-2020 01:00:[id number] 97 room air, no respiratory support 18-Dec-2020 00:30:[id number] 99 PHYSICAL EXAM CONSTITUTIONAL: Well appearing, well nourished, awake, alert, oriented to person, place, time/situation and in mild to moderate apparent distress. HENMT: Airway patent, ears with clear tympanic membranes bilaterally. Nasal mucosa clear. Mouth with normal mucosa. Throat has no vesicles, no oropharyngeal exudates and uvula is midline. Face with no lymph node enlargement. EYES: Clear bilaterally, pupils equal, round and reactive to light. CARDIOVASCULAR: Normal rate, regular rhythm. Heart sounds S1, S2. No murmurs, rubs or gallops. PMI non-displaced. RESPIRATORY: Breath sounds clear and equal bilaterally. GASTROINTESTINAL: Abdomen soft, non-distended, no rebound, no guarding. Bowel sounds normal in all 4 quadrants. GENITOURINARY: No discharge, no lesions. Pelvic exam shows blood in the vaginal vault. Retained products are present. Cervical os is only minimally dilated. MUSCULOSKELETA (more content not included)... Normal [facility] Triage - EDon 12-18-2020 Triage - ED Quick Triage: Are You yes Have You Given In The Last 6 Weeksno Are You Currently Breastfeedingno The patient and/or guardian verbally acknowledges placement for services into the following (when Urgent Care Service hours are operating):emergency department Chart Review: ARRIVAL INFORMATION Mode of Arrival: private vehicle CHIEF COMPLAINT TYLER CORDERO is a Female patient with a chief complaint of pelvic pain (Patient states suspected miscarriage today at 0800, began having pelvic pain at 1630, has been mildly bleeding all day with clots. 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 Triage Date/Time: 18-Dec-2020 00:30 OLIVER: 3 Pain Rating (0-10): 8 = Severe Pain location: pelvic area Vital Signs: Temperature: 97.5F ( 36.4C) Blood Pressure: 118/90 Mean: Heart Rate: 74 Respiratory Rate: 18 Pulse Oximetry: 99% Height: 5 feet 10 inches. 177.8 CM Weight: 180.3 pounds. Calculated 81.8 kg. Calculated BMI (kg/m2): 25.875 Calculated BSA (m2) 2.01 Jean Coma Scale: Best Eye Response: (E4) spontaneous Best Motor Response: (M6) obeys commands Best Verbal Response: (V5) oriented Bergheim Score: 15 Cough lasting greater than 3 weeks: no Allergies: no Mask applied: no Last menstrual period: 03-Jul-2020 DRAFTER History: Patient has homicidal thoughts: no Risk Screens Suicide Risk Screen In the Past Month: Have you wished you were or wished you could go to sleep and not wake up no In the Past Month: Have you had any actual thoughts of killing yourself no In Your Lifetime: Have you ever done anything, started to do anything, or prepared to do anything to end your life no Burch Fall Scale Screening Has the patient fallen before (or is the patient in the ED as a result of a fall) has not had a fall Does the patient have an impaired gait does not have impaired gait Is the patient cognitively impaired not cognitively impaired Interventions: Kiersten Fall Interventions: LOW INTERVENTIONS: *patient oriented to surroundings and call system, * patient/family falls education completed and documented, *patients fall status communicated during bedside handoff, *whiteboard updated, *mode of toileting discussed with patient, *bed in low position with brakes locked, *call light in reach, * non-skid footwear TRAVEL HISTORY Travel History Coronavirus Screening: no exposure or symptoms PAIN Pain Scale Used: JOE Pain Rating (0-10): 8 = Severe Past Medical History: Past Medical History Reviewedyes Electronic Signatures: Josue Cowart (LEONIE) (Signed 18-Dec-2020 00:36) Entered: Risk Screens, Pain, Chart Review, Scores, Past Medical History Authored: Quick Triage, Risk Screens, Pain, Chart Review, Scores, Past Medical History Last Updated: 18-Dec-2020 00:36 by Josue Cowart) [facility] PELVISon 12-18-2020 US PELVIS Patient Name: TYLER CORDERO STUDY: US PELVIS; 12/18/2020 2:22 am INDICATION: stable. Recent miscarriage. Check for retained products of conception. COMPARISON: None. ACCESSION NUMBER(S): [id number] ORDERING CLINICIAN: MAURA MONSIVAIS TECHNIQUE: Transabdominal sonographic images of the pelvis. Spectral Doppler imaging. FINDINGS: UTERUS: The uterus measures 17.9 x 6.2 x 7.5 cm. Reportedly the patient has a uterine anatomic variant thought to be bicornuate uterus. There is divergence of the endometrium best seen on the transverse clip, consistent with either a bicornuate or septate uterus. ENDOMETRIUM: Normal thickness, up to 16 mm. There is mild heterogeneity of the endometrium, with no significant internal vascularity. RIGHT OVARY: Limited visualization. The right ovary measures approximately 2.8 x 2 x 2.5 cm. Arterial and venous flow present. LEFT OVARY: Limited visualization. The left ovary measures approximately 2.2 x 2.7 x 2.6 cm. Arterial and venous flow present. CUL DE SAC: No free-fluid. IMPRESSION: Limited transabdominal ultrasound. Bicornuate or septate uterus. No evidence of retained products of conception. A short-term follow-up ultrasound with transvaginal scanning may be considered if there is persistent concern for retained products. Electronically signed by: DEVONTE VACA MD [facility] Vital Signs Date Time Vital Sign Value Performing Clinician Facility 09-15-2024 13:43-0500 Body height 177.8 cm Maria Teresa Eaton MD Work Phone: [facility] 09-15-2024 13:43-0500 Body mass index (BMI) [Ratio] 24.48 kg/m2 Maria Teresa Eaton MD Work Phone: [facility] 09-15-2024 13:43-0500 Body weight 77.4 kg Maria Teresa Eaton MD Work Phone: [facility] 09-15-2024 13:43-0500 Diastolic blood pressure 77 mm[Hg] Maria Teresa Eaton MD Work Phone: [facility] 09-15-2024 13:43-0500 Heart rate 68 /min Maria Teresa Eaton MD Work Phone: [facility] 09-15-2024 13:43-0500 Systolic blood pressure 119 mm[Hg] Maria Teresa Eaton MD Work Phone: [facility] 07-13-2024 14:30-0500 Body temperature 97.81 [degF] Infusion 5 Work Phone: [facility] 07-13-2024 14:30-0500 Diastolic blood pressure 52 mm[Hg] Infusion 5 Work Phone: [facility] 07-13-2024 14:30-0500 Heart rate 90 /min Infusion 5 Work Phone: [facility] 07-13-2024 14:30-0500 Systolic blood pressure 106 mm[Hg] Infusion 5 Work Phone: [facility] 06-29-2024 14:20-0500 Body temperature 98.91 [degF] Infusion 9 Work Phone: [facility] 06-29-2024 14:20-0500 Diastolic blood pressure 49 mm[Hg] Infusion 9 Work Phone: [facility] 06-29-2024 14:20-0500 Heart rate 77 /min Infusion 9 Work Phone: [facility] 06-29-2024 14:20-0500 Systolic blood pressure 111 mm[Hg] Infusion 9 Work Phone: [facility] 06-29-2024 10:05-0500 Body height 177.8 cm Infusion 9 Work Phone: [facility] 05-26-2024 07:53-0400 Body height 177.8 cm Maria Teresa Eaton MD Work Phone: [facility] 05-26-2024 07:53-0400 Body mass index (BMI) [Ratio] 27.11 kg/m2 Maria Teresa Eaton MD Work Phone: [facility] 05-26-2024 07:53-0400 Body weight 85.7 kg Maria Teresa Eaton MD Work Phone: [facility] 05-26-2024 07:53-0400 Diastolic blood pressure 81 mm[Hg] Maria Teresa Eaton MD Work Phone: [facility] 05-26-2024 07:53-0400 Heart rate 61 /min Maria Teresa Eaton MD Work Phone: [facility] 05-26-2024 07:53-0400 SaO2% (BldA) [Mass fraction] 100 % Maria Teresa Eaton MD Work Phone: [facility] 05-26-2024 07:53-0400 Systolic blood pressure 126 mm[Hg] Maria Teresa Eaton MD Work Phone: [facility] 05-14-2024 15:21-0400 Body height 180.3 cm Vinod Gray MD Work Phone: [facility] 05-14-2024 15:21-0400 Body mass index (BMI) [Ratio] 26.01 kg/m2 Vinod Gray MD Work Phone: [facility] 05-14-2024 15:21-0400 Body temperature 97.81 [degF] Vinod Gray MD Work Phone: [facility] 05-14-2024 15:21-0400 Body weight 84.6 kg Vinod Gray MD Work Phone: [facility] 05-14-2024 15:21-0400 Diastolic blood pressure 79 mm[Hg] Vinod Gray MD Work Phone: [facility] 05-14-2024 15:21-0400 Heart rate 71 /min Vinod Gray MD Work Phone: [facility] 05-14-2024 15:21-0400 SaO2% (BldA) [Mass fraction] 100 % Vinod Gray MD Work Phone: [facility] 05-14-2024 15:21-0400 Systolic blood pressure 130 mm[Hg] Vinod Gray MD Work Phone: [facility] 04-02-2024 08:37-0400 Body height 180.3 cm Vinod Gray MD Work Phone: [facility] 04-02-2024 08:37-0400 Body mass index (BMI) [Ratio] 26.14 kg/m2 Vinod Gray MD Work Phone: [facility] 04-02-2024 08:37-0400 Body temperature 99.19 [degF] Vinod Gray MD Work Phone: [facility] 04-02-2024 08:37-0400 Body weight 85 kg Vinod Gray MD Work Phone: [facility] 04-02-2024 08:37-0400 Diastolic blood pressure 88 mm[Hg] Vinod Grya MD Work Phone: [facility] 04-02-2024 08:37-0400 Heart rate 89 /min Vinod Gray MD Work Phone: [facility] 04-02-2024 08:37-0400 SaO2% (BldA) [Mass fraction] 100 % Vinod Gray MD Work Phone: [facility] 04-02-2024 08:37-0400 Systolic blood pressure 138 mm[Hg] Vinod Gray MD Work Phone: [facility] 01-30-2024 07:42-0400 Body height 180.3 cm [facility] Comment on above: patient reported 01-30-2024 07:42-0400 Body mass index (BMI) [Ratio] 25.8 kg/m2 [facility] 01-30-2024 07:42-0400 Body weight 83.92 kg [facility] Comment on above: patient reported 01-30-2024 07:42-0400 Heart rate 72 /min [facility] Comment on above: patient counted 12-13-2023 13:08-0400 Body weight 83.83 kg Lopez Alexander DO Work Phone: [facility] 12-13-2023 13:08-0400 Diastolic blood pressure 84 mm[Hg] Lopez Alexander DO Work Phone: [facility] 12-13-2023 13:08-0400 Heart rate 84 /min Lopez Falls DO Work Phone: [facility] 12-13-2023 13:08-0400 Systolic blood pressure 143 mm[Hg] Lopez Falls DO Work Phone: [facility] 10-07-2023 15:47-0500 Body height 180.34 cm JOSHMAYA ARTHUR [facility] 10-07-2023 15:47-0500 Body mass index (BMI) [Ratio] 26 kg/m2 JOSH [facility] 10-07-2023 15:47-0500 [facility] 15:47-0500 Diastolic blood pressure 79 mm[Hg] JOSH [facility] 10-07-2023 15:47-0500 Systolic blood pressure 117 mm[Hg] JOSH [facility] 06-19-2023 08:05-0400 Body height 180.3 cm Josh Arthur [employer] Work Phone: [facility] 06-19-2023 08:05-0400 Body mass index (BMI) [Ratio] 25.65 kg/m2 Josh Arthur [employer] Work Phone: [facility] 06-19-2023 08:05-0400 Body weight 83.42 kg Josh Arthur [employer] Work Phone: [facility] 06-19-2023 08:05-0400 Diastolic blood pressure 70 mm[Hg] Josh Arthur [employer] Work Phone: [facility] 06-19-2023 08:05-0400 Heart rate 91 /min Josh Arthur [employer] Work Phone: [facility] 06-19-2023 08:05-0400 Systolic blood pressure 118 mm[Hg] Josh Arthur [employer] Work Phone: [facility] 07-03-2022 08:36-0500 Body height 180.34 cm Josh L Jerson Work Phone: [facility] Work Phone: 07-03-2022 08:36-0500 Body mass index (BMI) [Ratio] 25.55 kg/m2 Josh L Kulpmont Work Phone: [facility] Work Phone: 07-03-2022 08:36-0500 Body surface area Derived from formula 2.03 m2 Josh L Kulpmont Work Phone: [facility] Work Phone: 07-03-2022 08:36-0500 Body weight 83.1 kg Josh L Jerson Work Phone: [facility] Work Phone: 07-03-2022 08:36-0500 Diastolic blood pressure 68 mm[Hg] Josh L Jerson Work Phone: [facility] Work Phone: 07-03-2022 08:36-0500 Systolic blood pressure 122 mm[Hg] Josh L Jerson Work Phone: [facility] Work Phone: 06-27-2022 08:10-0500 Body height 180.34 cm Josh L Kulpmont Work Phone: [facility] Work Phone: 06-27-2022 08:10-0500 Body mass index (BMI) [Ratio] 25.56 kg/m2 Josh L Jerson Work Phone: [facility] Work Phone: 06-27-2022 08:10-0500 Body surface area Derived from formula 2.03 m2 Josh L Kulpmont Work Phone: [facility] Work Phone: 06-27-2022 08:10-0500 Body weight 83.12 kg Josh L Kulpmont Work Phone: [facility] Work Phone: 06-27-2022 08:10-0500 Diastolic blood pressure 68 mm[Hg] Josh Heart Kulpmont Work Phone: [facility] Work Phone: 06-27-2022 08:10-0500 Heart rate 65 /min Josh Ugarted Work Phone: [facility] Work Phone: 06-27-2022 08:10-0500 Systolic blood pressure 120 mm[Hg] Josh Ugarted Work Phone: [facility] Work Phone: 05-31-2022 08:51-0400 Body height 180.34 cm Satinder O Dos Santos Work Phone: [facility] Work Phone: 05-31-2022 08:51-0400 Body mass index (BMI) [Ratio] 25.39 kg/m2 Satinder O Dos Santos Work Phone: [facility] Work Phone: 05-31-2022 08:51-0400 Body surface area Derived from formula 2.03 m2 Satinder O Dos Santos Work Phone: [facility] Work Phone: 05-31-2022 08:51-0400 Body weight 82.58 kg Satinder O Dos Santos Work Phone: [facility] Work Phone: 05-31-2022 08:51-0400 Diastolic blood pressure 80 mm[Hg] Satinder O Dos Santos Work Phone: [facility] Work Phone: 05-31-2022 08:51-0400 Heart rate 98 /min Satinder O Dos Santos Work Phone: [facility] Work Phone: 05-31-2022 08:51-0400 Systolic blood pressure 122 mm[Hg] Satinder Dos Santos Work Phone: [facility] Work Phone: 12-18-2020 06:51-0400 Diastolic blood pressure 77 mm[Hg] Satinder Dos Santos Other Phone: [facility] 12-18-2020 06:51-0400 Heart rate 71 /min Satinder Dos Santos Other Phone: [facility] 12-18-2020 06:51-0400 Respiratory rate 16 /min Satinder Dos Santos Other Phone: [facility] 12-18-2020 06:51-0400 SaO2% (BldA) [Mass fraction] 97 % Satinder Dos Santos Other Phone: [facility] 12-18-2020 06:51-0400 Systolic blood pressure 127 mm[Hg] Satinder Dos Santos Other Phone: [facility] 12-18-2020 02:30-0400 Body height 177.8 cm Satinder Dos Santos Other Phone: [facility] 12-18-2020 02:30-0400 Body temperature 97.52 [degF] Satinder Dos Santos Other Phone: [facility] 12-18-2020 02:30-0400 Body weight 81.8 kg Satinder Dos Santos Other Phone: [facility] Encounters Encounter Date Encounter Type Care Provider Facility Start: 06-10-2025 ambulatory No Primary Car e Physician Facility:[facility] Start: 04-30-2025 End: 04-30-2025 ambulatory No Primary Care Physician -Laboratory Start: 04-30-2025 End: 04-30-2025 Patient encounter procedure Val Burnham CNM -Laboratory Work Phone: Start: 04-30-2025 End: 04-30-2025 ambulatory No Primary Care Physician Facility:[facility] Start: 04-28-2025 End: 04-28-2025 ambulatory No Primary Care Physician -Laboratory Start: 04-28-2025 End: 04-28-2025 Patient encounter procedure Val Burnham CNM -Laboratory Work Phone: Start: 04-27-2025 End: 04-28-2025 ambulatory Maria Teresa Eaton MD Work Phone: Neurology Comment on above: Infusion and pregnan cy Start: 02-25-2025 End: 02-26-2025 ambulatory Maria Teresa Eaton MD Work Phone: Neurology Comment on above: Zoloft Start: 01-26-2025 End: 01-26-2025 Orders Only Maria Teresa Eaton MD Work Phone: [facility] Start: 12-21-2024 End: 02-20-2025 Follow-up encounter Maria Teresa Eaton MD Work Phone: [facility] Start: 12-21-2024 ambulatory MARIA TERESA EATON Facility :[facility] Start: 12-21-2024 End: 12-21-2024 Subsequent hospital visit by physician Mri Radio Counts Include [address] [facility] Wstr (I-Stat/1.5t) Work Phone: Radiology Comment on above: Multiple sclerosis ( HCC) [G35] Start: 11-09-2024 End: 11-10-2024 Refill Maria Teresa Eaton MD Work Phone: Neurology Comment on above: Refill Request Start: 09-15-2024 End: 09-15-2024 Patient encounter procedure Maria Teresa Eaton MD Work Phone: Neurology Comment on above: Multiple sclerosis ( HCC) (Primary Dx) Start: 09-15-2024 End: 09-15-2024 Telephone encounter Maria Teresa Eaton MD Work Phone: [facility] Comment on above: Appointment ([facility] for patient to call so we can get her scheduled for her neuropsychological test) Start: 09-15-2024 End: 09-15-2024 ambulatory MARIA TERESA EATON Facility:[facility] Start: 07-13-2024 End: 07-13-2024 ambulatory Infusion Keyshawn Chair 5 Work Phone: Multiple Sclerosis Comment on above: Multiple sclerosis ( HCC) (Primary Dx) Start: 06-29-2024 End: 06-29-2024 ambulatory Infusion Keyshawn Chair 9 Work Phone: Multiple Sclerosis Comment on above: Multiple sclerosis ( HCC) (Primary Dx) Start: 06-22-2024 End: 06-22-2024 Telephone encounter Maria Teresa Eaton MD Work Phone: Neurology Comment on above: Appointment (Called to schedule Ocrevus start up dose. patient has been approved for free drug. LVM with phone number to call and schedule) Start: 06-17-2024 End: 06-17-2024 Telephone encounter Ruby Cedeno APRN.CNP Work Phone: [facility] Comment on above: Appointment (lvm inf orming patient that her infusion has been scheduled seeing as she should be scheduled for the start up dose and we have to wait for authorization to schedule) Start: 06-12-2024 End: 06-12-2024 Orders Only Maria Teresa Eaton MD Work Phone: [facility] Start: 06-11-2024 End: 06-15-2024 ambulatory [facility] Provider [facility] Comment on above: Ocrevus; Next Steps Start: 06-11-2024 End: 06-15-2024 E-mail encounter from caregiver [facility] Provider [facility] Start: 06-09-2024 End: 06-09-2024 Telephone encounter Maria Teresa HOWELL Work Phone: [facility] HB-[facility] Comment on above: Medication Authoriza tion (Prior Auth Denied; appeal requested) Start: 06-02-2024 End: 06-03-2024 ambulatory Maria Teresa Eaton MD Work Phone: Neurology Comment on above: JCV Index Start: 05-27-2024 End: 05-27-2024 ambulatory Maria Teresa Eaton MD Work Phone: [facility] Comment on above: Vitamin D Start: 05-27-2024 End: 05-27-2024 E-mail encounter from caregiver Maria Teresa Eaton MD Work Phone: [facility] Start: 05-26-2024 End: 05-26-2024 ambulatory MARIA TERESA EATON Facility:[facility] Start: 05-26-2024 End: 05-26-2024 Patient encounter procedure Maria Teresa Eaton MD Work Phone: Neurology Comment on above: Multiple sclerosis ( HCC) (Primary Dx); Left hand weakness; Routine health maintenance; Vitamin D deficiency Start: 05-26-2024 End: 05-26-2024 Patient encounter status Maria Teresa Eaton MD Work Phone: [facility] Start: 05-26-2024 End: 05-26-2024 ambulatory MARIA TERESA EATON [facility] Start: 05-26-2024 Encounter for genera l adult medical examination without abnormal findings MARIA TERESA EATON [facility] Start: 05-21-2024 End: 05-22-2024 Telephone encounter Maria Teresa Eaton MD Work Phone: [facility] Comment on above: Juvenile Probation Officer - O ther ([facility] new patient referral triage) Start: 05-19-2024 End: 05-20-2024 ambulatory Vinod Gray MD Work Phone: Neurology Comment on above: MRI results Start: 05-14-2024 End: 05-14-2024 ambulatory [facility] Start: 05-14-2024 End: 05-14-2024 Patient encounter procedure Vinod Gray MD Work Phone: Neurology Comment on above: Left hand weakness ( Primary Dx); Low vitamin B12 level Start: 05-14-2024 End: 05-14-[facility] Start: 05-07-2024 End: 05-07-2024 [facility] Start: 05-01-2024 End: 05-04-2024 Telephone encounter Vinod Gray MD Work Phone: Neurology Comment on above: Results - Mri Start: 04-30-2024 End: 04-30-2024 ambulatory [facility] Facility:[facility] Start: 04-30-2024 End: 04-30-2024 Subsequent hospital visit by physician Mri Radio Counts Include [address] [facility] Wstr (I-Stat/1.5t) Work Phone: Radiology Comment on above: Numbness and tinglin g in left hand [R20.0, R20.2] Start: 04-30-2024 End: 04-30-2024 ambulatory [facility] Facility:[facility] Start: 04-21-2024 End: 06-15-2024 Telephone encounter Verona Emerson Prisca Work Phone: Neurology Comment on above: Appointment ([facility] for patient to call so we can ge her scheduled for her start up dose of her infusion and a 3 month follow up) Start: 04-02-2024 End: 04-02-2024 Patient encounter procedure Vinod Gray MD Work Phone: Neurology Comment on above: Left hand weakness ( Primary Dx); Numbness and tingling in left hand; Peripheral polyneuropathy Start: 04-02-2024 End: 04-02-2024 ambulatory [facility] Facility:[facility] Start: 04-01-2024 End: 04-01-2024 Office outpatient new 45 minutes Pilar Ortiz MD Work Phone: Orthopaedics Comment on above: Numbness and tinglin g in left hand (Primary Dx); Slow involuntary movements Start: 04-01-2024 End: 04-01-2024 Subsequent hospital visit by physician Xr Counts Include [address] [facility] [email or web address] General Radiology Comment on above: Pain [R52] Start: 02-14-2024 Telephone encounter Katie velasquez MD Work Phone: Reproductive Endocrinology Infertility Comment on above: Patient Question Start: 01-30-2024 End: 01-30-2024 Admission to establishment [facility] Virtual Pre Anesthesia Start: 01-30-2024 End: 01-30-2024 Anesthesia consultation [facility] Virtual Pre Anesthesia Comment on above: Preop examination (P rimary Dx) Start: 01-30-2024 End: 01-30-2024 Preprocedural examination done [facility] Work Phone: Start: 01-21-2024 End: 01-21-2024 Office outpatient new 60 minutes Rafaela Aguillon MD Work Phone: Reproductive Endocrinology Infertility Comment on above: Septate uterus (Prim alee Dx) Start: 12-27-[address] [facility] Ambulatory Start: 12-13-2023 End: 12-17-2023 ambulatory SATINDER JACOBS [facility] Start: 12-13-2023 End: 12-13-2023 ambulatory JOSH ARTHUR [facility] Ambulatory Start: 12-13-2023 End: 12-13-2023 Office outpatient new 45 minutes Josh Arthur [facility]ALTHCARE [facility] MEDICAL Work Phone: [facility] Orthopedic and Sports Medicine Comment on above: Numbness (Primary Dx ); Arthralgia, unspecified joint; Positive KENISHA (antinuclear antibody) Start: 11-28-2023 End: 11-28-2023 Subsequent hospital visit by physician Mri Radio Counts Include 234 Beds At [facility] Wstr (I-Stat/1.5t) Work Phone: Radiology Start: 10-24-2023 End: 10-24-2023 ambulatory [facility] Work Phone: Start: 10-24-2023 End: 10-24-2023 Patient encounter procedure HERRICK CAMPUSD [facility] Work Phone: Start: 10-07-2023 End: 10-07-2023 Patient encounter procedure JOSH JERSON [facility] Work Phone: Start: 06-19-2023 End: 06-20-2023 ambulatory JOSH Heart JERSON [facility] Ambulatory Start: 06-19-2023 End: 06-20-2023 Encounter for general adult medical examination without abnormal findings JOSH Heart JERSON [facility] Start: 06-19-2023 End: 06-19-2023 Patient encounter status Josh L Jerson [employer] MEDICAL Work Phone: [facility] Work Phone: Start: 06-19-2023 End: 06-19-2023 Periodic preventive med est patient 18-39 yrs Josh Arthur [employer]-HEALTHCARE [facility] MEDICAL Work Phone: [facility] Comment on above: Vitamin B12 deficien cy (Primary Dx); Vitamin D deficiency; Numbness and tingling in left arm; Joint stiffness; Wellness examination; Lipid screening; Attempting to conceive Start: 10-18-2022 End: 10-18-2022 Patient encounter procedure Josh Arthur [facility]ARE [facility] MEDICAL Work Phone: [facility] Neurological Physicians Comment on above: Numbness (Primary Dx ) Start: 08-22-2022 AUDIT Josh Heart Jerson Work Phone: [facility] Work Phone: Start: 07-06-2022 Chart Update Josh Heart Jerson Work Phone: [address] Work Phone: Start: 07-03-2022 Encounter for gynecological examination (general) (routine) without abnormal findings David Bui [facility] Start: 07-03-2022 Encounter for gynecological examination (general) (routine) without abnormal findings David Bui Facility:[facility] Start: 07-03-2022 NPV, Provider: David Bui, Status: Pen, Time: 8:30 AM Josh Heart Jerson Work Phone: [facility] Work Phone: Start: 07-03-2022 Periodic preventive med est patient 18-39 yrs Josh Arthur Work Phone: [facility] Work Phone: Start: 07-03-2022 ambulatory David Bui Fa cility:[facility] Start: 07-02-2022 amb[address] Mrs. Josh Arthur Fa cility:[id number] Start: 07-02-2022 Patient encounter procedure Josh Heart Jerson Work Phone: [facility] Work Phone: Start: 06-27-2022 Transcribe Orders Josh Heart add HEALTHCARE OR MEDICAL Work Phone: [facility] Physician Group, Neuroscience Comment on above: LUE numbness (Primar y Dx); Numbness and tingling Start: 06-27-2022 Office outpatient vi sit 15 minutes Josh Heart Jerson Work Phone: [facility] Work Phone: Start: 06-04-2022 ambulatory Satinder Dos Santos Facil ity:[id number] Start: 06-04-2022 Patient encounter procedure Josh Heart Jerson Work Phone: [facility] Work Phone: Start: 05-31-2022 Office outpatient ne w 45 minutes Satinder Escalante Dos Santos Work Phone: [facility] Work Phone: Start: 05-31-2022 Patient encounter procedure Satinder Ava Hickeyer Work Phone: [facility] Work Phone: Start: 05-31-2022 ambulatory Satinder Dos Santos Facil [phone]:[id number] Start: 12-18-2020 End: 12-18-2020 Emergency department patient visit Maura Monsivais [facility] Emergency 09 Start: End: Patient encounter status Satinder Dos Santos Work Phone: [facility] Work Phone: Patient encounter procedure Josh Heart Jerson Work Phone: [facility] Work Phone: End: 07-06-2022 Patient encounter procedure Josh Heart Jerson Work Phone: [address] Work Phone: Comment on above: 07/03/2022; NIL; Procedures Date Procedure Procedure Detail Performing Clinician Start: 12-21-2024 Mri brain brain stem w/o w/contrast material Maria Teresa Eaton MD Work Phone: Start: 12-21-2024 BRAIN & CERVICAL SPI NE MRI DISCRETE DATA [facility] Provider Start: 06-29-2024 Assay of gammaglobul in iga igd igg igm each Maria Teresa Eaton MD Work Phone: Start: 04-30-2024 Mri brain brain stem w/o w/contrast material Vinod Gray MD Work Phone: Start: 04-01-2024 Radex hand minimum 3 views Pilar Ortiz MD Work Phone: Start: 12-13-2023 Protein total xcpt refractometry urine Lopez Alexander DO Work Phone: Start: 06-19-2023 KENISHA WITHOUT REFLEX NIKO JOSH ARTHUR Start: 06-19-2023 CBC panel - Blood by Automated count JOSH ARTHUR Start: 06-19-2023 Comprehensive metabo lic 2000 panel - Serum or Plasma JOSH ARTHUR Start: 06-19-2023 Creatine kinase [Enz ymatic activity/volume] in Serum or Plasma JOSH ARTHUR Start: 06-19-2023 Cyanocobalamin vitamin b-12 JOSH JERSON Start: 06-19-2023 FOLATE JOSH UGARTED Start: 06-19-2023 Lipid panel JOSH UGARTED Start: 06-19-2023 SEDIMENTATION RATE, AUTOMATED JOSH UGARTED Start: 06-19-2023 TSH WITH REFLEX TO F REE T4 IF ABNORMAL JOSH ARTHUR Start: 06-19-2023 VITAMIN D 25-HYDROXY,TOTAL JOSH UGARTED Start: 07-03-2022 Microscopic observat ion [Identifier] in Cervix by Cyto stain Josh Arthur [employer]HEALTHCARE [facility] MEDICAL Work Phone: Tonsillectomy Satinder Dos Santos Work Phone: Comment on above: 1999; Plan of Treatment Date Care Activity Detail Author Start: 2044 Zoster Vaccines (1 of 2) Zoster Vaccines (1 of 2) [facility] Start: 07-03-2025 Screening for malignant neoplasm of cervix [facility] Start: 04-19-2025 Influenza vaccination [facility] Start: 03-23-2025 End: 03-23-2025 ambulatory 03/23/2025 3:00 PM EDT [facility] Neurology [address] [place] [address] Maria Teresa Eaton MD [address] [address] Return in about 6 months (around 03/15/2025).Check out comments:Please schedule the MRI in December. Please help her schedule her next Ocrevus infusion. Thank you. Neurology Comment on above: Return in about 6 months (around 03/15/20).Check out comments:Please schedule the MRI in December. Please help her schedule her next Ocrevus infusion. Thank you. Start: 03-15-2025 End: 03-15-2025 Patient encounter procedure 03/15/2025 10:00 AM EDT Office Visit Neurology [address] [place] [address] [facility] Neu[facility] Comment on above: [facility] Start: 12-21-2024 End: 12-21-2024 Patient encounter procedure 12/21/2024 8:00 AM EDT Appointment Radiology [address] [place] [address] BRAIN MRI Radiology Comment on above: BRAIN MRI Start: 10-06-2024 End: 10-06-2024 Patient encounter procedure 10/06/2024 8:00 AM EST Office Visit Neuropyschology [address] [place] [address] Shikha Calvin, PhD [address] [place] [address] Multiple sclerosis (HCC) [G35] Neuropyschology Comment on above: Multiple sclerosis (HCC) [G35] Start: 09-15-2024 End: 09-15-2024 Patient encounter procedure 09/15/2024 2:00 PM EST Office Visit Neurology [address] [place] [address] Maria Teresa Eaton MD [address] [address] 2 month follow up Neurology Comment on above: 2 month follow up Start: 07-13-2024 End: 07-13-2024 ambulatory 07/13/2024 10:30 AM [facility] Infusion [place] Multiple Sclerosis [address] [place] [address] [facility] Comment on above: [facility] Start: 06-29-2024 End: 06-29-2024 ambulatory 06/29/2024 10:30 AM [facility] Multiple Sclerosis [address] [place] [address] [facility] Multiple Sclerosis Comment on above: [facility] Start: 06-19-2024 History and physical examination, annual for health maintenance Wellness Visit [facility] Start: 05-26-2024 End: 08-25-2024 25-hydroxyvitamin D3 [Mass/volume] in Serum or Plasma [facility] Comment on above: Expected: 05/26/2024, Expires: Start: 05-26-2024 End: 08-25-2024 BLOOD TB SCREEN [facility] Comment on above: Expected: 05/26/2024, Expires: Start: 05-26-2024 End: 08-25-2024 Chronic hepatitis differentiation between hepatitis B and C virus panel - Serum or Plasma [facility] Comment on above: Expected: 05/26/2024, Expires: Start: 05-26-2024 End: 08-25-2024 [employer] DEMYELINATING DISEASE EVALUATION, SERUM [facility] Comment on above: Expected: 05/26/2024, Expires: Start: 05-26-2024 End: 08-25-2024 IgG [Mass/volume] in Serum or Plasma [facility] Comment on above: Expected: 05/26/2024, Expires: Start: 05-26-2024 End: 08-25-2024 IgM [Mass/volume] in Serum or Plasma [facility] Comment on above: Expected: 05/26/2024, Expires: Start: 05-26-2024 End: 08-25-2024 JCV ANTIBODY & INDEX WITH REFLEX [facility] Work Phone: Comment on above: Expected: 05/26/2024, Expires: Start: 05-26-2024 End: 05-26-2024 Patient encounter procedure 05/26/2024 8:00 AM EDT Office Visit Neurology [address] [place] [address] Maria Teresa Eaton MD [address] [place] [address] [employer] Demyelination (Central Nervous System Demyelination) Neurology Comment on above: [employer] Demyelination (Central Nervous Syste m Demyelination) Start: 05-14-2024 End: 05-14-2024 Patient encounter procedure 05/14/2024 3:20 PM EDT Office Visit Neurology [address] [place] [address] [place] [id number] [place] [address] follow up MRI test results Neurology Comment on above: follow up MRI test results Start: 05-14-2024 End: 08-13-2024 Methylmalonate [Moles/volume] in Serum or Plasma [facility] Work Phone: Comment on above: Expected: 05/14/2024, Expires: Start: 05-05-2024 End: 05-05-2024 ambulatory 05/05/2024 7:30 AM EDT Results Only [facility] [address] [place] [address] [facility] Start: 05-01-2024 End: 07-31-2024 Angiotensin converting enzyme [Enzymatic activity/volume] in Serum or Plasma PINKY/ANGIOTENSIN BLD Lab Routine [employer] demyelination (HCC) Expected: 05/01/2024, Expires: 07/31/2024 [facility] Comment on above: Expected: 05/01/2024, Expires: Start: 05-01-2024 End: 07-31-2024 Borrelia burgdorferi IgG and IgM panel - Serum LYME AB LATE >30 DAYS SYMPTOMS Lab Routine [employer] demyelination (HCC) Expected: 05/01/2024, Expires: 07/31/2024 [facility] Comment on above: Expected: 05/01/2024, Expires: Start: 05-01-2024 End: 07-31-2024 C reactive protein [Mass/volume] in Serum or Plasma C-REACTIVE PROTEIN Lab Routine [employer] demyelination (HCC) Expected: 05/01/2024, Expires: 07/31/2024 [facility] Comment on above: Expected: 05/01/2024, Expires: 4 Start: 05-01-2024 End: 07-31-2024 DNA double strand Ab [Units/volume] in Serum by Immunoassay DNA AB DS + CONF BLD Lab Routine [employer] demyelination (HCC) Expected: 05/01/2024, Expires: 07/31/2024 [facility] Comment on above: Expected: 05/01/2024, Expires: Start: 05-01-2024 End: 07-31-2024 Erythrocyte sedimentation rate SEDIMENTATION RATE, WESTERGREN Lab Routine [employer] demyelination (HCC) Expected: 05/01/2024, Expires: 07/31/2024 [facility] Work Phone: Comment on above: Expected: 05/01/2024, Expires: 4 Start: 05-01-2024 End: 07-31-2024 Nuclear Ab [Presence] in Serum by Immunoassay KENISHA PANEL BLOOD SCRN Lab Routine [employer] demyelination (HCC) Expected: 05/01/2024, Expires: 07/31/2024 [facility] Comment on above: Expected: 05/01/2024, Expires: 4 Start: 05-01-2024 End: 07-31-2024 Rheumatoid factor [Units/volume] in Serum or Plasma RHEUMATOID FACTOR Lab Routine [employer] demyelination (HCC) Expected: 05/01/2024, Expires: 07/31/2024 [facility] Comment on above: Expected: 05/01/2024, Expires: 4 Start: 05-01-2024 End: 07-31-2024 SJOGREN ABS SSA/SSB SJOGREN ABS SSA/SSB Lab Routine [employer] demyelination (HCC) Expected: 05/01/2024, Expires: 07/31/2024 [facility] Comment on above: Expected: 05/01/2024, Expires: Start: 04-30-2024 End: 04-30-2024 Patient encounter procedure 04/30/2024 2:20 PM EDT [facility] [address] [facility] [place], [place] [address] BRAIN WWO Radiology Comment on above: BRAIN WWO Start: 04-19-2024 Covid-19 Vaccine ( season) Covid-19 Vaccine () [facility] Start: 04-19-2024 Covid-19 Vaccine () Covid-19 Vaccine () [facility] Start: 04-19-2024 Influenza vaccination [facility] Start: 04-02-2024 End: 07-02-2024 Cobalamin (Vitamin B12) [Mass/volume] in Serum or Plasma VITAMIN B12 Lab Routine Peripheral polyneuropathy Expected: 04/02/2024, Expires: 07/02/2024 [facility] Comment on above: Expected: 04/02/2024, Expires: Start: 04-02-2024 End: 07-02-2024 COPPER BLOOD COPPER BLOOD Lab Routine Peripheral polyneuropathy Expected: 04/02/2024, Expires: 07/02/2024 [facility] Comment on above: Expected: 04/02/2024, Expires: Start: 04-02-2024 End: 07-02-2024 Folate [Mass/volume] in Serum or Plasma FOLATE, SERUM Lab Routine Peripheral polyneuropathy Expected: 04/02/2024, Expires: 07/02/2024 [facility] Comment on above: Expected: 04/02/2024, Expires: Start: 04-02-2024 End: 07-02-2024 PROT ELECT SERUM WITH EMILY AND INTERP PROT ELECT SERUM WITH EMILY AND INTERP Lab Routine Peripheral polyneuropathy Expected: 04/02/2024, Expires: 07/02/2024 [facility] Comment on above: Expected: 04/02/2024, Expires: Start: 04-02-2024 End: 07-02-2024 Pyridoxine [Mass/volume] in Serum or Plasma VITAMIN B6/PYRIDOXIN Lab Routine Peripheral polyneuropathy Expected: 04/02/2024, Expires: 07/02/2024 [facility] Comment on above: Expected: 04/02/2024, Expires: Start: 04-02-2024 End: 07-02-2024 Thyrotropin [Units/volume] in Serum or Plasma THYROID STIMULATING HORMONE Lab Routine Peripheral polyneuropathy Expected: 04/02/2024, Expires: 07/02/2024 [facility] Work Phone: Comment on above: Expected: 04/02/2024, Expires: Start: 04-02-2024 End: 07-02-2024 VITAMIN B1 (THIAMINE), WHOLE BLOOD VITAMIN B1 (THIAMINE), WHOLE BLOOD Lab Routine Peripheral polyneuropathy Expected: 04/02/2024, Expires: 07/02/2024 [facility] Comment on above: Expected: 04/02/2024, Expires: Start: 04-02-2024 End: 04-02-2024 Patient encounter procedure 04/02/2024 9:00 AM EDT Office Visit Neurology [address] [place] [address] [place] [id number] [place] [address] Numbness and tingling in left hand Neurology Comment on above: Numbness and tingling in left hand Start: 02-17-2024 End: 02-17-2024 Admission to same day surgery center Ambulatory Surgery Comment on above: HYSTEROSCOPY W/ DIVISION/RESECTION INTRA UTERINE SEPTUM Start: 02-17-2024 End: 02-17-2024 Hysteroscopy div/rescj intrauterine septum [facility] Start: 02-17-2024 Subsequent hospital visit by physician Ambulatory Surgery Comment on above: Septate uterus [Q51.28] Start: 10-24-2023 Procedure [facility] Start: 10-24-2023 Beta 2 glycoprotein 1 Ab IgA and IgG and IgM panel - Serum [facility] Start: 10-24-2023 Cardiolipin IgA and IgG and IgM panel - Serum [facility] Start: 10-24-2023 Cardiolipin IgG and IgM panel - Serum [facility] Start: 10-24-2023 Dehydroepiandrosterone sulfate (DHEA-S) [Mass/volume] in Serum or Plasma [facility] Start: 10-24-2023 Lupus anticoagulant assay [facility] Start: 10-24-2023 Testosterone Free [Mass/volume] in Serum or Plasma [facility] Start: 08-19-2023 Behavioral Health Screening Behavioral Health Screening [facility] Start: 07-03-2023 History and physical examination, annual for health maintenance Wellness Visit [facility] Start: 06-19-2023 End: 06-19-2024 25-hydroxyvitamin D3 [Mass/volume] in Serum or Plasma [facility] Work Phone: Comment on above: Expected: 06/19/2023 (Approximate), Expi res: 06/19/2024 Start: 06-19-2023 End: 06-19-2024 CBC panel - Blood by Automated count [facility] Work Phone: Comment on above: Expected: 06/19/2023 (Approximate), Expi res: 06/19/2024 Start: 06-19-2023 End: 06-19-2024 Cobalamin (Vitamin B12) [Mass/volume] in Serum or Plasma [facility] Service Area Work Phone: Comment on above: Expected: 06/19/2023 (Approximate), Expi res: 06/19/2024 Start: 06-19-2023 End: 06-19-2024 Comprehensive metabolic 2000 panel - Serum or Plasma [facility] Work Phone: Comment on above: Expected: 06/19/2023 (Approximate), Expi res: 06/19/2024 Start: 06-19-2023 End: 06-19-2024 Creatine kinase [Enzymatic activity/volume] in Serum or Plasma [facility] Work Phone: Comment on above: Expected: 06/19/2023 (Approximate), Expi res: 06/19/2024 Start: 06-19-2023 End: 06-19-[address] [facility] Work Phone: Comment on above: Expected: 06/19/2023 (Approximate), Expi res: 06/19/2024 Start: 06-19-2023 End: 06-19-2024 Folate [Mass/volume] in Serum or Plasma [facility] Work Phone: Comment on above: Expected: 06/19/2023 (Approximate), Expi res: 06/19/2024 Start: 06-19-2023 End: 06-19-2024 Lipid 1996 panel - Serum or Plasma [facility] Work Phone: Comment on above: Expected: 06/19/2023 (Approximate), Expi res: 06/19/2024 Start: 06-19-2023 End: 06-19-2024 Nuclear Ab [Presence] in Serum by Hep2 substrate [facility] Work Phone: Comment on above: Expected: 06/19/2023 (Approximate), Expi res: 06/19/2024 Start: 06-19-2023 End: 06-19-2024 TSH with reflex to Free T4 if abnormal [facility] Work Phone: Comment on above: Expected: 06/19/2023 (Approximate), Expi res: 06/19/2024 Start: 04-19-2023 Covid-19 Vaccine ( season) Covid-19 Vaccine ( season) [facility] Start: 04-19-2023 Influenza vaccination Influenza Vaccine (#1) [facility] Start: 08-24-2022 EPV, Provider: Josh Arthur, Status: Pen, Time: 8:15 AM EPV, Provider: Josh Arthur, Status: Pen, Time: 8:15 AM [facility] Work Phone: Start: 07-03-2022 NPV, Provider: David Bui, Status: Pen, Time: 8:30 AM NPV, Provider: David Bui, Status: Pen, Time: 8:30 AM [facility] Work Phone: Start: 07-02-2022 NURSEVST, Provider: PRIMARY CHRISTIANNE [id number] RN,[id number], Status: Pen, Time: 8:00 AM NURSEVST, Provider: PRIMARY HORTONORLIN [id number] RN,[id number], Status: Pen, Time: 8:00 AM [facility] Work Phone: Start: 06-04-2022 NURSEVST, Provider: PRIMARY CHRISTIANNE [id number] RN,[id number], Status: Pen, Time: 8:15 AM NURSEVST, Provider: PRIMARY HORTONORLIN [id number] RN,[id number], Status: Pen, Time: 8:15 AM [facility] Work Phone: Start: 04-19-2022 Influenza vaccination Sequential Influenza Vaccine (#1) [facility] Start: 2021 HPV Vaccine (1 - 3-dose SCDM series) HPV Vaccine (1 - 3-dose SCDM series) [facility] Start: 2016 DTaP/Tdap/Td Vaccines (1 - Tdap) DTaP/Tdap/Td Vaccines (1 - Tdap) [facility] Start: 11-02-2015 Screening for malignant neoplasm of cervix [facility] Start: 2013 Hepatitis B Vaccine (1 of 3 - 19+ 3-dose series) Hepatitis B Vaccine (1 of 3 - 19+ 3-dose series) [facility] Start: 2013 Urine microalbumin profile DTaP,Tdap,Td Vaccine (1 - Tdap) [facility] Start: 2012 Hepatitis C screening Hepatitis C Screening [facility] Start: 2012 HIV screening HIV Screening [facility] Start: 2009 HIV screening HIV Screening [facility] Start: 2006 Depression screening using PHQ-9 (Patient Health Questionnaire 9) score Depression Screening (PHQ-2/9) [facility] Start: 11-02-1995 MMR Vaccines (1 of 1 - Standard series) MMR Vaccines (1 of 1 - Standard series) [facility] Start: 11-02-1995 Varicella vaccination Varicella Vaccines (1 of 2 - 2-dose childhood series) [facility] Start: 05-04-1995 COVID-19 Vaccine (#1) COVID-19 Vaccine (#1) [facility] Start: 1994 Hepatitis B Vaccines (1 of 3 - 3-dose series) Hepatitis B Vaccines (1 of 3 - 3-dose series) [facility] Start: 1994 HIV screening HIV Screening [facility] Start: 1994 Lipid panel Lipid Panel [facility] Start: 1994 Screening for malignant neoplasm of cervix Pap Smear [facility] Start: 1994 Tetanus vaccination Tetanus: Every 10yrs [facility] Start: 1994 Yearly Adult Physical Yearly Adult Physical [facility] End: 12-12-2024 Anti-cyclic citrullinated peptide antibody level [facility] Antibody Lab Routine Positive KENISHA (antinuclear antibody) 1 Occurrences starting 12/13/2023 until 12/12/2024 [facility] Comment on above: 1 Occurrences starting 12/13/2023 until 12/12/2024 Anti-cyclic citrulli nated peptide antibody level [facility] Antibody Lab Routine Positive KENISHA (antinuclear antibody) 12/13/2023 1:53 PM EDT [facility] End: 12-12-2024 Antibody to single and double stranded DNA measurement Anti-DNA Double-Stranded Antibody Lab Routine Positive KENISHA (antinuclear antibody) 1 Occurrences starting 12/13/2023 until 12/12/2024 [facility] Comment on above: 1 Occurrences starting 12/13/2023 until 12/12/2024 Antibody to single a nd double stranded DNA measurement Anti-DNA Double-Stranded Antibody Lab Routine Positive KENISHA (antinuclear antibody) 12/13/2023 1:53 PM EDT [facility] Beta 2 glycoprotein 1 IgA Ab [Presence] in Serum [facility] Beta 2 glycoprotein 1 IgG Ab [Presence] in Serum [facility] Beta 2 glycoprotein 1 IgM Ab [Presence] in Serum [facility] End: 12-12-2024 C4 complement assay C4 Complement Lab Routine Positive KENISHA (antinuclear antibody) 1 Occurrences starting 12/13/2023 until 12/12/2024 [facility] Comment on above: 1 Occurrences starting 12/13/2023 until 12/12/2024 C4 complement assay C4 Complemen t Lab Routine Positive KENISHA (antinuclear antibody) 12/13/2023 1:53 PM EDT [facility] End: 12-12-2024 C>3< complement assay C3 Complement Lab Routine Positive KENISHA (antinuclear antibody) 1 Occurrences starting 12/13/2023 until 12/12/2024 [facility] Work Phone: Comment on above: 1 Occurrences starting 12/13/2023 until 12/12/2024 C>3< complement assay C3 Complem ent Lab Routine Positive KENISHA (antinuclear antibody) 12/13/2023 1:53 PM EDT [facility] Cardiolipin IgA Ab [Units/volume] in Serum by Immunoassay [facility] Cardiolipin IgG Ab [Units/volume] in Serum or Plasma [facility] Cardiolipin IgM Ab [Units/volume] in Serum or Plasma [facility] End: 12-12-2024 Chromatin Antibodies Chromatin Antibodies Lab Routine Positive KENISHA (antinuclear antibody) 1 Occurrences starting 12/13/2023 until 12/12/2024 [facility] Comment on above: 1 Occurrences starting 12/13/2023 until 12/12/2024 Chromatin Antibodies Chromatin A ntibodies Lab Routine Positive KEINSHA (antinuclear antibody) 12/13/2023 1:53 PM EDT [facility] Dehydroepiandrostero ne sulfate (DHEA-S) [Mass/volume] in Serum or Plasma [facility] End: 12-12-2024 Extractable nuclear antigen antibody screening test NIKO Screen (Ro52,Ro60,SSB,SM,SLAT BASKET TOP MAKER ,SCL-70,JO1) Lab Routine Positive KENISHA (antinuclear antibody) 1 Occurrences starting 12/13/2023 until 12/12/2024 [facility] Comment on above: 1 Occurrences starting 12/13/2023 until 12/12/2024 Extractable nuclear antigen antibody screening test NIKO Screen (Ro52,Ro60,SSB,SM,SLAT BASKET TOP MAKER ,SCL-70,JO1) Lab Routine Positive KENISHA (antinuclear antibody) 12/13/2023 1:53 PM EDT [facility] Lupus anticoagulant screening test [facility] End: 05-02-2025 MR Brain WO and W contrast IV MRI BRAIN WO/W IVCON Radiology Routine Numbness and tingling in left hand Left hand weakness 1 Occurrences starting 04/02/2024 until 05/02/2025 [facility] Comment on above: 1 Occurrences starting 04/02/2024 until 05/02/2025 End: 10-15-2025 MR Brain WO and W contrast IV MRI BRAIN WO/W IVCON Radiology Routine Multiple sclerosis (HCC) 1 Occurrences starting 09/15/2024 until 10/15/2025 [facility] Work Phone: Comment on above: 1 Occurrences starting 09/15/2024 until 10/15/2025 End: 05-02-2025 MR Cervical spine WO and W contrast IV MRI CERVICAL SPINE WO/W IVCON Radiology Routine Numbness and tingling in left hand Left hand weakness 1 Occurrences starting 04/02/2024 until 05/02/2025 [facility] Comment on above: 1 Occurrences starting 04/02/2024 until 05/02/2025 MR Pelvis WO and W c ontrast IV [facility] Partial thromboplast in time ratio [facility] End: 12-12-2024 Rheumatoid factor, quantitative Rheumatoid factor Lab Routine Positive KENISHA (antinuclear antibody) 1 Occurrences starting 12/13/2023 until 12/12/2024 [facility] Comment on above: 1 Occurrences starting 12/13/2023 until 12/12/2024 Rheumatoid factor, quantitative Rheumatoid factor Lab Routine Positive KENISHA (antinuclear antibody) 12/13/2023 1:53 PM EDT [facility] Testosterone Free [Mass/volume] in Serum or Plasma [facility] Thrombin time [facility] Payers Date Payer Category Payer Self-pay 2025 Unknown [id number] 2024 Private Health Insurance [id number] 2024 Unknown [id number] 2022 Unknown [id number] 2022 Unknown 2022 Unknown [id number] 1994 Unknown [id number] 2.16. [id number] 1994 Unknown [id number] 2.16. [id number] 1994 Unknown [id number] 2.16. [id number] 1994 Unknown [id number] 2.16. [id number] 1994 Unknown [id number] 2.16. [id number] 1994 Unknown [id number] 2.16. [id number] 1994 Unknown [id number] 2.16.8 [id number] 1994 Unknown [id number] 2.16.8 [id number] 1994 Unknown [id number] 2.16. [id number] 1994 Unknown [id number] 2.16. [id number] 1994 Unknown [id number] 2.16. [id number] Unknown [id number] 2.16.8 [id number] Unknown [id number] 2.16.8 [id number] Unknown [id number] 2.16.8 [id number] Social History Date Type Detail Facility [facility] Start: 10-07-2023 End: 01-21-2024 Tobacco smoking consumption unknown [facility] Start: 01-21-2024 End: 01-30-2024 No illicit drug use No illicit drug use [facility] Start: 1995 Sex Assigned At Not on file O [facility] Start: 10-08-2022 End: 06-19-2023 Exposure to SARS-CoV-2 (event) Not sure [facility] Start: 06-19-2023 End: 10-07-2023 Tobacco smoking status NHIS Never smoked tobacco [facility] Work Phone: Start: 06-19-2023 End: 01-30-2024 Tobacco use and exposure Smokeless tobacco non-user [facility] Work Phone: Start: 06-19-2023 End: 09-15-2024 Alcohol intake Current drinker of alcohol (finding) [facility] Work Phone: Start: 01-21-2024 End: 01-30-2024 Gender identity Not on file [facility] Start: 1995 Sex Assigned At Female [facility] Start: 10-28-2023 National Score (1-100), lower number is lower risk 57 [facility] Start: 01-30-2024 Alcohol Comment every other day [address] swartz [facility] Start: 01-21-2024 Alcohol intake Ex-drinker (finding) [facility] Start: 05-26-2024 Education 17 [facility] Medical Equipment Procedure Code Equipment Code Equipment Origin al Text Equipment Identifier Dates BD Luer-Dennis Syri nge 3 mL 22 gauge x 1" syringe [id number] Start: 05-11-2023 Clinical Notes 07-11-2021 to 04-27-2025 Telephone Encounter - Tavon López RN - 04/27/2025 5:01 PM EDTTelephone Encounter - Tavon López RN - 04/27/2025 5:01 PM EDTTelephone Encounter - Tavon López RN - 02/26/2025 10:47 AM EDT Note Date & Type Note Facility 04-27-2025 Telephone encounter Note Normal priority message forwarded to [facility] for review. [facility] 04-27-2025 Miscellaneous Notes Normal priority message forwarded to [facility] team for review. documented in this encounter [facility] 02-26-2025 Telephone encounter Note MyChart response sent to patient advising them to schedule a visit to discuss their concerns [facility] 02-26-2025 Miscellaneous Notes MyChart response sent to patient advising them to schedule a visit to discuss their concerns documented in this encounter [facility] 12-21-2024 History of Present illness Narrative Radiology Service Progress Note DATE OF SERVICE: December 21, 2024 TIME: 8:30 AM PATIENT IDENTITY VERIFICATION COMPLETED USING TWO (2) STANDARD IDENTIFIERS: Name and Date of confirmed by patient verbally. FALL SCREENING: Has the patient had 2 falls in the last year or 1 fall with injury or currently using an Ambulatory Assistive Device (Walker, Cane, Wheelchair, Crutches, etc.)? No PATIENT GENDER DATA: Assigned female at . status: : No status: NO. PATIENT RELEVANT IMPLANT DATA REVIEWED: Yes PATIENT PRESENTS WITH AN IMPLANTABLE OR ATTACHED NUTRITION CONSULTANT: No ALLERGIES: Reviewed and unchanged CONTRAST ALLERGY: NO. EXAM: MRI - CONTRAST TYPE: GROUP II PERIPHERAL IV DATA: Ambulatory: A peripheral IV was started in the Right antecubital site with a Angio cath: 22 gauge. RADIOLOGY DEPARTMENT: MR; Exam(s) Completed: Head: Multiple Sclerosis. Lavender Administered: No SIGNATURE: RT Andrew(R) PATIENT NAME: Tyler Ho DATE: December 21, 2024 TIME: 8:30 AM documented in this encounter [facility] 12-21-2024 Note HNO ID: [id number] Author: MARILEE ZAYAS RT(Oziel) Service: ? Author Type: Technologist Type: Progress Notes Filed: 12/21/2024 08:31 Note Text: Radiology Service Progress Note DATE OF SERVICE: December 21, 2024 TIME: 8:30 AM PATIENT IDENTITY VERIFICATION COMPLETED USING TWO (2) STANDARD IDENTIFIERS: Name and Date of confirmed by patient verbally. FALL SCREENING: Has the patient had 2 falls in the last year or 1 fall with injury or currently using an Ambulatory Assistive Device (Walker, Cane, Wheelchair, Crutches, etc.)? No PATIENT GENDER DATA: Assigned female at . status: : No status: NO. PATIENT RELEVANT IMPLANT DATA REVIEWED: Yes PATIENT PRESENTS WITH AN IMPLANTABLE OR ATTACHED NUTRITION CONSULTANT: No ALLERGIES: Reviewed and unchanged CONTRAST ALLERGY: NO. EXAM: MRI - CONTRAST TYPE: GROUP II PERIPHERAL IV DATA: Ambulatory: A peripheral IV was started in the Right antecubital site with a Angio cath: 22 gauge. RADIOLOGY DEPARTMENT: MR; Exam(s) Completed: Head: Multiple Sclerosis. Lavender Administered: No SIGNATURE: Marilee Zayas, RT(R) PATIENT NAME: Tyler Ho DATE: December 21, 2024 TIME: 8:30 AM [facility] 11-10-2024 Telephone encounter Note The following approved medication requests have been transmitted electronically. Requested Prescriptions Signed Prescriptions Disp Refills sertraline (ZOLOFT) 25 mg tablet 30 tablet 11 Sig: Take 1 tablet by mouth once daily. Authorizing Provider: MARY KENDALL APRN.CNP [facility] 11-10-2024 Miscellaneous Notes The following approved medication requests have been transmitted electronically. Requested Prescriptions Signed Prescriptions Disp Refills sertraline (ZOLOFT) 25 mg tablet 30 tablet 11 Sig: Take 1 tablet by mouth once daily. Authorizing Provider: MARY KENDALL APRN.CNP Source : mychart from patient requesting refill. Delivery : e-script Requested Prescriptions Pending Prescriptions Disp Refills sertraline (ZOLOFT) 25 mg tablet 30 tablet 11 Sig: Take 1 tablet by mouth once daily. DX : Patient last seen 09/15/2024 Next Appointment : 03/23/2025 Constance Boss documented in this encounter [facility] 11-10-2024 Telephone encounter Note Source : mychart from patient requesting refill. Delivery : e-script Requested Prescriptions Pending Prescriptions Disp Refills sertraline (ZOLOFT) 25 mg tablet 30 tablet 11 Sig: Take 1 tablet by mouth once daily. DX : Patient last seen 09/15/2024 Next Appointment : 03/23/2025 Constance Boss [facility] 09-15-2024 Telephone encounter Note Summary: appointment lvm for patient to call so we can get her scheduled for her neuropsychological test [facility] 09-15-2024 Miscellaneous Notes Summary: appointment lvm for patient to call so we can get her scheduled for her neuropsychological test documented in this encounter [facility] 09-15-2024 History of Present illness Narrative [facility] FOLLOWUP EVALUATION PRINCIPAL NEUROLOGIC DIAGNOSIS: Multiple sclerosis DISEASE HISTORY Onset: ~ 2020 Diagnosis of MS: MAY 2024 Disease course at onset: relapsing-remitting Current disease course: relapsing-remitting Prior disease therapy: none Current disease therapy: Ocrevus. Date started: 29 JUN 2024 Last MRI brain: 30 APR 2024 Last MRI cervical spine: 30 APR 2024 JCV Status: (+) on 26 MAY 2024 with an Ab Index of 2.33 CDS1: (-) on 26 MAY 2024 INTERVAL HISTORY: Tyler Ho is a 28 year old woman with multiple sclerosis returning for follow-up after our last visit on 26 May 2024. The infusion of Ocrevus went well. She was a little tired following it. She remains able to use her hands. They are a little numb, but nothing that gets in the way too much. Stress tends to make the symptoms worse. She is under stress with her mother who has schizoaffective disorder. From a mood perspective, she has struggled with depression and anxiety for awhile. Her mood is on the lower side and her anxiety is a bit on the higher side. She has been on anti-depressant therapy about 10 years ago. She did not notice a significant improvement with this for her depression. Ms. Ho has noticed brain fog. Short-term is especially affected, especially over the last six months. 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 From a sleep perspective, she usually goes to bed around midnight and she gets up at 5:30 am. On average, she is getting around 5.5 hours of sleep. Bowel and bladder function have been good. She remains stable from a mobility perspective. Sometimes it feels like her eyes are moving slow and do not catch up with her brain. PAST HISTORY REVIEWED: PAST MEDICAL HISTORY Diagnosis Date Multiple sclerosis (HCC) PAST SURGICAL HISTORY Procedure Laterality Date PAST SURGICAL HISTORY OF Intrauterine septum resection TONSILLECTOMY & ADENOIDECTOMY <AGE 11 2002 Current Outpatient Medications Medication Sig ergocalciferol 50,000 unit capsule (VITAMIN D2, DRISDOL) Take 1 capsule by mouth one time a week. predniSONE (DELTASONE) 50 mg Take 13 tablets in the morning and 12 tablets in the mid afternoon daily for 3 days. Take with food. famotidine (PEPCID) 20 mg tablet Take 1 tablet by mouth two times a day. predniSONE (DELTASONE) 20 mg tablet Take 3 tablets for 4 days, then take 2 tablets for 4 days, then take 1 tablet for 4 days, then stop. No current facility-administered medications for this visit. SOCIAL HISTORY REVIEWED: Social History Tobacco Use Smoking status: Never Smokeless tobacco: Never Vaping Use Vaping status: Never Used Substance Use Topics Alcohol use: Yes Alcohol/week: 4.0 standard drinks of alcohol Types: 4 Standard drinks or equivalent per week Comment: every other day 1 drink Drug use: Never ROS: Comprehensive review of systems otherwise was negative, including constitutional, head and neck, cardiovascular, pulmonary, gastrointestinal, endocrine, urologic, reproductive, rheumatic, hematologic, immunologic, dermatologic, and psychiatric. Nutritional concerns: None Driving issues: None Concerns regarding living situation and safety at home: None Risk of falls: None Pain: None EXAM: 09/15/24 1343 BP: 119/77 Pulse: 68 Weight: 77.4 kg (170 lb 10.2 oz) Height: 177.8 cm (5' 10") Well-groomed. No acute distress. The patient was alert and oriented to person, place, and time with normal language, attention and concentration, recent and remote memory, praxis, and intellectual function. Affect was normal. The patient did not appear depressed. [facility] 20/20 OU. Full EOM without nystagmus or ataxia. Normal facial movements. Normal hearing. Normal palatal movements. Normal tongue movements. No dysarthria. Motor Examination: Right Upper Extremity: (of 5) Left Upper Extremity: (of 5) Deltoid 5 Deltoid 5 Biceps 5 Biceps 5 Triceps 5 Triceps 5 Finger extensors 5- Finger extensors 5- Finger flexors 5- Finger flexors 5 Dorsal interossei 5 Dorsal interossei 5 Abductor pollicis 5 Abductor pollicis 5 Tone (Juan Carlos scale) 0 Tone (Juan Carlos scale) 0 Right Lower Extremity: (of 5) Left Lower Extremity: (of 5) Hip flexors 5- Hip flexors 5 Hip extensors 5 Hip extensors 5 Knee flexors 5 Knee flexors 5 Knee extensors 5 Knee extensors 5 Dorsiflexors 5 Dorsiflexors 5 Plantarflexors 5 Plantarflexors 5 Tone (Juan Carlos scale) 0 Tone (Juan Carlos scale) 0 Modified Juan Carlos Score Lopez: 0 - no increase in tone 1 - Slight increase in tone (catch and release at end of ROM) 1+ Slight increase in tone, manifested by a catch followed by min resistance throughout remainder (less than 1/2 ROM) 2 - marked increase in tone through most of ROM, but affected part easily moved 3 - considerable increase in tone; passive movement difficult 4 - Effected part rigid Coordination appeared intact in the upper and lower extremities. Standard gait was normal. Heel and toe walking were normal but she had mild difficulty with tandem gait. REVIEW OF STUDIES: Blood studies Latest Ref Rng 05/26/2024 WBC 3.70 - 11.00 k/uL 7.37 RBC 3.90 - 5.20 m/uL 4.79 Hemoglobin 11.5 - 15.5 g/dL 13.2 Hematocrit 36.0 - 46.0 % 40.2 MCV 80.0 - 100.0 fL 83.9 MCH 26.0 - 34.0 pg 27.6 MCHC 30.5 - 36.0 g/dL 32.8 RDW-CV 11.5 - 15.0 % 13.1 Platelet Count 150 - 400 k/uL 270 MPV 9.0 - 12.7 fL 10.3 Neut% % 59.2 Abs Neut (ANC) 1.45 - 7.50 k/uL 4.36 Lymph% % 29.3 Abs Lymph 1.00 - 4.00 k/uL 2.16 Day% % 9.2 Abs Day <0.87 k/uL 0.68 Eosin% % 1.5 Abs Eosin <0.46 k/uL 0.11 Baso% % 0.5 Abs Baso <0.11 k/uL 0.04 Immature Gran % % 0.3 IMMATURE GRANS (ABS) <0.10 k/uL <0.03 NRBC /100 WBC 0.0 Absolute nRBC <0.01 k/uL <0.01 DTYPE Auto Protein, Total 6.3 - 8.0 g/dL 7.4 Albumin 3.9 - 4.9 g/dL 4.5 Calcium 8.5 - 10.2 mg/dL 9.6 Bilirubin, Total 0.2 - 1.3 mg/dL 0.9 Alkaline Phosphatase 34 - 123 U/L 46 AST 13 - 35 U/L 12 (L) ALT 7 - 38 U/L 7 Glucose 74 - 99 mg/dL 100 (H) BUN 7 - 21 mg/dL 11 Creatinine 0.58 - 0.96 mg/dL 0.74 Sodium 136 - 144 mmol/L 141 Potassium 3.7 - 5.1 mmol/L 4.3 Chloride 98 - 107 mmol/L 107 CO2 22 - 30 mmol/L 25 Anion Gap 8 - 15 mmol/L 9 eGFR >=60 mL/min/1.73m 112 TB Nil <=8.00 IU/mL <0.00 TB1 Ag minus Nil <0.35 IU/mL 0.16 TB2 Ag minus Nil <0.35 IU/mL 0.13 TB Result Negative Mitogen minus Nil >=0.50 IU/mL 7.18 TB Interpretation Infection with M. tuberculosis complex is unlikely. If latent tuberculosis infection is highly suspected, a negative result does not rule out the infection. Specimens from immunocompromised patients and those <5 years of age may show false negative results. In case of a contact investigation, please repeat 8-12 weeks after a known exposure. [employer] Demyelinating Disease Interp, S SEE NOTE NMO/AQPF FACS, S Negative Negative MOG-IgG1 FACS Negative Negative JCV Index Value 2.33 (H) JCV Antibody POSITIVE ! Hep B Surface Ab, Qual Positive Hep B Surf Ab Quant mIU/mL 190.36 IgM 40 - 230 mg/dL 199 IgG 700 - 1,600 mg/dL 1,225 Vitamin D 25 Hydroxy 31.0 - 80.0 ng/mL 22.9 (L) Hep C Antibody IA Negative Negative Hep B Surface Ag Negative Negative Hep B Core Ab, Total Negative Negative Latest Ref Rng 06/29/2024 IgG 700 - 1,600 mg/dL 1,025 IgM 40 - 230 mg/dL 211 MRI No new MRIs IMPRESSION: Tyelr Ho is a 28 year old woman with multiple sclerosis. Her neurological examination is improved compared to her prior visit with some residual right hand weakness. Overall, she appears to be doing well on the Ocrevus, which we will plan to continue. She'll be due in December for updated imaging to monitor for subclinical disease activity that may suggest a need for a change in disease modifying therapy. This was ordered. With respect to her cognition, we will get neuropsychological testing as an objective assessment of the various cognitive domains. I also counseled her that the lack of sleep is likely contributing and recommended increasing her average daily sleep to at least seven hours. Her mood is probably a contributor as well and after discussing, she opted to try Zoloft. She will also contact me after thinking about whether or not she would like to pursue psychology. I encouraged her to continue, though, with the exercise and Mediterranean diet, which are likely very beneficial for her. In terms of , I would favor waiting until after her MRI and next infusion. We discussed the approach to on Ocrevus, which she could start in February. PLAN: Continue Ocrevus. MRI brain with and without contrast in December 2024. Start Zoloft 25 mg daily. Neuropsychological testing. Follow-up in six months. I spent 30 minutes on the date of service, which included preparing to see the patient, [id number] patient care, performing a medically appropriate examination, completing clinical documentation, reviewing records, and counseling/educating the patient/family. Maria Teresa Eaton MD Staff Neurologist [facility] documented in this encounter [facility] 09-15-2024 Note HNO ID: [id number] Author: MARIA TERESA EATON MD Service: ? Author Type: Physician Type: Progress Notes Filed: 09/15/2024 14:25 Note Text: [facility] FOLLOWUP EVALUATION PRINCIPAL NEUROLOGIC DIAGNOSIS: Multiple sclerosis DISEASE HISTORY Onset: ~ 2020 Diagnosis of MS: MAY 2024 Disease course at onset: relapsing-remitting Current disease course: relapsing-remitting Prior disease therapy: none Current disease therapy: Ocrevus. Date started: 29 JUN 2024 Last MRI brain: 30 APR 2024 Last MRI cervical spine: 30 APR 2024 JCV Status: (+) on 26 MAY 2024 with an Ab Index of 2.33 CDS1: (-) on 26 MAY 2024 INTERVAL HISTORY: Tyler Ho is a 28 year old woman with multiple sclerosis returning for follow-up after our last visit on 26 May 2024. The infusion of Ocrevus went well. She was a little tired following it. She remains able to use her hands. They are a little numb, but nothing that gets in the way too much. Stress tends to make the symptoms worse. She is under stress with her mother who has schizoaffective disorder. From a mood perspective, she has struggled with depression and anxiety for awhile. Her mood is on the lower side and her anxiety is a bit on the higher side. She has been on anti-depressant therapy about 10 years ago. She did not notice a significant improvement with this for her depression. Ms. Ho has noticed brain fog. Short-term is especially affected, especially over the last six months. 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 From a sleep perspective, she usually goes to bed around midnight and she gets up at 5:30 am. On average, she is getting around 5.5 hours of sleep. Bowel and bladder function have been good. She remains stable from a mobility perspective. Sometimes it feels like her eyes are moving slow and do not catch up with her brain. PAST HISTORY REVIEWED: PAST MEDICAL HISTORY Diagnosis Date Multiple sclerosis (HCC) PAST SURGICAL HISTORY Procedure Laterality Date PAST SURGICAL HISTORY OF Intrauterine septum resection TONSILLECTOMY AND ADENOIDECTOMY Current Outpatient Medications Medication Sig ergocalciferol 50,000 unit capsule (VITAMIN D2, DRISDOL) Take 1 capsule by mouth one time a week. predniSONE (DELTASONE) 50 mg Take 13 tablets in the morning and 12 tablets in the mid afternoon daily for 3 days. Take with food. famotidine (PEPCID) 20 mg tablet Take 1 tablet by mouth two times a day. predniSONE (DELTASONE) 20 mg tablet Take 3 tablets for 4 days, then take 2 tablets for 4 days, then take 1 tablet for 4 days, then stop. No current facility-administered medications for this visit. SOCIAL HISTORY REVIEWED: Social History Tobacco Use Smoking status: Never Smokeless tobacco: Never Vaping Use Vaping status: Never Used Substance Use Topics Alcohol use: Yes Alcohol/week: 4.0 standard drinks of alcohol Types: 4 Standard drinks or equivalent per week Comment: every other day 1 drink Drug use: Never ROS: Comprehensive review of systems otherwise was negative, including constitutional, head and neck, cardiovascular, pulmonary, gastrointestinal, endocrine, urologic, reproductive, rheumatic, hematologic, immunologic, dermatologic, and psychiatric. Nutritional concerns: None Driving issues: None Concerns regarding living situation and safety at home: None Risk of falls: None Pain: None EXAM: 09/15/24 1343 BP: 119/77 Pulse: 68 Weight: 77.4 kg (170 lb 10.2 oz) Height: 177.8 cm (5' 10") Well-groomed. No acute distress. The patient was alert and oriented to person, place, and time with normal language, attention and concentration, recent and remote memory, praxis, and intellectual function. Affect was normal. The patient did not appear depressed. [facility] 20/20 OU. Full EOM without nystagmus or ataxia. Normal facial movements. Normal hearing. Normal palatal movements. Normal tongue movements. No dysarthria. Motor Examination: Right Upper Extremity: (of 5) Left Upper Extremity: (of 5) Deltoid 5 Deltoid 5 Biceps 5 Biceps 5 Triceps 5 Triceps 5 Finger extensors 5- Finger extensors 5- Finger flexors 5- Finger flexors 5 Dorsal interossei 5 Dorsal interossei 5 Abductor pollicis 5 Abductor pollicis 5 Tone (Juan Carlos scale) 0 Tone (Juan Carlos scale) 0 Right Lower Extremity: (of 5) Left Lower Extremity: (of 5) Hip flexors 5- Hip flexors 5 Hip extensors 5 Hip extensors 5 Knee flexors 5 Knee flexors 5 Knee extensors 5 Knee extensors 5 Dorsiflexors 5 Dorsiflexors 5 Plantarflexors 5 Plantarflexors 5 Tone (Juan Carlos scale) 0 Tone (Juan Carlos scale) 0 Modified Juan Carlos Score Lopez: 0 - no increase in tone 1 - Slight increase in tone (catch and release at end of ROM) 1+ Slight increase in tone, manifested by a catch followed by min resistance throughout remainder (less than 1/2 ROM) 2 - marked increase in tone through most of ROM (more content not included)... [facility] 06-22-2024 Telephone encounter Note Called to schedule Ocrevus start up dose. patient has been approved for free drug. LVM with phone number to call and schedule [facility] 06-22-2024 Miscellaneous Notes Called to schedule Ocrevus start up dose. patient has been approved for free drug. LVM with phone number to call and schedule documented in this encounter [facility] 06-17-2024 Telephone encounter Note Summary: appointment lvm informing patient that her infusion has been scheduled seeing as she should be scheduled for the start up dose and we have to wait for authorization to schedule [facility] 06-17-2024 Miscellaneous Notes Summary: appointment lvm informing patient that her infusion has been scheduled seeing as she should be scheduled for the start up dose and we have to wait for authorization to schedule documented in this encounter [facility] 06-15-2024 Telephone encounter Note Patient has been approved for free drug due to insurance denial, medical clearance obtained from care team, scheduling request sent to [facility] pool already. [facility] 06-15-2024 Miscellaneous Notes Patient has been approved for free drug due to insurance denial, medical clearance obtained from care team, scheduling request sent to [facility] pool already. documented in this encounter [facility] 06-15-2024 Telephone encounter Note Summary: appointment lvm for patient to call so we can ge her scheduled for her start up dose of her infusion and a 3 month follow up [facility] 06-15-2024 Miscellaneous Notes Summary: appointment lvm for patient to call so we can ge her scheduled for her start up dose of her infusion and a 3 month follow up Received corespondence from [facility] stating peer to peer needed for MRI Brain w/wo contrast 20228. Denial reason was that there has been a previously approved MRI Brain and that it needs to be confirmed that the prior approved study has not been completed. Spoke with textile designs sales representative Cynthia at [facility] and informed that per note with patient on 04/02: She has not had magnetic resonance imaging of the the brain or spinal axis. Cynthia said Authorization for MRI Brain is [id number] and C-spine MRI authorization is [id number]. Message sent to pre access with the above information. documented in this encounter [facility] 06-09-2024 Telephone encounter Note Images from the original note were not included. === PHARMACY TEAM ==== PEER TO PEER/APPEAL REQUESTED PROVIDER TO COMPLETE P2P or Appeal: Appeal Payer: [employer] DOS: TBS Drug Name(s) & HCPCS/CPTCode(s): J2350 Ocrevus Dx code(s) submitted: G35 MS Provider: MARIA TERESA EATON Peer to Peer/Appeal reason: Timeframe to complete: 180 days Date sent to provider: 06/09/24 Courtesy page sent (PRN): No [facility] 06-09-2024 Miscellaneous Notes Images from the original note were not included. === PHARMACY TEAM ==== PEER TO PEER/APPEAL REQUESTED PROVIDER TO COMPLETE P2P or Appeal: Appeal [facility] DOS: TBS Drug Name(s) & HCPCS/CPTCode(s): J2350 Ocrevus Dx code(s) submitted: G35 MS Provider: MARIA TERESA EATON Peer to Peer/Appeal reason: Timeframe to complete: 180 days Date sent to provider: 06/09/24 Courtesy page sent (PRN): No documented in this encounter [facility] 06-03-2024 Telephone encounter Note 10 minutes of professional decision making were performed as part of the online digital E/M services provided to the patient. Maria Teresa Eaton MD [facility] 06-03-2024 Miscellaneous Notes 10 minutes of professional decision making were performed as part of the online digital E/M services provided to the patient. Maria Teresa Eaton MD [facility] Normal priority message forwarded to [facility] provider for review. MyChart message sent to patient about their JCV test , Vitamin D and B12 regimen documented in this encounter [facility] 06-03-2024 Telephone encounter Note Normal priority message forwarded to [facility] provider for review. [facility] 06-02-2024 Telephone encounter Note MyChart message sent to patient about their JCV test , Vitamin D and B12 regimen [facility] 05-26-2024 Instructions Maria Teresa Eaton MD - 05/26/2024 8:57 AM EDT PREDNISONE 50 mg: Take 13 pills in the morning and 12 pills in the early afternoon for 3 days. PREDNISONE 20 mg: Begin taking prednisone 20 mg the day after your last day of prednisone 50 mg Day 1 through Day 4: Take 3 tablets Day 5 through Day 8: Take 2 tablets Day 9 through Day 12: Take 1 tablet Then Stop. PEPCID: Take one tablet of Pepcid twice daily while you are on the steroids. This is because steroids can increase stomach acid production. Vitamin B12 Take 1,000 micrograms daily documented in this encounter [facility] 05-26-2024 Note HNO ID: [id number] Author: MARIA TERESA EATON MD Service: ? Author Type: Physician Type: Progress Notes Filed: 05/26/2024 09:12 Note Text: [facility] NEW EVALUATION Referral source: Vinod Gray [id number] [address]/[facility]-[address] [place] [id number] PRINCIPAL NEUROLOGIC DIAGNOSIS: Multiple sclerosis DISEASE HISTORY Onset: ~ 2020 Diagnosis of MS: MAY 2024 Disease course at onset: relapsing-remitting Current disease course: relapsing-remitting Prior disease therapy: none Current disease therapy: none. Date started: NA Last MRI brain: 30 APR 2024 Last MRI cervical spine: 30 APR 2024 HISTORY OF ILLNESS: Consultation on/Evaluation of this 28 year old right-handed woman was requested regarding management of MS. The patient was unaccompanied. Previous records (physician notes, laboratory reports, and radiology reports) and imaging studies were reviewed and summarized. My findings and recommendations will be communicated back to the patient's physician(s) either via the shared medical record or mail. Follow-up is expected to be with me at the [facility]. Ms. Ho began to notice some numbness starting around 2020. This was primarily in her left leg/foot. Over the years, this has spread, but it has always been worse on her left. Now it is worse in the hands than in the feet (though it was previously worse on the left). At the beginning of 2023, Ms. Ho noticed that when she moved her eyes, they felt jittery. She also felt a bit nauseated. Ms. Ho notes that in March she noticed she couldn't use her left hand properly. She couldn't type and she couldn't manipulate her fingers well. She saw orthopedics and was referred to Dr. Gray. After a month, the fingers were still numb but she is now better able to control it. Dr. Gray obtained an MRI, which raised suspicion for multiple sclerosis. She has not been treated with steroids. The hand numbness is worse than her baseline. She doesn't think it has ever been this consistently bad before. At times, she has felt some weakness in her legs. Exercise tends to make things worse. She has not clearly noticed that there is worsening with heat exposure. Ms. Ho also admits to some cognitive difficulties. She has trouble remembering things at times. Prior to the above, she denies any history of episodic neurologic impairment that might be consistent with [employer] demyelination, such as unilateral visual loss, focal weakness/numbness, slurred speech or facial droop. PAST HISTORY: PAST MEDICAL HISTORY Diagnosis Date Multiple sclerosis (HCC) PAST SURGICAL HISTORY Procedure Laterality Date PAST SURGICAL HISTORY OF Intrauterine septum resection TONSILLECTOMY AND ADENOIDECTOMY Transfusions: None No current outpatient medications on file. No current facility-administered medications for this visit. Social History Tobacco Use Smoking status: Never Smokeless tobacco: Never Vaping Use Vaping status: Never Used Substance Use Topics Alcohol use: Yes Alcohol/week: 4.0 standard drinks of alcohol Types: 4 Standard drinks or equivalent per week Comment: every other day 1 drink Drug use: Never FAMILY HISTORY Problem Relation Age of Onset No Known Problems Mother No Known Problems Father Anesthesia Problems No Family History Multiple Sclerosis No Family History REVIEW OF SYSTEMS: Comprehensive review of systems otherwise was negative, including constitutional, head and neck, cardiovascular, pulmonary, gastrointestinal, endocrine, urologic, reproductive, rheumatic, hematologic, immunologic, dermatologic, and psychiatric. Nutritional concerns: None Driving issues: None Concerns regarding living situation and safety at home: None Risk of falls: None Pain: None PHYSICAL EXAM: 05/26/24 0753 BP: 126/81 Pulse: 61 SpO2: 100% Weight: 85.7 kg (188 lb 15 oz) Height: 177.8 cm (5' 10") Hair, skin, nails, and joints were normal. Neck was supple without Lhermitte's phenomenon. There was no percussion tenderness over the spine. Carotids were 2+ without bruits. Thyroid was normal. The patient was alert and oriented to person, place, and time with normal language, attention and concentration, recent and remote memory, praxis, and intellectual function. Affect was normal. The patient did not appear depressed. Visual acuity to near card was as follows: OD= 20/20 (with glasses) OS= 20/20 (with glasses). Visual hdz were full to confrontation. Pupils were 6 mm and briskly reactive OU without a relative afferent pupillary defect. Funduscopic examination was normal without disc edema, erythema, or atrophy. Ocular ductions were full without nystagmus or ataxia. Facial sensation was normal. Muscles of mastication and facial expression moved normally. Hearing was normal. Gag reflex and palatal movements were normal. Sternocleidomastoid and trapezius power were normal. Tongue movemen (more content not included)... [facility] 05-26-2024 History of Present illness Narrative Images from the original note were not included. [facility] NEW EVALUATION Referral source: Vinod Gray [id number] [facility] [id number] PRINCIPAL NEUROLOGIC DIAGNOSIS: Multiple sclerosis DISEASE HISTORY Onset: ~ 2020 Diagnosis of MS: MAY 2024 Disease course at onset: relapsing-remitting Current disease course: relapsing-remitting Prior disease therapy: none Current disease therapy: none. Date started: NA Last MRI brain: 30 APR 2024 Last MRI cervical spine: 30 APR 2024 HISTORY OF ILLNESS: Consultation on/Evaluation of this 28 year old right-handed woman was requested regarding management of MS. The patient was unaccompanied. Previous records (physician notes, laboratory reports, and radiology reports) and imaging studies were reviewed and summarized. My findings and recommendations will be communicated back to the patient's physician(s) either via the shared medical record or mail. Follow-up is expected to be with me at the [facility]. Ms. Ho began to notice some numbness starting around 2020. This was primarily in her left leg/foot. Over the years, this has spread, but it has always been worse on her left. Now it is worse in the hands than in the feet (though it was previously worse on the left). At the beginning of 2023, Ms. Ho noticed that when she moved her eyes, they felt jittery. She also felt a bit nauseated. Ms. Ho notes that in March she noticed she couldn't use her left hand properly. She couldn't type and she couldn't manipulate her fingers well. She saw orthopedics and was referred to Dr. Gray. After a month, the fingers were still numb but she is now better able to control it. Dr. Gray obtained an MRI, which raised suspicion for multiple sclerosis. She has not been treated with steroids. The hand numbness is worse than her baseline. She doesn't think it has ever been this consistently bad before. At times, she has felt some weakness in her legs. Exercise tends to make things worse. She has not clearly noticed that there is worsening with heat exposure. Ms. Ho also admits to some cognitive difficulties. She has trouble remembering things at times. Prior to the above, she denies any history of episodic neurologic impairment that might be consistent with [employer] demyelination, such as unilateral visual loss, focal weakness/numbness, slurred speech or facial droop. PAST HISTORY: PAST MEDICAL HISTORY Diagnosis Date Multiple sclerosis (HCC) PAST SURGICAL HISTORY Procedure Laterality Date PAST SURGICAL HISTORY OF Intrauterine septum resection TONSILLECTOMY & ADENOIDECTOMY <AGE 11 2002 Transfusions: None No current outpatient medications on file. No current facility-administered medications for this visit. Social History Tobacco Use Smoking status: Never Smokeless tobacco: Never Vaping Use Vaping status: Never Used Substance Use Topics Alcohol use: Yes Alcohol/week: 4.0 standard drinks of alcohol Types: 4 Standard drinks or equivalent per week Comment: every other day 1 drink Drug use: Never FAMILY HISTORY Problem Relation Age of Onset No Known Problems Mother No Known Problems Father Anesthesia Problems No Family History Multiple Sclerosis No Family History REVIEW OF SYSTEMS: Comprehensive review of systems otherwise was negative, including constitutional, head and neck, cardiovascular, pulmonary, gastrointestinal, endocrine, urologic, reproductive, rheumatic, hematologic, immunologic, dermatologic, and psychiatric. Nutritional concerns: None Driving issues: None Concerns regarding living situation and safety at home: None Risk of falls: None Pain: None PHYSICAL EXAM: 05/26/24 0753 BP: 126/81 Pulse: 61 SpO2: 100% Weight: 85.7 kg (188 lb 15 oz) Height: 177.8 cm (5' 10") Hair, skin, nails, and joints were normal. Neck was supple without Lhermitte's phenomenon. There was no percussion tenderness over the spine. Carotids were 2+ without bruits. Thyroid was normal. The patient was alert and oriented to person, place, and time with normal language, attention and concentration, recent and remote memory, praxis, and intellectual function. Affect was normal. The patient did not appear depressed. Visual acuity to near card was as follows: OD= 20/20 (with glasses) OS= 20/20 (with glasses). Visual hdz were full to confrontation. Pupils were 6 mm and briskly reactive OU without a relative afferent pupillary defect. Funduscopic examination was normal without disc edema, erythema, or atrophy. Ocular ductions were full without nystagmus or ataxia. Facial sensation was normal. Muscles of mastication and facial expression moved normally. Hearing was normal. Gag reflex and palatal movements were normal. Sternocleidomastoid and trapezius power were normal. Tongue movements were normal. There was no dysarthria. Motor Examination: There was no pronator drift. No fasciculations. Right Upper Extremity: (of 5) Left Upper Extremity: (of 5) Deltoid 5 Deltoid 5 Biceps 5 Biceps 5 Triceps 5 Triceps 5 Finger extensors 4+ Finger extensors 4+ Finger flexors 5 Finger flexors 5 Dorsal interossei 5- Dorsal interossei 5- Abductor pollicis 5 Abductor pollicis 5 Tone (Juan Carlos scale) 0 Tone (Juan Carlos scale) 0 Right Lower Extremity: (of 5) Left Lower Extremity: (of 5) Hip flexors 5- Hip flexors 5 Hip extensors 5 Hip extensors 5 Knee flexors 5 Knee flexors 5 Knee extensors 5 Knee extensors 5 Dorsiflexors 5 Dorsiflexors 5 Plantarflexors 5 Plantarflexors 5 Tone (Juan Carlos scale) 0 Tone (Juan Carlos scale) 0 Modified Juan Carlos Score Lopez: 0 - no increase in tone 1 - Slight increase in tone (catch and release at end of ROM) 1+ Slight increase in tone, manifested by a catch followed by min resistance throughout remainder (less than 1/2 ROM) 2 - marked increase in tone through most of ROM, but affected part easily moved 3 - considerable increase in tone; passive movement difficult 4 - Affected part rigid Reflexes: brachioradialis ++ brachioradialis ++ biceps ++ biceps ++ triceps ++ triceps ++ patellar ++ patellar ++ ankle jerk ++ ankle jerk ++ plantar response down plantar response down There is bilateral dystaxia / dysdiadochokinesia of the upper extremities. Heel to perez is intact bilaterally. Sensory examination: Pinprick: Reduced distally in the feet. Vibration: Mildly impaired in the bilateral lower extremities. Proprioception: Normal bilateral lower extremities. Standard gait was normal. Heel and toe walking were normal but she had mild difficulty with tandem gait. Neuro-QoL Functions (higher = better functioning) Flowsheet Row Office Visit from 05/26/2024 in Neurology Upper Extremity Domain T Score 34 Lower Extremity Domain T Score 46 Cognitive Function Domain T Score 34 Positive Affect Well Being T Score -- Ability To Participate In Social Roles T Score 46 Satisfaction With Social Roles T Score 43 Neuro-QoL Symptoms (higher = worse symptoms) Flowsheet Row Office Visit from 05/26/2024 in Neurology Sleep Domain T Score 67 Fatigue Domain T Score 50 Anxiety Domain T Score 61 Depression Domain T Score 57 Stigma Domain T Score 56 Emotional Behavior Dyscontrol T Score -- REVIEW OF IMAGING STUDIES: I reviewed the following studies: Latest Ref Rng 05/14/2024 Methylmalonic Acid <=0.40 umol/L 0.10 Latest Ref Rng 05/07/2024 WSR 0 - 20 mm/hr 8 CRP <0.9 mg/dL <0.3 Rheumatoid Factor <16 IU/mL 12 KENISHA Scr Qual Negative Negative PINKY <=52 U/L 37 Lyme Abs, IgG/IgM Negative Negative Latest Ref Rng 04/30/2024 Albumin 3.43 - 5.41 g/dL 4.15 Alpha 1 Globulin 0.18 - 0.43 g/dL 0.24 Alpha 2 Globulin 0.42 - 0.98 g/dL 0.55 Beta Globulin 0.61 - 1.17 g/dL 0.66 Gamma Globulin 0.53 - 1.51 g/dL 1.11 Interpretation (Prot Electro) No definitive M protein is identified on protein electrophoresis. No definitive M protein is identified on protein electrophoresis. M-Protein Location -- M-Protein Concentration <=0.00 g/dL 0.00 SPE Staff Review Reviewed by Dr. Trevor Reddy MD Comment (Serum Prot Electro) Monoclonal Protein analysis (immunofixation) is not indicated. TSH 0.270 - 4.200 mIU/L 2.320 Vitamin B12 232 - 1,245 pg/mL 319 Folate >4.7 ng/mL 15.4 Vitamin B6, Plasma 20.0 - 125.0 nmol/L 62.4 Vitamin B1 (TDP), Whole Blood 84.3 - 213.3 nmol/L 130.5 Copper 80 - 155 ug/dL 90 Protein, Total 6.3 - 8.0 g/dL 6.7 30 April 2024: MRI brain with and without contrast: There is a mild-moderate burden of T2/FLAIR hyperintensities. These include juxtacortical, periventricular, and infratentorial lesions, including a prominent lesion of the left jony near the middle cerebellar peduncle. There is a juxtacortical enhancing lesion on the left. 30 April 2024: MRI cervical spine with and without contrast: There are multifocal cervical cord lesions including at the cervicomedullary junction, at C2, and at C3-C4. Several of the lesions enhance. ASSESSMENT: Tyler Ho is a 28 year old woman with multiple sclerosis. Her neurological examination is notable for some hand weakness, dystaxia, sensory deficits and difficulty with tandem gait. The diagnosis of MS is supported by her clinical history, MRI findings, and exam findings. The involvement of the cervical spine is fairly extensive and I would favor starting her on highly effective therapy. We discussed Tysabri and Ocrevus including the risks and benefits of each. She is hoping to start a family soon, so I favor Ocrevus as an agent that is possible to attempt on while also giving MS protection. I recommended that we get the MS under control before she starts to try to get . She does appear to still be in a relapse presently, so I am also going to give her high dose steroids, particularly given the degree of enhancement seen on her MRI. PLAN: High dose steroids x 3 days, then prednisone taper. Twice daily pepcid while on steroids. Ocrevus treatment plan entered. Ocrevus consent obtained. Check CBC+Diff, CMP, quantiferon, remote hepatitis panel, JCV, CDS1, vitamin D, IgG, IgM. Start vitamin B12 1,000 micrograms daily. Follow-up in about 2 months. I spent 70 minutes on the date of service, which included preparing to see the patient, [id number] patient care, performing a medically appropriate examination, completing clinical documentation, reviewing records, and counseling/educating the patient/family. Maria Teresa Eaton MD Staff Neurologist [facility] documented in this encounter [facility] 05-21-2024 Telephone encounter Note [facility] NEW PATIENT REFERRAL TRIAGE Referral source:internal referral referring provider defined for this encounter.Isaac Mullins MD Referral Reason: for a second opinion on neurological symptoms Care Everywhere Completed Connection: [x]Yes or []No Date Requested: 05/21/24 Method of Request: Called in Request [x] or Faxed Request [] MyChart Account?: [x]Yes or []No Sherrill Rosales LPN [facility] 05-21-2024 Miscellaneous Notes [facility] NEW PATIENT REFERRAL TRIAGE Referral source:internal referral referring provider defined for this encounter.Isaac Mullins MD Referral Reason: for a second opinion on neurological symptoms Care Everywhere Completed Connection: [x]Yes or []No Date Requested: 05/21/24 Method of Request: Called in Request [x] or Faxed Request [] MyChart Account?: [x]Yes or []No Sherrill Rosales LPN documented in this encounter [facility] 05-20-2024 Telephone encounter Note Spoke with patient who said that she needs the actual imaging not the report. Informed that our office does not provide that and she would need to request a copy of the imaging disc from radiology. They could mail it to her physician office or she could pick it up. She verbalized understanding. The physician that needs the imaging is a non - [facility] physician. [facility] 05-20-2024 Miscellaneous Notes Spoke with patient who said that she needs the actual imaging not the report. Informed that our office does not provide that and she would need to request a copy of the imaging disc from radiology. They could mail it to her physician office or she could pick it up. She verbalized understanding. The physician that needs the imaging is a non - [facility] physician. documented in this encounter [facility] 05-14-2024 Note HNO ID: [id number] Author: VINOD GRAY MD Service: ? Author Type: Physician Type: Progress Notes Filed: 05/14/2024 17:55 Note Text: She is seen in follow-up today because of somatosensory symptoms as well as weakness/clumsiness of the left hand/fingers. There has been significant improvement in the left hand symptomatology. The results of the magnetic resonance imaging of the brain and cervical spine demonstrated numerous T2 hyperintense lesions throughout the bilateral supratentorial and left infratentorial brain as well as multifocally throughout the cervical spinal cord. Many of these lesions demonstrated abnormal postcontrast enhancement. The initial laboratory studies that we had requested together with subsequent further studies were unremarkable save for a low but still normal vitamin B12 level. Today on examination she is awake, alert, pleasant, cooperative and coherent. Her stance is minimally wide-based and the gait is similarly ataxic. There is at least borderline rombergism. The rapid alternating movements of the fingers are well-preserved save for a minimal to mild decrement on the left. [id number] testing is today performed well bilaterally. Cranial Nerves: II-visual hdz full III IV -extraocular movements normal VII-muscles of facial expression normal in power bilaterally Motor System: Strength in the deltoids, biceps, triceps, wrist extensors, finger extensors, interossei, iliopsoas, quadriceps, hamstrings, anterior tibialis and toe extensors is well-preserved. There is no significant tendon reflex asymmetry and no definite Babinski response. In summary, there has been significant improvement. 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 After further consideration we will refer her to one of our colleagues who specializes in these entities. Follow-up will be on an as-needed basis. [facility] 05-14-2024 History of Present illness Narrative She is seen in follow-up today because of somatosensory symptoms as well as weakness/clumsiness of the left hand/fingers. There has been significant improvement in the left hand symptomatology. The results of the magnetic resonance imaging of the brain and cervical spine demonstrated numerous T2 hyperintense lesions throughout the bilateral supratentorial and left infratentorial brain as well as multifocally throughout the cervical spinal cord. Many of these lesions demonstrated abnormal postcontrast enhancement. The initial laboratory studies that we had requested together with subsequent further studies were unremarkable save for a low but still normal vitamin B12 level. Today on examination she is awake, alert, pleasant, cooperative and coherent. Her stance is minimally wide-based and the gait is similarly ataxic. There is at least borderline rombergism. The rapid alternating movements of the fingers are well-preserved save for a minimal to mild decrement on the left. [id number]-zc-[id number] testing is today performed well bilaterally. Cranial Nerves: II-visual hdz full III IV -extraocular movements normal VII-muscles of facial expression normal in power bilaterally Motor System: Strength in the deltoids, biceps, triceps, wrist extensors, finger extensors, interossei, iliopsoas, quadriceps, hamstrings, anterior tibialis and toe extensors is well-preserved. There is no significant tendon reflex asymmetry and no definite Babinski response. In summary, there has been significant improvement. 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 After further consideration we will refer her to one of our colleagues who specializes in these entities. Follow-up will be on an as-needed basis. documented in this encounter [facility] 05-01-2024 Telephone encounter Note Returned telephone call to patient to discuss results of MRI brain and cervical spine including differential diagnosis. Have ordered additional laboratory studies. Vinod Gray MD [facility] 05-01-2024 Miscellaneous Notes Returned telephone call to patient to discuss results of MRI brain and cervical spine including differential diagnosis. Have ordered additional laboratory studies. Vinod Gray MD MRI CERVICAL SPINE WO/W IVCON (Order #[id number]) on 04/30/2024 - Order Result History Report MRI BRAIN WO/W IVCON (Order #[id number]) on 04/30/2024 - Order Result History Report See below message and advise. Patient called with concerns about her recent brain MRI results. Per patient, the report on [facility] indicated numerous lesions. She is concerned. Please contact patient at [phone]. documented in this encounter [facility] 05-01-2024 Telephone encounter Note MRI CERVICAL SPINE WO/W IVCON (Order #[id number]) on 04/30/2024 - Order Result History Report MRI BRAIN WO/W IVCON (Order #[id number]) on 04/30/2024 - Order Result History Report See below message and advise. [facility] 05-01-2024 Telephone encounter Note Patient called with concerns about her recent brain MRI results. Per patient, the report on MyChart indicated numerous lesions. She is concerned. Please contact patient at [phone]. [facility] 04-30-2024 History of Present illness Narrative Radiology Service Progress Note DATE OF SERVICE: April 30, 2024 TIME: 2:41 PM PATIENT IDENTITY VERIFICATION COMPLETED USING TWO (2) STANDARD IDENTIFIERS: Name and Date of confirmed by patient verbally and Name and Date of confirmed by identification band. FALL SCREENING: Has the patient had 2 falls in the last year or 1 fall with injury or currently using an Ambulatory Assistive Device (Walker, Cane, Wheelchair, Crutches, etc.)? No PATIENT GENDER DATA: Female. status: : No status: NO. PATIENT RELEVANT IMPLANT DATA REVIEWED: Yes PATIENT PRESENTS WITH AN IMPLANTABLE OR ATTACHED NUTRITION CONSULTANT: No ALLERGIES: Reviewed and unchanged CONTRAST ALLERGY: NO. EXAM: MRI - CONTRAST TYPE: GROUP II PERIPHERAL IV DATA: Ambulatory: A peripheral IV was started in the Left antecubital site with a Angio cath: 22 gauge. RADIOLOGY DEPARTMENT: MR; Exam(s) Completed: Head: Multiple Sclerosis Spine: Cervical spine SIGNATURE: Alyce Mercedes, CT PATIENT NAME: Tyler Ho DATE: April 30, 2024 TIME: 2:41 PM documented in this encounter [facility] 04-30-2024 Note HNO ID: [id number] Author: ALYCE MERCEDES CT Service: Radiology Author Type: Technologist Type: Progress Notes Filed: 04/30/2024 14:41 Note Text: Radiology Service Progress Note DATE OF SERVICE: April 30, 2024 TIME: 2:41 PM PATIENT IDENTITY VERIFICATION COMPLETED USING TWO (2) STANDARD IDENTIFIERS: Name and Date of confirmed by patient verbally and Name and Date of confirmed by identification band. FALL SCREENING: Has the patient had 2 falls in the last year or 1 fall with injury or currently using an Ambulatory Assistive Device (Walker, Cane, Wheelchair, Crutches, etc.)? No PATIENT GENDER DATA: Female. status: : No status: NO. PATIENT RELEVANT IMPLANT DATA REVIEWED: Yes PATIENT PRESENTS WITH AN IMPLANTABLE OR ATTACHED NUTRITION CONSULTANT: No ALLERGIES: Reviewed and unchanged CONTRAST ALLERGY: NO. EXAM: MRI - CONTRAST TYPE: GROUP II PERIPHERAL IV DATA: Ambulatory: A peripheral IV was started in the Left antecubital site with a Angio cath: 22 gauge. RADIOLOGY DEPARTMENT: MR; Exam(s) Completed: Head: Multiple Sclerosis Spine: Cervical spine SIGNATURE: SONIA Zhou PATIENT NAME: Tyler Ho DATE: April 30, 2024 TIME: 2:41 PM [facility] 04-21-2024 Telephone encounter Note Received corespondence from [facility] stating peer to peer needed for MRI Brain w/wo contrast [id number]. Denial reason was that there has been a previously approved MRI Brain and that it needs to be confirmed that the prior approved study has not been completed. Spoke with textile designs sales representative Cynthia at [facility] and informed that per note with patient on 04/02: She has not had magnetic resonance imaging of the the brain or spinal axis. Cynthia said Authorization for MRI Brain is [id number] and C-spine MRI authorization is [id number]. Message sent to pre access with the above information. [facility] 04-02-2024 History and physical note Ms. Tyler Anderson is referred by Dr. Pilar Ortiz for an initial outpatient consultation because of somatosensory symptoms. She is a 28-year-old right-handed white female with a past medical history that is otherwise insignificant. She is here primarily because of a sense of numbness in the left hand as though she was "wearing a glove" together with impaired fine motor skills in this hand chiefly noted with typing and other similar activities. This is part of a wider issue involving somatosensory symptoms that began gradually in her legs perhaps more so on the left approximately three years ago this involved the top of the thigh as well as the knee but not the foot. My overall sense is that since then this has been a persistent albeit fluctuating phenomenon which gradually migrated to involve the left side of the neck, cheek and even inside the mouth. Although fluctuating it has become more prominent particularly in the last few weeks. Involvement of the left hand began shortly after the lower extremities as previously delineated. Other areas of involvement perhaps more sporadically have included the abdomen and the saddle region. There are no clear-cut aggravating factors save for her noticing that the symptoms tend to be most prominent in the morning and later in the day she believes perhaps because during the day itself she is focused on other things. She reports that physical activity as well as alcoholic beverages tend to aggravate the symptoms. There are no clear-cut relieving factors aside from avoiding those that aggravate the symptoms. She does relate that she has a fair bit of stiffness and aching in the cervical and "shoulder" regions. There is no history suggestive of Uhthoff's phenomenon but there is at least an equivocal history consistent with Lhermitte's. She denies any dragging of a leg, history suggestive of Optic Neuritis, unexplained vertigo or other somatosensory symptoms. There is at least an equivocal history of a constricted sensation around her waist or pelvis. An EMG performed in 2022 was unremarkable and she advises that because of an elevated antinuclear antibody she underwent a rheumatologic evaluation that did not demonstrate definite findings consistent with an underlying rheumatologic disease. She has not had magnetic resonance imaging of the the brain or spinal axis. Past Medical History: Her past medical history is as previously delineated. Family History: There is no history in her family of inherited problems with coordination, Multiple Sclerosis, muscular dystrophy, peripheral nerve disease, parkinsonism, recurrent troublesome headaches or seizure disorder. Her maternal great grandmother had dementia. Psychosocial History: She has been six years and has no children. She does not smoke. She has 2-3 drinks monthly. She is employed in [employer] and [employer]. Review of Systems. As of late she has been having headaches which are not particularly troublesome. These involve the eyes and the posterior head region. They may occur up to every other day or so. She believes she may have fainted on a few occasions when she has forgotten to eat. She denies any history of seizures. Likewise she denies any weakness, wasting, unusual cramping or twitching of her muscles, numbness or tingling aside from what we have already mentioned. She has noticed occasional twitching and cramping in her hands. There are no visual difficulties aside from wearing corrective lenses and she denies any aberration of her sense of hearing, taste or smell. Speech, swallowing, bladder and bowel function are unimpaired. She has lost consciousness for 30 to 60 seconds on 3 occasions secondary to head trauma. There is no history of fracture of the spinal column, meningitis or encephalitis. Neurologic examination on April 02, 2024 revealed an awake, alert, pleasant, cooperative and coherent woman. Her stance is mildly wide-based and I suspect the gait was similarly ataxic. There was a most borderline Rhomberg exam. We did not have her walk tandem today. The rapid alternating movements of the tongue fingers and toes were performed well save for a moderate decrement in the left fingers. Finger-nose testing was performed well on the right but there was at least a mild to moderate appendicular ataxia as she approached the target on the left. Cranial Nerves: II-visual hdz full, fundi benign although I query the possibility of left optic atrophy III IV -extraocular movements normal VII-muscles of facial expression normal in power bilaterally XII-tongue midline Motor System: Strength in the deltoids, biceps, triceps, wrist extensors, finger extensors, interossei, iliopsoas, quadriceps, hamstrings, anterior tibialis and toe extensors was normal save for mild to moderate weakness of the left interossei and finger extensors with mild weakness of the left wrist extensors. The tendon reflexes were a bit decreased on the left and there was no Babinski response (mute). Sensory System: Joint position and vibration sensation were intact save for a moderate decrement of vibration sensation in the right great toe and at least a moderate decrement of joint position sensation in the left index finger. Other Observations: There was at least a mild to moderately increased amount of muscle tension in the cervical paraspinal and trapezius musculature bilaterally. A few palpable tender areas were evident and firm pressure on these resulted in increased discomfort but did not definitely intensify or precipitate any somatosensory symptoms. In summary, the history and examination suggest that her symptoms may well be primarily neurologic in etiology. More precisely a persistent albeit fluctuating inflammatory process involving the central nervous system perhaps primarily at the cervical spinal level is suspected although one could not completely exclude an element of polyradiculopathy on a clinical basis. Because of these considerations we have ordered an MRI scan of the brain and cervical spine without and with contrast. Because of the sensory findings we have also requested laboratory studies to consist of a B-12, B-6, -B-1, serum folate, blood copper, serum protein as well as immunofixation electrophoresis. She will be seen in follow-up once the evaluation has been completed. [facility] 04-02-2024 History and physical note Ms. Tyler Anderson is referred by Dr. Pilar Ortiz for an initial outpatient consultation because of somatosensory symptoms. She is a 28-year-old right-handed white female with a past medical history that is otherwise insignificant. She is here primarily because of a sense of numbness in the left hand as though she was "wearing a glove" together with impaired fine motor skills in this hand chiefly noted with typing and other similar activities. This is part of a wider issue involving somatosensory symptoms that began gradually in her legs perhaps more so on the left approximately three years ago this involved the top of the thigh as well as the knee but not the foot. My overall sense is that since then this has been a persistent albeit fluctuating phenomenon which gradually migrated to involve the left side of the neck, cheek and even inside the mouth. Although fluctuating it has become more prominent particularly in the last few weeks. Involvement of the left hand began shortly after the lower extremities as previously delineated. Other areas of involvement perhaps more sporadically have included the abdomen and the saddle region. There are no clear-cut aggravating factors save for her noticing that the symptoms tend to be most prominent in the morning and later in the day she believes perhaps because during the day itself she is focused on other things. She reports that physical activity as well as alcoholic beverages tend to aggravate the symptoms. There are no clear-cut relieving factors aside from avoiding those that aggravate the symptoms. She does relate that she has a fair bit of stiffness and aching in the cervical and "shoulder" regions. There is no history suggestive of Uhthoff's phenomenon but there is at least an equivocal history consistent with Lhermitte's. She denies any dragging of a leg, history suggestive of Optic Neuritis, unexplained vertigo or other somatosensory symptoms. There is at least an equivocal history of a constricted sensation around her waist or pelvis. An EMG performed in 2022 was unremarkable and she advises that because of an elevated antinuclear antibody she underwent a rheumatologic evaluation that did not demonstrate definite findings consistent with an underlying rheumatologic disease. She has not had magnetic resonance imaging of the the brain or spinal axis. Past Medical History: Her past medical history is as previously delineated. Family History: There is no history in her family of inherited problems with coordination, Multiple Sclerosis, muscular dystrophy, peripheral nerve disease, parkinsonism, recurrent troublesome headaches or seizure disorder. Her maternal great grandmother had dementia. Psychosocial History: She has been six years and has no children. She does not smoke. She has 2-3 drinks monthly. She is employed in [employer] and [employer]. Review of Systems. As of late she has been having headaches which are not particularly troublesome. These involve the eyes and the posterior head region. They may occur up to every other day or so. She believes she may have fainted on a few occasions when she has forgotten to eat. She denies any history of seizures. Likewise she denies any weakness, wasting, unusual cramping or twitching of her muscles, numbness or tingling aside from what we have already mentioned. She has noticed occasional twitching and cramping in her hands. There are no visual difficulties aside from wearing corrective lenses and she denies any aberration of her sense of hearing, taste or smell. Speech, swallowing, bladder and bowel function are unimpaired. She has lost consciousness for 30 to 60 seconds on 3 occasions secondary to head trauma. There is no history of fracture of the spinal column, meningitis or encephalitis. Neurologic examination on April 02, 2024 revealed an awake, alert, pleasant, cooperative and coherent woman. Her stance is mildly wide-based and I suspect the gait was similarly ataxic. There was a most borderline Rhomberg exam. We did not have her walk tandem today. The rapid alternating movements of the tongue fingers and toes were performed well save for a moderate decrement in the left fingers. Finger-nose testing was performed well on the right but there was at least a mild to moderate appendicular ataxia as she approached the target on the left. Cranial Nerves: II-visual hdz full, fundi benign although I query the possibility of left optic atrophy III IV -extraocular movements normal VII-muscles of facial expression normal in power bilaterally XII-tongue midline Motor System: Strength in the deltoids, biceps, triceps, wrist extensors, finger extensors, interossei, iliopsoas, quadriceps, hamstrings, anterior tibialis and toe extensors was normal save for mild to moderate weakness of the left interossei and finger extensors with mild weakness of the left wrist extensors. The tendon reflexes were a bit decreased on the left and there was no Babinski response (mute). Sensory System: Joint position and vibration sensation were intact save for a moderate decrement of vibration sensation in the right great toe and at least a moderate decrement of joint position sensation in the left index finger. Other Observations: There was at least a mild to moderately increased amount of muscle tension in the cervical paraspinal and trapezius musculature bilaterally. A few palpable tender areas were evident and firm pressure on these resulted in increased discomfort but did not definitely intensify or precipitate any somatosensory symptoms. In summary, the history and examination suggest that her symptoms may well be primarily neurologic in etiology. More precisely a persistent albeit fluctuating inflammatory process involving the central nervous system perhaps primarily at the cervical spinal level is suspected although one could not completely exclude an element of polyradiculopathy on a clinical basis. Because of these considerations we have ordered an MRI scan of the brain and cervical spine without and with contrast. Because of the sensory findings we have also requested laboratory studies to consist of a B-12, B-6, -B-1, serum folate, blood copper, serum protein as well as immunofixation electrophoresis. She will be seen in follow-up once the evaluation has been completed. documented in this encounter [facility] 04-01-2024 Nurse Note Patient received a left cock up wrist splint in office. Brace fit in office. Care instructions reviewed. Signature obtained. [facility] Work Phone: 04-01-2024 Nurse Note Patient received a left cock up wrist splint in office. Brace fit in office. Care instructions reviewed. Signature obtained. documented in this encounter [facility] 04-01-2024 Pilar Mendoza MD - 04/01/2024 9:44 AM EDT Images from the original note were not included. Carpal Tunnel Syndrome Carpal tunnel syndrome is a common condition that causes pain, numbness, and tingling in the hand and arm. The condition occurs when one of the major nerves to the hand -- the median nerve -- is squeezed or compressed as it travels through the wrist. In most patients, carpal tunnel syndrome gets worse over time, so early diagnosis and treatment are important. Early on, symptoms can often be relieved with simple measures like wearing a wrist splint or avoiding certain activities. If pressure on the median nerve continues, however, it can lead to nerve damage and worsening symptoms. To prevent permanent damage, surgery to take pressure off the median nerve may be recommended for some patients. Anatomy The carpal tunnel is a narrow passageway in the wrist, about an inch wide. The floor and sides of the tunnel are formed by small wrist bones called carpal bones. Reproduced and adapted from Jorge Luis C, Leonora A, Rimma E: Carpal tunnel syndrome. Orthopaedic Knowledge Online Journal. [place], [place], [employer], 2009; 7(5). Accessed October 2015. The carpal tunnel protects the median nerve and flexor tendons that bend the fingers and thumb. The roof of the tunnel is a strong band of connective tissue called the transverse carpal ligament. Because these boundaries are very rigid, the carpal tunnel has little capacity to "stretch" or increase in size. The median nerve is one of the main nerves in the hand. It originates as a group of nerve roots in the neck. These roots come together to form a single nerve in the arm. The median nerve goes down the arm and forearm, passes through the carpal tunnel at the wrist, and goes into the hand. The nerve provides feeling in the thumb and index, middle, and ring fingers. The nerve also controls the muscles around the base of the thumb. The nine tendons that bend the fingers and thumb also travel through the carpal tunnel. These tendons are called flexor tendons. Description Carpal tunnel syndrome occurs when the tunnel becomes narrowed or when tissues surrounding the flexor tendons swell, putting pressure on the median nerve. These tissues are called the synovium. Normally, the synovium lubricates the tendons, making it easier to move your fingers. Carpal tunnel syndrome is caused by pressure on the median nerve as it travels through the carpal tunnel. When the synovium swells, it takes up space in the carpal tunnel and, over time, crowds the nerve. This abnormal pressure on the nerve can result in pain, numbness, tingling, and weakness in the hand. Cause Most cases of carpal tunnel syndrome are caused by a combination of factors. Studies show that women and older people are more likely to develop the condition. Other risk factors for carpal tunnel syndrome include: Heredity. This is likely an important factor. The carpal tunnel may be smaller in some people or there may be anatomic differences that change the amount of space for the nerve--and these traits can run in families. Repetitive hand use. Repeating the same hand and wrist motions or activities over a prolonged period of time may aggravate the tendons in the wrist, causing swelling that puts pressure on the nerve. Hand and wrist position. Doing activities that involve extreme flexion or extension of the hand and wrist for a prolonged period of time can increase pressure on the nerve. . Hormonal changes during can cause swelling. Health conditions. Diabetes, rheumatoid arthritis, and thyroid gland imbalance are conditions that are associated with carpal tunnel syndrome. Symptoms Symptoms of carpal tunnel syndrome may include: Numbness, tingling, burning, and pain--primarily in the thumb and index, middle, and ring fingers Occasional shock-like sensations that radiate to the thumb and index, middle, and ring fingers Pain or tingling that may travel up the forearm toward the shoulder Weakness and clumsiness in the hand--this may make it difficult to perform fine movements such as buttoning your clothes Dropping things--due to weakness, numbness, or a loss of proprioception (awareness of where your hand is in space) In most cases, the symptoms of carpal tunnel syndrome begin gradually--without a specific injury. Many patients find that their symptoms come and go at first. However, as the condition worsens, symptoms may occur more frequently or may persist for longer periods of time. Night-time symptoms are very common. Because many people sleep with their wrists bent, symptoms may awaken you from sleep. During the day, symptoms often occur when holding something for a prolonged period of time with the wrist bent forward or backward, such as when using a phone, driving, or reading a book. Many patients find that moving or shaking their hands helps relieve their symptoms. Doctor Examination Physical Examination During your evaluation, your doctor will talk to you about your general health and medical history and will ask about your symptoms. Your doctor will try to bring about your symptoms. He or she may bend and hold your wrists in different positions to test for tingling or numbness in your hands. Pressing down or tapping along the median nerve may also recreate your symptoms. Tests Electrophysiological tests. These tests will help your doctor measure how well your median nerve is working and help determine whether there is too much pressure on the nerve. The tests will also help your doctor determine whether you have another nerve condition, such as neuropathy, or other sites of nerve compression that might be contributing to your symptoms. Electrophysiological tests may include: Nerve conduction studies. These tests measure the signals travelling in the nerves of your hand and arm and can detect when a nerve is not conducting its signal effectively. Nerve conduction studies can help your doctor determine how severe your problem is and help to guide treatment. Electromyogram (EMG). An EMG measures the electrical activity in muscles. EMG results can show whether you have any nerve or muscle damage. Ultrasound. An ultrasound uses high-frequency sound waves to help create pictures of bone and tissue. Your doctor may recommend an ultrasound of your wrist to evaluate the median nerve for signs of compression. X-rays. X-rays provide images of dense structures, such as bone. If you have limited wrist motion or wrist pain, your doctor may order x-rays to exclude other causes for your symptoms, such as arthritis, ligament injury, or a fracture. Magnetic resonance imaging (MRI) scans. These studies provide better images of the body's soft tissues. Your doctor may order an MRI to help determine other causes for your symptoms or to look for abnormal tissues that could be impacting the median nerve. An MRI can also help your doctor determine if there are problems with the nerve itself--such as scarring from an injury or tumor. Treatment Although it is a gradual process, for most people carpal tunnel syndrome will worsen over time without some form of treatment. For this reason, it is important to be evaluated and diagnosed by your doctor early on. In the early stages, it may be possible to slow or stop the progression of the disease. Nonsurgical Treatment If diagnosed and treated early, the symptoms of carpal tunnel syndrome can often be relieved without surgery. If your diagnosis is uncertain or if your symptoms are mild, your doctor will recommend nonsurgical treatment first. Wearing a splint or brace reduces pressure on the median nerve by keeping your wrist straight. Nonsurgical treatments may include: Bracing or splinting. Wearing a brace or splint at night will keep you from bending your wrist while you sleep. Keeping your wrist in a straight or neutral position reduces pressure on the nerve in the carpal tunnel. It may also help to wear a splint during the day when doing activities that aggravate your symptoms. Nonsteroidal anti-inflammatory drugs (NSAIDs). Medications such as ibuprofen and naproxen can help relieve pain and inflammation. Activity changes. Symptoms often occur when your hand and wrist are in the same position for too long--particularly when your wrist is flexed or extended. If your job or recreational activities aggravate your symptoms, changing or modifying these activities can help slow or stop progression of the disease. In some cases, this may involve making changes to your work site or work station. Nerve gliding exercises. Some patients may benefit from exercises that help the median nerve move more freely within the confines of the carpal tunnel. Steroid injections. Corticosteroid, or cortisone, is a powerful anti-inflammatory agent that can be injected into the carpal tunnel. Although these injections often relieve painful symptoms or help to calm a flare up of symptoms, their effect is sometimes only temporary. A cortisone injection may also be used by your doctor to help diagnose your carpal tunnel syndrome. Surgical Treatment If nonsurgical treatment does not relieve your symptoms after a period of time, your doctor may recommend surgery. The decision whether to have surgery is based on the severity of your symptoms--how much pain and numbness you are having in your hand. In long-standing cases with constant numbness and wasting of your thumb muscles, surgery may be recommended to prevent irreversible damage. Surgical Procedure The surgical procedure performed for carpal tunnel syndrome is called a "carpal tunnel release." This increases the size of the tunnel and decreases pressure on the median nerve. The transverse carpal ligament is cut during carpal tunnel release surgery. When the ligament heals, there is more room for the nerve and tendons. In most cases, carpal tunnel surgery is done on an outpatient basis. Hand Surgeons - Call to schedule Carpal Tunnel Syndrome Rehabilitation Exercises Apply heat to the hand for 15 minutes before performing the exercises, and apply ice (a bag of crushed ice or frozen peas) to the hand for 20 minutes after each exercise session to prevent inflammation. If numbness steadily worsens, if the exercises increase the pain, or if the pain does not improve after you have performed the exercises for 3 to 4 weeks, call your doctor. Nerve and Tendon Gliding - With the affected hand raised, make a fist with the thumb outside the fingers (1). - Extend the fingers, keeping the thumb close to the side of the hand (2). - Extend the hand at the wrist (bend it backward, toward the forearm), keeping the fingers straight (3). - With the wrist straight, extend the thumb as shown (4). - Keeping the thumb extended, extend the hand at the wrist (5). - Reach behind your hand and grasp the thumb with the thumb and forefinger of the opposite hand. Pull the thumb downward, away from the palm of your hand (6). - Repeat 10 to 15 times. - Perform the exercises 6 to 7 days a week, for 3 to 4 weeks. documented in this encounter [facility] 04-01-2024 History of Present illness Narrative Images from the original note were not included. Tyler Ho is a patient of No primary care provider on file.. CHIEF COMPLAINT: Tyler Ho is a 28 year old female who presents today for new evaluation. HISTORY OF PRESENT ILLNESS: PAIN EVALUATION 03/31/2024 1427 Pain Level: 5 Pain Location: Hand-Left Description: Numbness;Pressure;Pulsating;Shoot ing;Stiffness;Tightness;Tingling Duration Amount of Time: 2 Duration Units: Weeks Frequency: Continuous Intervention/Comfort measure: Reposition;Distractions;Positioni ng Comments: Numbness, stiffness and tingling constant, extreme tightness when I stretch my hand and fingers start curling toward palm. Intermittent stabbing and pulsating. Nearly impossible to do fine motor skills like typing, picking things up ect. Cant feel my hand. right-hand dominant. 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 Injury: No Mechanical Symptoms: No, patient denies locking, popping, or catching Has been having numbness for 3 years Now numbness has worsened significantly, "feels like a glove" Can't open things, unbutton pants, grab small things Weakness Previously seen at [facility] EMG 10/18/22 without abnormality Seen by rheum a couple months ago, nothing significant, labs mildly elevated but workup atypical of rheum Also having whole Left sided numbness Started intense working out a month ago and had worsening symptoms after this Has not tried bracing, therapy Night Pain: Yes PHYSICAL EXAMINATION: RIGHT HAND & WRIST EXAM Inspection: No joint deformities or swelling noted on examination today; some involuntary twitching of the hand and fingers Palpation: no TTP Range of Motion: Finger: normal ROM of all joints of all fingers of both hands Wrist Flexion: normal ROM when compared to the contralateral side Wrist Extension: normal ROM when compared to the contralateral side Wrist Ulnar deviation: normal ROM when compared to the contralateral side Wrist Radial Deviation: normal ROM when compared to the contralateral side Muscle Strength: Wrist extension (C6): 5/5 Wrist flexion (C7): 5/5 Finger abduction: 5/5 Neurologic: Dorsal thumb (radial nerve): Decreased sensation to light touch Index finger (median nerve): Decreased sensation to light touch 5th finger (ulnar nerve): Decreased sensation to light touch Tinel Sign: percussion of the median nerve at the carpal tunnel reproduce symptoms Phalen's Test: reproduced symptoms Carpal compression Test: was negative Hitchhike sign (PIN): 5/5 Ok sign (AIN): 5/ IMAGING: Final results and radiologist's interpretation, available in the [facility] health record. Images were reviewed with the patient/family members in the office today. My personal interpretation of the performed imaging: PA, lateral, and oblique views of the patient's Right hand/wrist were performed today and viewed by me. There is no bony abnormality noted. There is no fracture. The intercarpal distances are normal. The soft tissues are normal. LABS: No results found for: "HBA1C" No results found for: "CREAT" CLINICAL IMPRESSION / ASSESSMENT: (R20.0, R20.2) Numbness and tingling in left hand (primary encounter diagnosis) (R25.8) Slow involuntary movements RECOMMENDATION / PLAN: We discussed that her symptoms are atypical of CTS. EMG in October 2022 was negative although exam today is positive. Previous rheum workup negative. Will trial nocturnal bracing and therapy. Given her movement symptoms, referred to my neurology colleagues for eval. Recommend follow up with me if neuro workup negative. Follow up: if neuro workup negative Films prior to visit: No additional imaging warranted. Pertinent previous records and images reviewed. Verbal health education was given to patient. Patient verbalizes understanding and agrees with the treatment plan as detailed above. Pilar Ortiz MD [facility] Sports and Exercise Medicine documented in this encounter [facility] 02-14-2024 Telephone encounter Note Called the patient she verified her name and date of period started 02-11-24 I advised surgery is scheduled correctly Marilee Carrington RN [facility] 02-14-2024 Miscellaneous Notes Called the patient she verified her name and date of period started 02-11-24 I advised surgery is scheduled correctly Marilee Carrington RN documented in this encounter [facility] 02-11-2024 Instructions Katie Marrero MD - 02/11/2024 5:09 PM EDT Thank you for visiting the [facility]. Our team looks forward to providing you with excellent care to help you achieve your family goals. The best way to contact me is by Vitort. Important phone numbers: [facility] main line: [phone]. Saturday-Saturday 8 AM - 4:30 PM. This number is for questions or scheduling related to your fertility treatments. For patients wanting to schedule surgery or questions related to your surgery call [phone]. After hours emergency only Physician line: [phone] For patients needing to create a medical record/chart for partner: [phone] 2. Sunshine from our office will contact you to schedule the hysteroscopy procedure. documented in this encounter [facility] 01-30-2024 Instructions Taylor Bentley PA-C - 01/30/2024 7:56 AM EDT PATIENT PREOPERATIVE INSTRUCTIONS Katie Marrero MD has scheduled you for your procedure at this surgery center: [facility]: [phone] --[address] [place] [address] Location is near [facility]. Please read below carefully for your personalized instructions. Dietary Restrictions: - No solid food after midnight. - You may have 12 ounces of clear liquids (water, clear juices such as apple juice or gatorade, carbonated beverages, clear tea, black coffee, jello) until 2 hours before scheduled arrival at facility. Medications: Unless instructed differently below, stay on all of your medications until your surgery. If you start any new medications after today's visit, please contact your surgeon. Medications that you may take the morning of your procedure: None If you start any new medications after today's visit, please contact the surgeon's office. Blood Thinning Medications: - Stop NSAIDS (Ibuprofen, Advil, Aleve, Motrin, Celebrex, Mobic, etc.) 7 days before surgery, as directed by your surgeon. - Stop Aspirin 7 days before surgery, as directed by your surgeon. - Stop Vitamin E, ALL multi-vitamins, herbals and dietary supplements 14 days before surgery. - You may take Tylenol (Acetaminophen) or any of your pain medications that do not contain aspirin or NSAIDS as needed. Important Reminders: - Candy, mints, and tobacco products are NOT permitted the morning of surgery. - Hearing aids, dentures and glasses may be worn the morning of surgery. - NO jewelry, body piercings, makeup, hairpins or contacts are to be worn the day of surgery. If you develop symptoms such as a fever, cold, or flu, or have other changes to your health within TWO DAYS of scheduled surgery or the morning of surgery, please contact the surgery center above. Personal Belongings: -Please have photo ID and insurance cards. -If you do not have a copy of advance directives on file with us, please bring a copy with you on the day of surgery. - Leave ALL valuables and money at home or with family members. For Outpatient Procedures: - YOU MUST HAVE A RESPONSIBLE GROCERY SACKER TAKE YOU HOME. A SHEET METAL WORKER HELPER OR BURR BENCH OPERATOR CANNOT BE MADE A RESPONSIBLE GROCERY SACKER. - We recommend that a responsible person stays with you overnight to take care of you. - You cannot stay in a hotel alone after outpatient surgery. You will not be permitted to have your surgery, if you do not have someone to take care of you. Arrival Time for Surgery: - The Surgery Center or hospital where you are having surgery will call the afternoon before surgery (or Saturday for Saturday surgery) with a scheduled arrival time. - If you have not heard by 4 pm, please contact the surgery center above. Please be aware that emergency situations arise, which may delay or change your surgical time. If this happens, we will notify you as soon as possible and regret any inconvenience. If you already have an Advance Directive, please fax a copy to [phone] or email to for it to be added to your chart. If you do not have an Advance Directive, you can find the appropriate form and more information at [email or web address]. We recommend that you complete the Advance Directive form found on the website and bring it with you the day of your surgery. It can be witnessed and scanned into your chart that day. Taylor Bentley PA-C documented in this encounter [facility] 01-30-2024 History and physical note Images from the original note were not included. PREANESTHESIA CONSULT CLINIC TELEHEALTH VISIT Patient has been identified by name and date of : Yes This is a virtual visit using [employer] Video Visit. It require patient-provider interaction for the medical decision making as documented below. Reason for contact: [facility] visit Accompanied by: Self Scheduled Surgery: Procedure(s) (LRB): HYSTEROSCOPY W/ DIVISION/RESECTION INTRAUTERINE SEPTUM (N/A) I have communicated my name and active licensure. The patient's identity and physical location were verified at the time of this visit. Either the patient or their legal textile designs sales representative has been informed of the risks and benefits of -- and alternatives to -- treatment through a remote evaluation and consents to proceed with the evaluation remotely. ASSESSMENT: Assessment: There is no known pertinent medical condition which may affect smith-operative course METS: Walk a block or two on level ground (2.75 METs) Do moderate work around the house such as vacuuming, sweeping floors, or carrying in groceries (3.50 METs) Climb a flight of stairs or walk up a hill (5.50 METs) Patient denies any chest pain or undue shortness of breath with the above physical activity. Hiking every other week ANESTHESIA FINDINGS: Intubation History: No prior intubation as an adult Significant Anesthesia Considerations: None Airway Exam: General: Normal appearance Mallampati Score is CLASS II ULBT: Class I - Lower incisors can bite the upper lip above the ulices line Neck: Normal appearance and function Mouth: Normal tongue size and Mouth opening greater than 2 finger breaths Dentition: Intact Airway History: No abnormal airway history STOP BANG Score: Criteria: Tired Score = 1 Subjective CHIEF COMPLAINT: Patient presents with: Pre-Op Visit HPI: This is a 28 year old female who presents with history of 2nd trimester and late 1st trimester miscarriages. She had further evaluation which revealed septate uterus. She denies pelvic pain, abnormal vaginal bleeding or discharge. She elects to proceed with above procedure. ACTIVE PROBLEM LIST Anxiety and Depression History reviewed. No pertinent past medical history. PAST SURGICAL HISTORY Procedure Laterality Date TONSILLECTOMY & ADENOIDECTOMY FAMILY HISTORY Problem Relation Age of Onset No Known Problems Mother No Known Problems Father Anesthesia Problems No Family History Social History Tobacco Use Smoking status: Never Smokeless tobacco: Never Vaping Use Vaping Use: Never used Substance Use Topics Alcohol use: Yes Comment: every other day 1 drink Drug use: Never ALLERGIES No Known Allergies MEDICATIONS: No current outpatient medications on file. No current facility-administered medications for this visit. COVID-19 Immunization Status Overdue - Covid-19 Vaccine ( season) Never done No completion, postpone, frequency change, or communication history exists for this topic. REVIEW OF SYSTEMS: Pain Assessment: General: No weight loss, malaise or fevers. Neuro: No history of TIA's, stroke, TARGET AIRCRAFT CONTROLLER tumor, impaired sensorium, hemiplegia, paraplegia or quadraplegia. No neurological symptoms or problems. Respiratory: No history of current cough or dyspnea, or pneumonia in the past 6 weeks. No history of respiratory/pulmonary symptoms or problems. Cardiovascular: Positive for: history of murmur as a young adult - had testing about 5 years and was told it was "fine", Negative for Recent [place], Arrhythmia, CAD, Chest Pain, CHF, DVT/PE, edema, orthopnea, syncope GI: No history of GI symptoms or problems. No history of esophageal varices, recent ascites, or ETOH greater than 2 drinks per day. : No history of dysuria, frequency or incontinence,, stones or chronic kidney disease UTILIZATION ENGINEER: See HPI : Denies, Patient's last menstrual period was 01/12/2024. Endocrine: No history of diabetes. Has not taken steroids within the past 30 days. No history of endocrinological symptoms or problems. Hematology: No history of bleeding or clotting disorder. Pt is not taking anti-coagulation or platelet medications. No history of hematological symptoms or problems. Oncology: No history of CA metastasis, chemo within 30 days, or radiotherapy within 90 days. Has not lost 10% of body wt in 6 months. No history of oncological symptoms or problems. Psych: Depression and anxiety - denies current treatment. Denies SI/HI. States doing ok Denies PTSD Musculoskeletal: Joint and back pain - sees chiropractor Skin: recurrent rash on neck - not currently present Objective PHYSICAL EXAM: Pulse 72[patient counted[ Ht 5' 11"[patient reported[ (1.80m) Wt 185 lb (83.9kg) LMP 01/12/2024 BMI 25.81 kg/(m^2). VIDEO EXAM: (if completed, exam performed via video enabled technology) GENERAL: alert and appropriate, in no distress, well-hydrated, well nourished, and happy, smiling, interactive HEAD: normocephalic, no abnormality or lesion noted EYES: no injection NOSE: external nose normal without rhinorrhea NECK: full ROM RESPIRATORY: breathing non-labored and no grunting/flaring/retractions CHEST: equal chest rise with normal respiratory effort HEART: Patient confirmed carotid pulse and motioned with the beat to confirm regular rhythm. HR 72 BPM. No cyanosis ABDOMEN: soft and non-tender NEUROLOGIC: no cerebral deficits noted Diagnostic tests reviewed for today's visit: Lab Value Units Date High Low HB No results within date range. HCT No results within date range. WBC No results within date range. PLT No results within date range. NA No results within date range. K No results within date range. GLUC No results within date range. BUN No results within date range. CREAT No results within date range. PTSEC No results within date range. INR No results within date range. APTT No results within date range. ALT No results within date range. AST No results within date range. TBILI No results within date range. TSH No results within date range. Labs per care everywhere reviewed: 12/13/2023 normal creatinine 06/19/2023 CBC with normal H/H, WBC and platelet CMP - bilirubin 1.3 (0-1.2), otherwise normal PLAN: This patient is optimally prepared for surgery. CONSULTS: Patient does not require consults for optimization at this time. The Following Tests/Procedures Have Been Initiated: Labs not indicated per PACC protocol, EKG not indicated per [facility] protocol Planned Anesthetic: Per anesthesia choice Instructions Given to Patient: Patient given verbal instructions and voices comprehension and compliance. Copy sent electronically via My Chart, email, or mobile device. This is a virtual visit. It required patient-provider interaction for the medical decision making as documented above. SIGNATURE: Taylor Bentley PA-C PATIENT NAME: Tyler Ho DATE: 01/30/2024 TIME: 7:40 AM PAGER/CONTACT #: [facility] 01-30-2024 History and physical note Images from the original note were not included. PREANESTHESIA CONSULT CLINIC TELEHEALTH VISIT Patient has been identified by name and date of : Yes This is a virtual visit using [employer] Video Visit. It require patient-provider interaction for the medical decision making as documented below. Reason for contact: PACC visit Accompanied by: Self Scheduled Surgery: Procedure(s) (LRB): HYSTEROSCOPY W/ DIVISION/RESECTION INTRAUTERINE SEPTUM (N/A) I have communicated my name and active licensure. The patient's identity and physical location were verified at the time of this visit. Either the patient or their legal textile designs sales representative has been informed of the risks and benefits of -- and alternatives to -- treatment through a remote evaluation and consents to proceed with the evaluation remotely. ASSESSMENT: Assessment: There is no known pertinent medical condition which may affect smith-operative course METS: Walk a block or two on level ground (2.75 METs) Do moderate work around the house such as vacuuming, sweeping floors, or carrying in groceries (3.50 METs) Climb a flight of stairs or walk up a hill (5.50 METs) Patient denies any chest pain or undue shortness of breath with the above physical activity. Hiking every other week ANESTHESIA FINDINGS: Intubation History: No prior intubation as an adult Significant Anesthesia Considerations: None Airway Exam: General: Normal appearance Mallampati Score is CLASS II ULBT: Class I - Lower incisors can bite the upper lip above the ulices line Neck: Normal appearance and function Mouth: Normal tongue size and Mouth opening greater than 2 finger breaths Dentition: Intact Airway History: No abnormal airway history STOP BANG Score: Criteria: Tired Score = 1 Subjective CHIEF COMPLAINT: Patient presents with: Pre-Op Visit HPI: This is a 28 year old female who presents with history of 2nd trimester and late 1st trimester miscarriages. She had further evaluation which revealed septate uterus. She denies pelvic pain, abnormal vaginal bleeding or discharge. She elects to proceed with above procedure. ACTIVE PROBLEM LIST Anxiety and Depression History reviewed. No pertinent past medical history. PAST SURGICAL HISTORY Procedure Laterality Date TONSILLECTOMY & ADENOIDECTOMY <AGE 11 2002 FAMILY HISTORY Problem Relation Age of Onset No Known Problems Mother No Known Problems Father Anesthesia Problems No Family History Social History Tobacco Use Smoking status: Never Smokeless tobacco: Never Vaping Use Vaping Use: Never used Substance Use Topics Alcohol use: Yes Comment: every other day 1 drink Drug use: Never ALLERGIES No Known Allergies MEDICATIONS: No current outpatient medications on file. No current facility-administered medications for this visit. COVID-19 Immunization Status Overdue - Covid-19 Vaccine ( season) Never done No completion, postpone, frequency change, or communication history exists for this topic. REVIEW OF SYSTEMS: Pain Assessment: General: No weight loss, malaise or fevers. Neuro: No history of TIA's, stroke, [employer] tumor, impaired sensorium, hemiplegia, paraplegia or quadraplegia. No neurological symptoms or problems. Respiratory: No history of current cough or dyspnea, or pneumonia in the past 6 weeks. No history of respiratory/pulmonary symptoms or problems. Cardiovascular: Positive for: history of murmur as a young adult - had testing about 5 years and was told it was "fine", Negative for Recent [place], Arrhythmia, CAD, Chest Pain, CHF, DVT/PE, edema, orthopnea, syncope GI: No history of GI symptoms or problems. No history of esophageal varices, recent ascites, or ETOH greater than 2 drinks per day. : No history of dysuria, frequency or incontinence,, stones or chronic kidney disease UTILIZATION ENGINEER: See HPI : Denies, Patient's last menstrual period was 01/12/2024. Endocrine: No history of diabetes. Has not taken steroids within the past 30 days. No history of endocrinological symptoms or problems. Hematology: No history of bleeding or clotting disorder. Pt is not taking anti-coagulation or platelet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 studies were also normal. The left lateral and medial plantar sensory nerve conduction studies were normal. Needle EMG of the tested muscle showed no abnormal spontaneous activity. Normal motor unit action potentials and recruitment patterns were seen. Lauri Merrill MD Diplomate, ABPN, NBPAS Clinical Neurophysiology, Neurology, Vascular Neurology and Sleep Medicine [place] [phone] Motor NCS Nerve / Sites Muscle Latency Amplitude Distance Velocity ms mV cm m/s L Median - APB Wrist APB 3.25 9.0 7 Elbow APB 7.08 8.8 23 60.0 L Ulnar - ADM Wrist ADM 2.52 9.7 6.5 B.Elbow ADM 6.19 9.2 24.5 66.8 A.Elbow ADM 7.98 8.9 11.5 64.2 L Deep peroneal (Fibular) - EDB Ankle EDB 4.58 7.1 8.5 Fib Head EDB 11.75 6.3 35 48.8 Knee EDB 13.31 6.1 7 44.8 L Tibial - AH Ankle AH 3.75 15.0 8 Knee AH 14.08 1.4 45 43.5 Sensory NCS Nerve / Sites Peak Amp Amp.2-3 Distance Velocity d Lat.2 ms V V cm m/s ms L Median - Digit II Wrist 2.96 49.7 78.6 13 55 L Ulnar - Digit V Wrist 2.54 50.3 67.9 11 57 L Radial - Snuff Forearm 1.73 43.3 45.2 10 77 L Sural - Lat Mall Calf 3.83 20.8 29.9 14 47 L Superficial peroneal - Ankle Lat leg 3.71 7.0 4.6 14 48 L Medial plantar, Lateral plantar - Ankle (Medial, lateral sole) Medial plantar Sole 3.40 6.6 5.4 14 57 Lateral plantar Sole 3.44 6.1 11.1 14 49 -0.04 EMG Summary Table Spontaneous Activity Amplitude Duration Recruitment Polyphasia Comment Muscle Ins Act Fib PSW Fasc - - - - - L. Vastus lateralis Normal 0 0 0 Normal Normal Normal Normal Normal L. Semitendinosus Normal 0 0 0 Normal Normal Normal Normal Normal L. Tibialis anterior Normal 0 0 0 Normal Normal Normal Normal Normal L. Gastrocnemius (Medial head) Normal 0 0 0 Normal Normal Normal Normal Normal L. Abductor hallucis Normal 0 0 0 Normal Normal Normal Normal Normal L. Lumbar paraspinals Normal 0 0 0 Normal Normal Normal Normal Normal L. Cervical paraspinals Normal 0 0 0 Normal Normal Normal Normal Normal L. Deltoid Normal 0 0 0 Normal Normal Normal Normal Normal L. Triceps brachii Normal 0 0 0 Normal Normal Normal Normal Normal L. Biceps brachii Normal 0 0 0 Normal Normal Normal Normal Normal L. Pronator teres Normal 0 0 0 Normal Normal Normal Normal Normal L. Extensor digitorum communis Normal 0 0 0 Normal Normal Normal Normal Normal L. First dorsal interosseous Normal 0 0 0 Normal Normal Normal Normal Normal L. Abductor pollicis brevis Normal 0 0 0 Normal Normal Normal Normal Normal documented in this encounter [facility] 07-03-2022 Note 85 Date of Procedure: 07/03/2022 Pathologist: [facility], Cytology Date Reported: 07/05/2022 Date Received: 07/03/2022 Submitting Physician: DAVID BUI MD Attending Physician: DAVID BUI MD FINAL CYTOLOGICAL INTERPRETATION A. THINPREP PAP CERVICAL: Specimen Adequacy: SATISFACTORY FOR EVALUATION. Quality Indicator: Absence of endocervical/transformation zone component. General Categorization: NEGATIVE FOR INTRAEPITHELIAL LESION OR MALIGNANCY. Ancillary Testing: Specimen does not meet the requisition-stated criteria for HPV testing. See Pap test interpretation above. This specimen has been analyzed by the ThinPrep Imaging System ([employer] an automated imaging and review system, which assists the laboratory in evaluating cells on ThinPrep Pap tests. Following automated imaging, selected hdz from every slide were reviewed by a vp business development and/or pathologist. Electronically Signed Out By [facility], Cytology//IK By the signature on this report, the individual or group listed as making the Final Interpretation/Diagnosis certifies that they have reviewed this case. Diagnostic interpretation performed at [facility] [address] [facility] [address] Educational Note: Cervical cytology is a screening procedure primarily for squamous cancers and precursors and has associated false-negative and false-positive results as evidenced by published data. Your patient?s test should be interpreted in this context, together with patient?s history and clinical findings. Regular sampling and follow-up of unexplained clinical signs and symptoms are recommended to minimize false negative results. Clinical History Date of Last Menstrual Period: 06/09/2022 Other Clinical Conditions: HPV Reflex for ASC-US only - Include HPV Genotype Annual Clinical Diagnosis History: Encounter for Papanicolaou smear of cervix - (Z12.4); Women's annual routine gynecological examination - (Z01.419) Source of Specimen A: THINPREP PAP CERVICAL [facility] Department of Pathology [address] [place], [place] [id number] [place] [address] Comment on above: Performed By: #### C #### [facility] Cytology [address] [place] [id number] 07-11-2021 History of Present illness Narrative Presents for annual exam. She voices no complaints and is doing well. Denies any bowel or bladder problems. Denies any breast problems. Using nothing for contraception. 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 [facility] Work Phone: Evaluation note Constitutional: Well developed, awake/alert/oriented x3, no distress, alert and cooperativeSkin: Warm and dry, no lesions, no rashesEyes: PERRL, EOMI, clear scleraRespiratory/Thorax: NonlaboredCardiovascular: Regular rateGastrointestinal: Soft nondistended uterus firm 3 below umbilicusExtremities: Negative calf pain [facility] Evaluation note Diagnosis LUE numbness- Primary Disturbance of skin sensation Numbness and tingling Disturbance of skin sensation [facility] Numbness- Primary Disturbance of skin sensation [facility] Diagnosis Vitamin B12 deficiency- Primary Other B-complex deficiencies Vitamin D deficiency Numbness and tingling in left arm Joint stiffness Stiffness of joint, not elsewhere classified, unspecified site Wellness examination Lipid screening Screening for lipoid disorders Attempting to conceive documented in this encounter 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 [facility] Work Phone: Evaluation note* Diagnosis Numbness- Primary Disturbance of skin sensation Arthralgia, unspecified joint Positive KENISHA (antinuclear antibody) Other and unspecified nonspecific immunological findings documented in this encounter [facility] note* Diagnosis Preop examination- Primary Preoperative examination, unspecified Septate uterus documented in this encounter [facility] note* Diagnosis Septate uterus- Primary Septate uterus documented in this encounter [facility] note* Diagnosis Numbness and tingling in left hand- Primary Disturbance of skin sensation Slow involuntary movements documented in this encounter [facility] note* Diagnosis Pain Generalized pain documented in this encounter [facility] note* Diagnosis Left hand weakness- Primary Muscle weakness (generalized) Numbness and tingling in left hand Disturbance of skin sensation Peripheral polyneuropathy Unspecified hereditary and idiopathic peripheral neuropathy documented in this encounter [facility] note* Diagnosis Numbness and tingling in left hand Disturbance of skin sensation Left hand weakness Muscle weakness (generalized) documented in this encounter [facility] note* Diagnosis [employer] demyelination (HCC)- Primary Demyelinating disease of central nervous system, unspecified documented in this encounter [facility] note* Diagnosis Left hand weakness- Primary Muscle weakness (generalized) Low vitamin B12 level Other B-complex deficiencies documented in this encounter [facility] note* Diagnosis Multiple sclerosis (HCC)- Primary Multiple sclerosis Left hand weakness Muscle weakness (generalized) Routine health maintenance Routine general medical examination at a [facility] care facility Vitamin D deficiency Unspecified vitamin D deficiency documented in this encounter [facility] note* Diagnosis Multiple sclerosis (HCC)- Primary Multiple sclerosis documented in this encounter [facility] note* Diagnosis Multiple sclerosis (HCC)- Primary Multiple sclerosis [facility]* Diagnosis Multiple sclerosis (HCC)- Primary Multiple sclerosis documented in this encounter [facility] note* Diagnosis Multiple sclerosis (HCC)- Primary Multiple sclerosis [facility] [place] [facility]* Diagnosis Multiple sclerosis (HCC) Multiple sclerosis documented in [facility] [place] noteNo assessment information availableWFirelands [facility] Work Phone: History of Present illness Narrative* Tyler is a 26 yo female, here today with continued concerns of numbness and tingling. Previous work up does show vitamin B12 and vitamin D deficiency, she reports she did get her B12 injection and is taking her Vitamin D weekly as prescribed. * She feels as though the numbness/tingling is worsening and is now having concern for weakness and "brain fog" * complains of continued numbness and tingling to left side, specifically the hand * occasionally numbness to left rib area and thigh area, but hand is constant * reports last week she was having difficulty walking due to "leg was heavy", Patient has spent time researching and she is concerned with neurological disorders * my hand feels " asleep" * "I feel like i cant move my fingers" * only on the left side this week * 2 weeks ago it was both sides * 1 year ago it was only legs lasted about 1 month and no medical care was sought out * now its worse lasting 2.5-3 months * difficulty finding words at times, * complains of achiness * "haven't felt well my whole my life" * denies SHETH, dizziness, SOB, or CP [facility] Work Phone: Reason for referral (narrative)* Consultation (Routine) - Pending Review Specialty Diagnoses / Procedures Referred By Rome joyce Referred To Contact Physical Therapy Diagnoses Numbness and tingling in left arm Joint stiffness Josh Arthur APRN-CNP [address] [facility], [place] [address] Referral ID Status Reason Start Date Expiration Date Visits Requested Visits Authorized [id number] Pending Review Specialty Services Required 06/19/2023 06/18/2024 1 1 * Consultation (Routine) - Authorized Specialty Diagnoses / Procedures Referred By Rome joyce Referred To Contact Primary Care Procedures Follow Up In Primary Care - Health Maintenance Josh Arthur APRN-CNP [address] [facility] [facility], [place] [address] Referral ID Status Reason Start Date Expiration Date V isits Requested Visits Authorized [id number] Authorized 06/19/2023 06/18/[address] [facility] Work Phone: Reason for referral (narrative)* Diagnostic Procedure Only (Routine) - Closed Specialty Diagnoses / Procedures Referred By Contac t Referred To Contact XR IMAGING Diagnoses Pain Procedures XR HAND GENERAL 3V PA/LAT/OBL LEFT RADEX HAND MINIMUM 3 VIEWS Pilar Ortiz MD [address] [place] [phone] Xr Imaging [facility] Referral ID Status Reason Start Date Expiration Date V isits Requested Visits Authorized [id number] Closed Auto-Generate d Referral 03/31/2024 04/30/[address] [facility] for referral (narrative)No reason for referral information availableWFirelands [facility] Work Phone: Reason for visit Narrative* Diagnostic Procedure Only (Routine) - Closed Specialty Diagnoses / Procedures Referred By Contac t Referred To Contact XR IMAGING Diagnoses Pain Procedures XR HAND GENERAL 3V PA/LAT/OBL LEFT RADEX HAND MINIMUM 3 VIEWS Pilar Ortiz MD [address] [place] [address] Xr Imaging [facility] Referral ID Status Reason Start Date Expiration Date V isits Requested Visits Authorized [id number] Closed Auto-Generate d Referral 03/31/2024 04/30/[address] [facility] for visit Narrative* MRI/CT (Routine) - Closed Specialty Diagnoses / Procedures Referred By Contac t Referred To Contact MR IMAGING Diagnoses Multiple sclerosis (HCC) Procedures MRI BRAIN WO/W IVCON MRI BRAIN BRAIN STEM W/O W/CONTRAST MATERIAL Maria Teresa Eaton MD [address] [place] [address] Phone: tel: fax: [place] [address] Referral ID Status Reason Start Date Expiration Date V isits Requested Visits Authorized [id number] Closed Auto-Generate d Referral 11/19/2024 01/18/2025 1 1 [facility] Reason for Referral Specialty Diagnoses / Procedures Referred By Contac t Referred To Contact Neurology Diagnoses LUE numbness Numbness and tingling Josh Arthur, HE[facility]CARE [facility] MED[facility] [address] [place] [phone] Lauri Merrill MD [address] [place] [phone] Referral ID Status Reason Start Date Expiration Date V isits Requested Visits Authorized [id number] Authorized 06/27/2022 06/27/2023 1 1 Specialty Diagnoses / Procedures Referred By Contac t Referred To Contact Neurology Diagnoses Numbness Catherine, Lopez Saleh, DO [address] [place] [phone] Alfredito Zavala MD [address] [place] [address] Referral ID Status Reason Start Date Expiration Date V isits Requested Visits Authorized [id number] Authorized 12/13/2023 12/12/2024 1 1 Specialty Diagnoses / Procedures Referred By Contac t Referred To Contact [facility] Diagnoses Numbness and tingling in left hand Slow involuntary movements Procedures CONSULT TO [facility] 60 MINS Pilar Ortiz MD [address] [place] [address] [facility] [place] [address] [place] [address] Referral ID Status Reason Start Date Expiration Date Visits Requested Visits Authorized [id number] Pending Review Auto-Generat ed Referral 04/01/2024 04/01/2025 1 1 Specialty Diagnoses / Procedures Referred By Contac t Referred To Contact Neurology Diagnoses Numbness and tingling in left hand Procedures CONSULT TO NEUROLOGY OFFICE/OUTPATIENT [facility] 60 MINUTES Pilar Ortiz MD [address] [place] [address] Referral ID Status Reason Start Date Expiration Date Visits Requested Visits Authorized [id number] Authorized PCP Requested Referral 04/01/2024 04/01/2025 1 1 Specialty Diagnoses / Procedures Referred By Contac t Referred To Contact MR IMAGING Diagnoses Numbness and tingling in left hand Left hand weakness Procedures MRI CERVICAL SPINE WO/W IVCON MRI SPINAL CANAL CERVICAL W/O & [place] [address] [place] [phone] [place] [address] Referral ID Status Reason Start Date Expiration Date Visits Requested Visits Authorized [id number] Pending Review Auto-Generat ed Referral 04/02/2024 05/02/2025 1 1 Specialty Diagnoses / Procedures Referred By Contac t Referred To Contact MR IMAGING Diagnoses Numbness and tingling in left hand Left hand weakness Procedures MRI BRAIN WO/W IVCON MRI BRAIN BRAIN STEM W/O W/[place] [address] [address] [place] [place] [place] [address] [place] [address] Referral ID Status Reason Start Date Expiration Date Visits Requested Visits Authorized [id number] Pending Review Auto-Generat ed Referral 04/02/2024 05/02/2025 1 1 Referral ID Status Reason Start Date Expiration Date V isits Requested Visits Authorized [id number] Closed Auto-Generate d Referral 04/02/2024 06/01/2024 1 1 Referral ID Status Reason Start Date Expiration Date V isits Requested Visits Authorized [id number] Closed Auto-Generat ed Referral Clearance Not Met - Admin/Chairm an/Director Advise to Postpone/Res chedule or Not Proceed 04/02/2024 06/01/2024 1 1 Specialty Diagnoses / Procedures Referred By Contac t Referred To Contact Neurology Diagnoses Left hand weakness Procedures CONSULT TO NEUROLOGY OFFICE/OUTPATIENT [facility] [address] [place] [address] [address] [place] [address] Referral ID Status Reason Start Date Expiration Date Visits Requested Visits Authorized [id number] Authorized PCP Requested Referral 05/14/2024 05/14/2025 1 1 Specialty Diagnoses / Procedures Referred By Contac t Referred To Contact Diagnoses Routine health maintenance Procedures ESTABLISH WITH PRIMARY CARE NEW PATIENT OFFICE/OUTPATIENT NEW HIGH [facility] 60 MINUTES Maria Teresa Eaton MD [address] [place] [phone] Referral ID Status Reason Start Date Expiration Date V isits Requested Visits Authorized [id number] Authorized 05/26/2024 08/24/2024 1 1 Specialty Diagnoses / Procedures Referred By Contac t Referred To Contact Diagnoses Multiple sclerosis (HCC) Procedures NEUROPSYCHOLOGICAL TESTING CONSULT NEUROBEHAVIORAL STATUS XM PHYS/QHP 1ST HOUR NEUROPSYCHOLOGICAL TST EVAL PHYS/QHP 1ST HOUR NEUROPSYCHOLOGICAL TST EVAL PHYS/QHP EA ADDL HR PSYCL/NRPSYCL TST TECH 2+ TST 1ST 30 MIN PSYCL/NRPSYCL TST TECH 2+ TST EA ADDL 30 MIN Maria Teresa Eaton MD [address] [place] [address] Referral ID Status Reason Start Date Expiration Date Visits Requested Visits Authorized [id number] Authorized PCP Requested Referral 09/15/2024 09/15/2025 1 3 Specialty Diagnoses / Procedures Referred By Rome t Referred To Contact MR IMAGING Diagnoses Multiple sclerosis (HCC) Procedures MRI BRAIN WO/W IVCON MRI BRAIN BRAIN STEM W/O W/CONTRAST MATERIAL Maria Teresa Eaton MD [address] [place] [place] [address] Mr Imaging [place] [address] Referral ID Status Reason Start Date Expiration Date Visits Requested Visits Authorized [id number] Pending Review Auto-Generat ed Referral 09/15/2024 10/15/2025 1 1 Summary Purpose Family History No Family History Records FoundUnknown Family Member Name Dates Details Family history of hypotensio n: Mother(V17.49, Z82.49) Status:Active Family history of anemia: Mo ther(V18.2, Z83.2) Status:Active Enlarged aorta: Mother Status:Active No pertinent family history: Father(V49.89, Z78.9) Status:Active Unknown Family Member Name Dates Details Family history of hypotensio n: Mother(V17.49, Z82.49) Status:Active Family history of anemia: Mo ther(V18.2, Z83.2) Status:Active Enlarged aorta: Mother Status:Active No pertinent family history: Father(V49.89, Z78.9) Status:Active Unknown Family Member Name Dates Details Family history of hypotensio n: Mother(V17.49, Z82.49) Status:Active Family history of anemia: Mo ther(V18.2, Z83.2) Status:Active Enlarged aorta: Mother Status:Active No pertinent family history: Father(V49.89, Z78.9) Status:Active Unknown Family Member Name Dates Details Family history of hypotensio n: Mother(V17.49, Z82.49) Status:Active Family history of anemia: Mo ther(V18.2, Z83.2) Status:Active Enlarged aorta: Mother Status:Active No pertinent family history: Father(V49.89, Z78.9) Status:Active Unknown Family Member Name Dates Details No pertinent family history: Father(V49.89, Z78.9) Status:Active Enlarged aorta: Mother Status:Active Family history of anemia: Mo ther(V18.2, Z83.2) Status:Active Family history of hypotensio n: Mother(V17.49, Z82.49) Status:Active Unknown Family Member Name Dates Details Family history of hypotensio n: Mother(V17.49, Z82.49) Status:Active Family history of anemia: Mo ther(V18.2, Z83.2) Status:Active Enlarged aorta: Mother Status:Active No pertinent family history: Father(V49.89, Z78.9) Status:Active Psychological disorder: Moth er Status:Active Unknown Family Member Name Dates Details Family history of hypotensio n: Mother(V17.49, Z82.49) Status:Active Family history of anemia: Mo ther(V18.2, Z83.2) Status:Active Enlarged aorta: Mother Status:Active No pertinent family history: Father(V49.89, Z78.9) Status:Active Psychological disorder: Moth er Status:Active Unknown Family Member Name Dates Details Family history of hypotensio n: Mother(V17.49, Z82.49) Status:Active Family history of anemia: Mo ther(V18.2, Z83.2) Status:Active Enlarged aorta: Mother Status:Active No pertinent family history: Father(V49.89, Z78.9) Status:Active Psychological disorder: Moth er Status:Active Unknown Family Member Name Dates Details Family history of hypotensio n: Mother(V17.49, Z82.49) Status:Active Family history of anemia: Mo ther(V18.2, Z83.2) Status:Active Enlarged aorta: Mother Status:Active No pertinent family history: Father(V49.89, Z78.9) Status:Active Psychological disorder: Moth er Status:Active Advance Directives No Advanced Directives Records FoundNo Advanced Directives Records FoundNo Advanced Directives Records FoundNo Advanced Directives Records FoundNo Advanced Directives Records FoundNo Advanced Directives Records FoundNo Advanced Directives Records FoundNo Advanced Directives Records FoundNo Advanced Directives Records FoundNo Advanced Directives Records Found Chief Complaint Numbness left side/left hand.New Patient is here for her yearly exam and pap test. LMP: 06/09/2022. Patient does not do regular self breast exams and has some questions regarding recent M/C, patient had one at 14 weeks and one at 10 weeks. Chief Complaint and Reason for Visit Chief Complaint Fertility consult Reason for Visit Hirsutism Recurrent loss Secondary female infertility Uterine anomaly Chief Complaint Admit Date INT LAB ORDERS April 28, 2025 4:39pm Additional Source Comments <item> Privacy Markings (unrecogniz ed section and content) Section Author: Henna Roland PROHIBITION ON REDISCLOSURE OF CONFIDENTIAL INFORMATION This notice accompanies a disclosure of information concerning a client made to you with the consent of such client. INFORMATION SOURCE (unrecogn ized section and content) DATE CREATED AUTHOR 12/22/2020 [facility] DATE CREATED AUTHOR AUTHOR'S ORGANIZ ATION 07/04/2022 [facility] DATE CREATED AUTHOR AUTHOR'S ORGANIZ ATION 07/06/2022 [facility] DATE CREATED AUTHOR AUTHOR'S ORGANIZ ATION 06/20/2023 [facility] DATE CREATED AUTHOR AUTHOR'S ORGANIZ ATION 06/23/2023 [facility] DATE CREATED AUTHOR AUTHOR'S ORGANIZ ATION 12/21/2023 [facility] DATE CREATED AUTHOR AUTHOR'S ORGANIZ ATION 12/30/2023 [facility] DATE CREATED AUTHOR AUTHOR'S ORGANIZ ATION 09/17/2024 [facility] DATE CREATED AUTHOR AUTHOR'S ORGANIZ ATION 04/03/2025 [facility] DATE CREATED AUTHOR AUTHOR'S ORGANIZ ATION 06/04/2025 [facility] Reason for Visit (unrecogniz ed section and content) Reason Comments Infusion Ocrevus Specialty Diagnoses / Procedures Referred By Contac t Referred To Contact Diagnoses Multiple sclerosis (HCC) Procedures INJECTION, OCRELIZUMAB, 1 MG Maria Teresa Eaton MD [address] [place] [address] Neur Treatment [place] [address] [place] [address] Referral ID Status Reason Start Date Expiration Date V isits Requested Visits Authorized [id number] Authorized 06/17/2024 06/16/2025 3 3 Specialty Diagnoses / Procedures Referred By Contac t Referred To Contact Neurology Diagnoses LUE numbness Numbness and tingling Josh Arthur, HEALTHCARE OR MEDICAL [address] [place] [address] Lauri Merrill MD [address] [facility] [address] [place] [address] Referral ID Status Reason Start Date Expiration Date V isits Requested Visits Authorized [id number] Pending Review 06/27/2022 06/27/2023 1 1 Reason Comments Annual Exam Numbness Still having this in the arms Joint Pain Mostly the fingers Specialty Diagnoses / Procedures Referred By Ashleyac t Referred To Contact Radiology / RADIO MRI [facility] MOB Diagnoses MRI PELVIS W/WO CONTRAST 73443 Q89.9 CONGENITAL MALFORMATION, UNSPECIFIED Procedures MRI PELVIS W/O & W/CONTRAST MATERIAL MRI WWO PEL SOFT 300 Umm Murphy [address] [place] [address] Radio Mri [facility] [address] [place] [address] Referral ID Status Reason Start Date Expiration Date Visits Re quested Visits Authorized [id number] Closed 11/28/2023 08/18/2024 1 1 Specialty Diagnoses / Procedures Referred By Contac t Referred To Contact Rheumatology Diagnoses Arthralgia, unspecified joint Positive KENISHA (antinuclear antibody) Josh Arthur, HEALTHCARE OR MEDICAL [address] [place] [address] Lopez Alexander, DO [address] [place] [id number] Referral ID Status Reason Start Date Expiration Date Visits Re quested Visits Authorized [id number] Closed 06/28/2023 06/27/2024 1 1 Reason Comments Pre-Op Visit Reason Comments Uterine Septum Reason Comments Patient Question Reason Comments New Pain Numbness Reason Comments New Patient Numbness/Tingling Left hand/ radiates all way up to shoulder and legs Weakness Specialty Diagnoses / Procedures Referred By Contac t Referred To Contact Neurology Diagnoses Numbness and tingling in left hand Procedures CONSULT TO NEUROLOGY OFFICE/OUTPATIENT [facility] 60 MINUTES Pilar Ortiz MD [address] [place] [address] Referral ID Status Reason Start Date Expiration Date V isits Requested Visits Authorized [id number] Closed PCP Requested Referral 04/01/2024 04/01/2025 1 1 Specialty Diagnoses / Procedures Referred By Rome t Referred To Contact MR IMAGING Diagnoses Numbness and tingling in left hand Left hand weakness Procedures MRI BRAIN WO/W IVCON MRI BRAIN BRAIN STEM W/O W/[place] [address] [place] [address] [place] [address] Referral ID Status Reason Start Date Expiration Date V isits Requested Visits Authorized [id number] Closed Auto-Generat ed Referral Clearance Not Met - Admin/Chairm an/Director Advise to Postpone/Res chedule or Not Proceed 04/02/2024 06/01/2024 1 1 Reason Comments Results - Mri Reason Comments Established Patient Limb Weakness Reason Comments Juvenile Probation Officer - [facility] n ew patient referral triage Reason Comments New Patient [employer] Demyelination Specialty Diagnoses / Procedures Referred By Rome joyce Referred To Contact Neurology Diagnoses Left hand weakness Procedures CONSULT TO NEUROLOGY OFFICE/OUTPATIENT NEW HIGH MDM 60 [place] [address] [place] [address] Referral ID Status Reason Start Date Expiration Date V isits Requested Visits Authorized [id number] Closed PCP Requested Referral 05/14/2024 05/14/2025 1 1 Reason Comments Medication Authorization Prior Auth Arturo ed; appeal requested Reason Comments Appointment lvm for patient to c all so we can ge her scheduled for her start up dose of her infusion and a 3 month follow up Reason Comments Appointment lvm informing pawan t that her infusion has been scheduled seeing as she should be scheduled for the start up dose and we have to wait for authorization to schedule Reason Comments Appointment Called to schedule O crevus start up dose. patient has been approved for free drug. LVM with phone number to call and schedule Reason Comments Infusion Reason Comments Appointment lvm for patient to c all so we can get her scheduled for her neuropsychological test Reason Comments Follow Up Reason Onset Date Comments Refill Request 11/09/2024 Care Teams (unrecognized sec tion and content) Hose Seamer Relationship Specialty Start Date End Date Satinder Dos Santos MD [address] [place] [address] PCP - General Family Medicine 10/18/22 Hose Seamer Relationship Specialty Start Date End Date Josh Arthur, PRESS BREAKER-HEALTHCARE OR MEDICAL [address] [facility], [address] [place] [address] PCP - General 06/04/22 Josh Arthur, PRESS BREAKER-HEALTHCARE OR MEDICAL [address] [facility], [address] [place] [address] PCP - [facility] PCP 12/17/22 Team Status: Active Member Role Status Dates No Primary Care Physician Primary Care Provider Active Team Status: Inactive Member Role Status Dates Dr. Umm Murphy MD Attending Provider Active JERSON MORENO Primary Care Provider, Referring Provider Active Team Status: Inactive Member Role Status Dates No Primary Care Physician Primary Care Provider Active Dr. Umm Murphy MD Attending Provider, Referr ing Provider Active Hose Seamer Relationship Specialty Start Date End Date Satinder Dos Santos MD [address] [place] [address] PCP - General Family Medicine 10/18/22 Hose Seamer Relationship Specialty Start Date End Date Umm Murphy MD [address] [place] [address] Referring Pie Maker 12/09/23 Hose Seamer Relationship Specialty Start Date End Date Umm Murphy MD [address] [place] [id number] Referring Pie Maker 12/09/23 Hose Seamer Relationship Specialty Start Date End Date Umm Murphy MD [address] [place] [phone] Referring Pie Maker 12/09/23 Hose Seamer Relationship Specialty Start Date End Date Umm Murphy MD [address] [place] [address] Referring Pie Maker 12/09/23 Hose Seamer Relationship Specialty Start Date End Date Umm Murphy MD [address] [place] [address] Referring Pie Maker 12/09/23 Hose Seamer Relationship Specialty Start Date End Date Umm Murphy MD [address] [place] [address] Referring Pie Maker 12/09/23 Hose Seamer Relationship Specialty Start Date End Date Umm Murphy MD [address] [place] [address] Referring Pie Maker 12/09/23 Hose Seamer Relationship Specialty Start Date End Date Umm Murphy MD [address] [place] [address] Referring Pie Maker 12/09/23 Hose Seamer Relationship Specialty Start Date End Date Umm Murphy MD [address] [place] [address] Referring Pie Maker 12/09/23 Hose Seamer Relationship Specialty Start Date End Date Umm Murphy MD [address] [place] [address] Referring Pie Maker 12/09/23 Hose Seamer Relationship Specialty Start Date End Date Umm Murphy MD [address] [place] [address] Referring Pie Maker 12/09/23 Hose Seamer Relationship Specialty Start Date End Date Umm Murphy MD [address] [place] [address] Referring Pie Maker 12/09/23 Hose Seamer Relationship Specialty Start Date End Date Umm Murphy MD [address] [place] [address] Referring Pie Maker 12/09/23 Hose Seamer Relationship Specialty Start Date End Date Umm Murphy MD [address] [place] [address] Referring Pie Maker 12/09/23 Hose Seamer Relationship Specialty Start Date End Date Umm Murphy MD [address] [place] [address] Referring Pie Maker 12/09/23 Hose Seamer Relationship Specialty Start Date End Date Umm Murphy MD [address] [place] [address] Referring Pie Maker 12/09/23 Hose Seamer Relationship Specialty Start Date End Date Umm Murphy MD [address] [place] [address] Referring Pie Maker 12/09/23 Hose Seamer Relationship Specialty Start Date End Date Umm Murphy MD [address] [place] [address] Referring Pie Maker 12/09/23 Hose Seamer Relationship Specialty Start Date End Date Umm Murphy MD [address] [place] [address] Referring Pie Maker 12/09/23 Hose Seamer Relationship Specialty Start Date End Date Umm Murphy MD [address] [place] [address] Referring Pie Maker 12/09/23 Team Status: Active Member Role/Relationship Status Dates No Primary Care Physician Primary care physician Activ e Team Status: Inactive Member Role/Relationship Status Dates No Primary Care Physician Primary care physician Activ e Start: April 28, 2025 End: April 28, 2025 Val Burnham CNM Attending physician Active Start: April 28, 2025 End: April 28, 2025 Val Burnham CNM Referring Provider Active S tart: April 28, 2025 End: April 28, 2025 Team Status: Active Member Role/Relationship Status Dates No Primary Care Physician Primary care physician Activ e Start: April 30, 2025 Val Burnham CNM Attending physician Active Start: April 30, 2025 Val Burnham CNM Referring Provider Active S tart: April 30, 2025 Team Status: Inactive Member Role/Relationship Status Dates No Primary Care Physician Primary care physician Activ e Start: April 30, 2025 End: April 30, 2025 Val Burnham CNM Attending physician Active Start: April 30, 2025 End: April 30, 2025 Val Burnham CNM Referring Provider Active S tart: April 30, 2025 End: April 30, 2025 Goals (unrecognized section and content) Goals may be documented in a n alternate sectionGoals may be documented in an alternate sectionGoals may be documented in an alternate section Source Comments (unrecognize d section and content) In the event this informatio n is protected by the Federal Confidentiality of Alcohol and Drug Abuse Patient Records regulations: The Federal rules restrict any use of the information to criminally investigate or prosecute any alcohol or drug abuse patient.[facility] Center[facility] the event this information is protected by the Federal Confidentiality of Alcohol and Drug Abuse Patient Records regulations: The Federal rules restrict any use of the information to criminally investigate or prosecute any alcohol or drug abuse patient.[facility] CenterIn the event this information is protected by the Federal Confidentiality of Alcohol and Drug Abuse Patient Records regulations: The Federal rules restrict any use of the information to criminally investigate or prosecute any alcohol or drug abuse patient.[facility] CenterIn the event this information is protected by the Federal Confidentiality of Alcohol and Drug Abuse Patient Records regulations: The Federal rules restrict any use of the information to criminally investigate or prosecute any alcohol or drug abuse patient.[facility] CenterIn the event this information is protected by the Federal Confidentiality of Alcohol and Drug Abuse Patient Records regulations: The Federal rules restrict any use of the information to criminally investigate or prosecute any alcohol or drug abuse patient.[facility] CenterIn the event this information is protected by the Federal Confidentiality of Alcohol and Drug Abuse Patient Records regulations: The Federal rules restrict any use of the information to criminally investigate or prosecute any alcohol or drug abuse patient.[facility] CenterIn the event this information is protected by the Federal Confidentiality of Alcohol and Drug Abuse Patient Records regulations: The Federal rules restrict any use of the information to criminally investigate or prosecute any alcohol or drug abuse patient.[facility] CenterIn the event this information is protected by the Federal Confidentiality of Alcohol and Drug Abuse Patient Records regulations: The Federal rules restrict any use of the information to criminally investigate or prosecute any alcohol or drug abuse patient.[facility] CenterIn the event this information is protected by the Federal Confidentiality of Alcohol and Drug Abuse Patient Records regulations: The Federal rules restrict any use of the information to criminally investigate or prosecute any alcohol or drug abuse patient.[facility] CenterIn the event this information is protected by the Federal Confidentiality of Alcohol and Drug Abuse Patient Records regulations: The Federal rules restrict any use of the information to criminally investigate or prosecute any alcohol or drug abuse patient.[facility] CenterIn the event this information is protected by the Federal Confidentiality of Alcohol and Drug Abuse Patient Records regulations: The Federal rules restrict any use of the information to criminally investigate or prosecute any alcohol or drug abuse patient.[facility] CenterIn the event this information is protected by the Federal Confidentiality of Alcohol and Drug Abuse Patient Records regulations: The Federal rules restrict any use of the information to criminally investigate or prosecute any alcohol or drug abuse patient.[facility] CenterIn the event this information is protected by the Federal Confidentiality of Alcohol and Drug Abuse Patient Records regulations: The Federal rules restrict any use of the information to criminally investigate or prosecute any alcohol or drug abuse patient.[facility] CenterIn the event this information is protected by the Federal Confidentiality of Alcohol and Drug Abuse Patient Records regulations: The Federal rules restrict any use of the information to criminally investigate or prosecute any alcohol or drug abuse patient.[facility] CenterIn the event this information is protected by the Federal Confidentiality of Alcohol and Drug Abuse Patient Records regulations: The Federal rules restrict any use of the information to criminally investigate or prosecute any alcohol or drug abuse patient.[facility] CenterIn the event this information is protected by the Federal Confidentiality of Alcohol and Drug Abuse Patient Records regulations: The Federal rules restrict any use of the information to criminally investigate or prosecute any alcohol or drug abuse patient.[facility] CenterIn the event this information is protected by the Federal Confidentiality of Alcohol and Drug Abuse Patient Records regulations: The Federal rules restrict any use of the information to criminally investigate or prosecute any alcohol or drug abuse patient.[facility] CenterIn the event this information is protected by the Federal Confidentiality of Alcohol and Drug Abuse Patient Records regulations: The Federal rules restrict any use of the information to criminally investigate or prosecute any alcohol or drug abuse patient.[facility] CenterIn the event this information is protected by the Federal Confidentiality of Alcohol and Drug Abuse Patient Records regulations: The Federal rules restrict any use of the information to criminally investigate or prosecute any alcohol or drug abuse patient.[facility] CenterIn the event this information is protected by the Federal Confidentiality of Alcohol and Drug Abuse Patient Records regulations: The Federal rules restrict any use of the information to criminally investigate or prosecute any alcohol or drug abuse patient.[facility] CenterIn the event this information is protected by the Federal Confidentiality of Alcohol and Drug Abuse Patient Records regulations: The Federal rules restrict any use of the information to criminally investigate or prosecute any alcohol or drug abuse patient.[facility] CenterIn the event this information is protected by the Federal Confidentiality of Alcohol and Drug Abuse Patient Records regulations: The Federal rules restrict any use of the information to criminally investigate or prosecute any alcohol or drug abuse patient.[facility] CenterIn the event this information is protected by the Federal Confidentiality of Alcohol and Drug Abuse Patient Records regulations: The Federal rules restrict any use of the information to criminally investigate or prosecute any alcohol or drug abuse patient.[facility] CenterIn the event this information is protected by the Federal Confidentiality of Alcohol and Drug Abuse Patient Records regulations: The Federal rules restrict any use of the information to criminally investigate or prosecute any alcohol or drug abuse patient.[facility] CenterIn the event this information is protected by the Federal Confidentiality of Alcohol and Drug Abuse Patient Records regulations: The Federal rules restrict any use of the information to criminally investigate or prosecute any alcohol or drug abuse patient.[facility] CenterIn the event this information is protected by the Federal Confidentiality of Alcohol and Drug Abuse Patient Records regulations: The Federal rules restrict any use of the information to criminally investigate or prosecute any alcohol or drug abuse patient.[facility] CenterIn the event this information is protected by the Federal Confidentiality of Alcohol and Drug Abuse Patient Records regulations: The Federal rules restrict any use of the information to criminally investigate or prosecute any alcohol or drug abuse patient.[facility] CenterIn the event this information is protected by the Federal Confidentiality of Alcohol and Drug Abuse Patient Records regulations: The Federal rules restrict any use of the information to criminally investigate or prosecute any alcohol or drug abuse patient.[facility] CenterIn the event this information is protected by the Federal Confidentiality of Alcohol and Drug Abuse Patient Records regulations: The Federal rules restrict any use of the information to criminally investigate or prosecute any alcohol or drug abuse patient.[facility] CenterIn the event this information is protected by the Federal Confidentiality of Alcohol and Drug Abuse Patient Records regulations: The Federal rules restrict any use of the information to criminally investigate or prosecute any alcohol or drug abuse patient.[facility] CenterIn the event this information is protected by the Federal Confidentiality of Alcohol and Drug Abuse Patient Records regulations: The Federal rules restrict any use of the information to criminally investigate or prosecute any alcohol or drug abuse patient.[facility] FOR RECORDS PERTAINING TO PATIENTS WHO ARE OR HAVE BEEN ENROLLED IN A CHEMICAL DEPENDENCY/SUBSTANCEABUSE PROGRAM, SOME INFORMATION MAY BE OMITTED. This clinical summary was aggregated from multiple sources. Caution should be exercised in using it in the provision of clinical care. This summary normalizes information from multiple sources, and as a consequence, information in this document may materially change the coding, format and clinical context of patient data. In addition, data may be omitted in some cases. CLINICAL DECISIONS SHOULD BE BASED ON THE PRIMARY CLINICAL RECORDS. [facility] [employer] [facility]. provides no warranty or guarantee of the accuracy or completeness of information in this document.
[2025-06-10 12:17] LABS: Hematocrit 40.8 % (37-47); Hemoglobin 13.9 g/dL (12.0-15.0); Immature Granulocytes Count 0.050 X10^3/uL (0.0-0.0); Mean Corp Hgb Conc 34.1 g/dL (32-36); Mean Corpuscular Volume 83.6 fL (81-99); Mean Platelet Vol. 10.3 fl (6.2-12.0); NRBC Flagged by Analyzer 0 % (0-5); Platelet Count 280 K/mm3 (150-450); RBC Distribution Width CV 13.2 % (11.6-14.6); RBC Distribution Width SD 40.6 fl (35.1-43.9); Red Blood Count 4.88 M/mm3 (4.2-5.4); White Blood Count 9.9 K/mm3 (4.4-11.0)
[2025-06-10 13:20] LABS: HIV Nonreactive (Nonreactive); Hepatitis B Surface Antigen Nonreactive (Nonreactive); Hepatitis C Antibody Nonreactive (Nonreactive); Syphilis Antibodies Nonreactive (Nonreactive); Vitamin D,25 Hydroxy 22.3 ng/mL (30-100)
[2025-06-11 22:07] LABS: Chlamydia By Nucleic Acid AMP Negative (Negative); Gonococcus By Nucleic Acid AMP Negative (Negative)
== END | disposition home or self-care (01) ==
PROVIDERS: Visit Provider Advanced Practice Midwife
DX: Z12.4 Encounter for screening for malignant neoplasm of cervix (principal); O09.90 Supervision of high risk pregnancy, unspecified, unspecified trimester; Z3A.00 Weeks of gestation of pregnancy not specified; E55.9 Vitamin D deficiency, unspecified; O99.280 Endocrine, nutritional and metabolic diseases complicating pregnancy, unspecified trimester
CPT/HCPCS: 36415; 82306; 85025; 86703; 86762; 86780; 86803; 86850; 86900; 86901; 87086; 87340; 87491; 87591; 88175; G0145